=== PATIENT | female | born 1980 | race Caucasian/White ===

== ENCOUNTER → 2017-06-22 14:55 | Outpatient (CLI) | payer BC, SELFPAY ==
--- NOTE | 2017-06-22 15:02 | US_ITS ---
US thyroid HISTORY: ITS.REASON: THYROMEGALY,GRAVES DISEASE IN REMISSION ORDERING PHYSICIAN: Janna Gomez PATIENT AGE: 37 years COMPARISON: 01/30/2008 FINDINGS: Right lobe: 4.8 x 2.2 x 2.6 cm. Heterogeneous echogenicity. No discrete nodule Left lobe: 4.7 x 1.8 x 1.8 cm with heterogeneous echogenicity and no discrete nodule Isthmus: Unremarkable FINDINGS: Mildly enlarged thyroid with heterogeneous echogenicity. No discrete nodule. Not significantly changed
== END ==
PROVIDERS: Family Provider Family Medicine; PCP Family Medicine; Visit Provider Nurse Practitioner Family
DX: E01.0 Iodine-deficiency related diffuse (endemic) goiter (principal); E05.00 Thyrotoxicosis with diffuse goiter without thyrotoxic crisis or storm
CPT/HCPCS: 76536

== ENCOUNTER → 2017-07-21 09:11 | Outpatient (CLI) | payer BC, SELFPAY ==
--- NOTE | 2017-07-21 09:21 | XR_ITS ---
XR chest 2V HISTORY: Shortness of breath ITS.REASON: SOB ORDERING PHYSICIAN: Janna Gomez PATIENT AGE: 37 years COMPARISON: 04/10/2016 FINDINGS: The cardiomediastinal silhouette and pulmonary vascularity are within normal limits. The lungs are clear without infiltrates, suspicious nodules, or pleural effusions. There is minimal thoracic curvature convex right. A calcified granulomas present in the left upper lobe No acute bony abnormalities. IMPRESSION: No change with no acute finding
[2017-07-21 10:02] VITALS: PULSE 87; PULSE 90
== END ==
PROVIDERS: Family Provider Family Medicine; PCP Family Medicine; Visit Provider Nurse Practitioner Family
DX: R06.02 Shortness of breath (principal)
CPT/HCPCS: 71046; 94060; 94640

== ENCOUNTER 2017-10-20 17:36 | Observation (INO) ==
[2017-10-20 18:33] LABS: Basophils % 0.3 % (0.1-2.0); Eosinophils # 0.2 K/mm3 (0.0-0.4); Eosinophils % 2.2 % (0.1-12.0); Hematocrit 39.1 % (37.0-47.0); Hemoglobin 13.3 g/dL (12.2-16.2); Lymphocytes # 1.8 K/mm3 (0.7-4.5); Lymphocytes % 23.7 K/mm3 (10-50); Mean Corpuscular HGB Conc 34.1 g/dL (31.8-35.4); Mean Corpuscular Hemoglobin 28.7 pg (27.0-31.2); Mean Corpuscular Volume 84.3 fl (81-99); Mean Platelet Volume 8.7 fl (7.4-10.4); Monocytes # 0.3 K/mm3 (0.1-1.0); Monocytes % 4.4 % (1.7-9.3); Neutrophils # 5.3 K/mm3 (1.8-7.8); Neutrophils % 69.3 % (37.0-80.0); Platelet Count 177 K/mm3 (142-424); Red Blood Count 4.64 M/mm3 (4.20-5.40); Red Cell Distribution Width 13.5 % (11.5-17.5); White Blood Count 7.7 K/mm3 (4.8-10.8)
[2017-10-20 18:44] LABS: Albumin Level 4.2 gm/dL (3.4-5.0); Albumin/Globulin Ratio 0.9 (1.1-1.8); Anion Gap 14.3 mEq/L (5-15); Bilirubin,Total 0.5 mg/dL (0.2-1.0); Calcium 9.8 mg/dL (8.5-10.1); Globulin 4.5 gm/dl (1.3-3.2); Potassium 3.3 mmoL/L (3.5-5.1); Total Protein,Serum 8.7 gm/dL (6.4-8.2)
--- NOTE | 2017-10-20 19:20 | Emergency Department Note ---
ED Disposition Clinical Impression: Acute appendicitis Qualifiers: Acute appendicitis type: unspecified acute appendicitis type Qualified Code(s) : K35.80 - Unspecified acute appendicitis Disposition: Admitted as Observation Condition on Discharge: Good Instructions: DI for Acute Abdomen Referrals: Janna Gomez APRN [Primary Care Provider] - - Critical Care Critical Care Time: No Attestation: On 10/20/17, the high probability of a clinically significant, sudden or life threatening deterioration of the following system(s) required my full and direct attention, intervention and personal management. The time I documented below is in addition to time spent performing reported procedures but includes the following listed in this critical care notation. Medical Decision Making - Medical Records Medical records reviewed: Yes: I reviewed the patient's medical records. - Klever Inquiry Pt receiving controlled substance: No Vital Signs: 10/20/17 17:53 10/20/17 18:08 Temperature 99.4 F 99.4 F Temperature Source Temporal Artery Scan Oral Pulse Rate [Brachial] 89 85 Respiratory Rate 18 16 Blood Pressure [Right Arm] 154/90 143/88 Blood Pressure Mean [Right Arm] 111 106 Blood Pressure Source [Right Arm] Automatic Cuff Blood Pressure Position [Right Arm] Sitting Sitting 02 Sat by Pulse Oximetry 100 98 Oxygen Delivery Method Room Air Room Air - Lab Data Lab results reviewed: Yes: I reviewed the patient's lab results. Lab Results 10/20/17 17:47: Urine Color Yellow, Urine Appearance Slightly cloudy, Urine pH 7.5, Ur Specific [place] 1.015, Urine Protein Negative, Urine Glucose (UA) Negative, Urine Ketones Negative, Urine Blood Trace, Urine Nitrate Negative, Urine Bilirubin Negative, Urine Urobilinogen 0.2, Ur Leukocyte Esterase Negative 10/20/17 18:20: WBC 7.7, RBC 4.64, Hgb 13.3, Hct 39.1, MCV 84.3, MCH 28.7, MCHC 34.1, RDW 13.5, Plt Count 177, MPV 8.7, Neut % (Auto) 69.3, Lymph % (Auto) 23.7 , [place] % (Auto) 4.4, Eos % (Auto) 2.2, Baso % (Auto) 0.3, Neut # (Auto) 5.3, Lymph # (Auto) 1.8, [place] # (Auto) 0.3, Eos # (Auto) 0.2, Baso # (Auto) 0.0 10/20/17 18:20: Sodium 138, Potassium 3.3 L, Chloride 101, Carbon Dioxide 26, Anion Gap 14.3, BUN 9, Creatinine 0.96, Estimated Creat Clear 81, Estimated GFR 66, Est GFR ( Amer) 80, Glucose 97, Calcium 9.8, Total Bilirubin 0.5, AST 12 L, ALT 12, Alkaline Phosphatase 66, Total Protein 8.7 H, Albumin 4.2, Globulin 4.5 H, Albumin/Globulin Ratio 0.9 L Result diagrams: 10/20/17 18:20 10/20/17 18:20 Orders (Tests/Meds): ORDERS Category Date Time Status CT abdomen pelvis wo con Stat Cat Scan 10/20/17 18:10 Taken - CT Data CT Scan: Abdomen, Pelvis Time Received: 19:[address] Reviewed: Yes: I have viewed the radiologist's interpretation Preliminary Findings: Abnormal (easrly appendicitis) - Physician Consults Physician Consulted: maggi Reason -: Admission, Pt condition Nausea/Vomiting/Diarrhea HPI - General Chief complaint: Abdominal Pain Stated complaint: Right lower side pain Time Seen by Provider: 10/20/17 19:20 Mode of Arrival: Ambulatory Source of Information: Patient Limitations: No Limitations Description of Symptoms (Recalled from ER Triage Doc. by RN): TO ED PER PVT CAR WITH C/O RT SIDE BACK PAIN RADIATING AROUND TO RLQ STARTING TODAY. SEEN AT A CLINIC TODAY WAS TOLD "HE DIDN'T THINK IT WAS APPENDICITIS" PT STATES PAIN GOT WORSE SO CAME TO THE HOSPITAL. PT DENIES ANY FEVER, CHILLS, NAUSEA OR VOMITING. STATES PAIN WORSE WITH WALKING. - History of Present Illness HPI Narrative: wf with progressive rt lower abd with nausea with no fever or rash and no trauma MD complaint: nausea, abdominal pain Onset (ago): day(s) Associated Abdominal Pain: Yes Location of pain: RLQ Severity: moderate Quality: dull, constant Consistency: constant - Related Data Home Medications Medication Instructions Recorded Confirmed levothyroxine 25 mcg tablet 25 mcg PO DAILY 90 Days #90 tab 08/13/17 10/20/17 sertraline 25 mg tablet 25 mg PO Q24H 08/13/17 10/20/17 Allergies Allergy/AdvReac Type Severity Reaction Status Date / Time No Known Allergies Allergy Verified 08/13/17 15:28 [facility] History I have reviewed the patient's past medical history: Yes Medical History: Reports:: Depression Other Surgeries: Yes: Hysterectomy-Partial Amputation: No Fractures: No - Social History Smoking Status: Former smoker Alcohol Intake: never Alcohol Intake Frequency:: holidays/special occasions only - Psychiatric History Expresses thoughts of harming self/others: None Suicide Plan Description: No Plan Pschychiatric History:: Reports:: Depression ROS Obtained: Yes All systems reviewed & no additional complaints - Constitutional Constitutional: Denies fever(s) - Eyes Eyes: Denies change in vision - ENT Ears, Nose, Mouth, and Throat: Denies sore throat - Cardiovascular Cardiovascular: Denies chest pain at rest - Respiratory Respiratory: No cough - Gastrointestinal Gastrointestingal: Reports: as per HPI, abdominal pain, nausea - Genitourinary Female Genitourinary: Denies hematuria - Musculoskeletal Musculoskeletal: Denies joint pain, Denies joint swelling - Integumentary/Breasts Skin/Breast: Denies rash - Neurologic Neurologic: Denies seizure-like activity Physical Exam - General General appearance: alert, in no apparent distress - Head Head exam: normocephalic - Eye Eye exam: Present: PERRL, EOMI. Absent: scleral icterus - ENT ENT exam: Present: mucous membranes moist - Neck Neck exam: Present: trachea midline - Respiratory Respiratory exam: Absent: respiratory distress - Cardiovascular Cardiovascular exam: Present: regular rate - Abdominal Exam Abdominal exam: Present: soft, tenderness, tenderness at McBurney's Point Abdominal tenderness: Present: RLQ - Extremities Exam Extremities exam: Absent: full ROM - Neurological Exam Neurological exam: Present: alert, oriented X3, CN II-XII intact - Psychiatric Psychiatric exam: Present: normal affect - Skin Skin exam: Absent: rash
--- NOTE | 2017-10-20 21:43 | Progress Note ---
[facility] Anesthesia Checklist - Structural Data Admitted From: Home Planned Operative Procedure/s: lap appy Consent for Planned Operative Procedure(s) Verified: Yes Verified Documents: Surgical Consent - Airway Assessment C-Spine Mobility Assessed: Yes TMJ Mobility Assessed: Yes Dentition: Edentulous - Neurological Assessment Level of Consciousness: Awake, Alert, Appropriate - Anesthesia Plan Anesthesia Risk discussed: Yes Anesthesia Plan: Verified ASA Class: II Anesthesia Type: General [facility] Anesthesia HX I have reviewed the patient's past medical history: Yes Medical History: Reports:: Depression Denies:: Seizures Other Surgeries: Yes: Hysterectomy-Partial Amputation: No Fractures: No
--- NOTE | 2017-10-20 21:44 | Progress Note ---
[facility] Anesthesia Record Part I Intake, IV Amount: 1,500 Estimated blood loss (mL): 0 Urine output (mL): 300 Blood Pressure: 126/64 SaO2: 99 Pulse Rate: 57 Respiratory Rate: 12 Temperature: 97.7 F Patient is:: Awake, Stable Stable to PACU at:: 21:40
--- NOTE | 2017-10-20 21:44 | Progress Note ---
[facility] Anesthesia Record Part II Discharge Time: 22:10 Destination: floor PACU nurse assessment reviewed?: Yes Patient Condition:: Good Anesthesia Complications:: None
--- NOTE | 2017-10-20 21:47 | Operative Note ---
Date of procedure: 10/20/17 Pre-op Diagnosis:: Appendicitis Post-op Diagnosis:: Same Procedure performed:: Laparoscopic appendectomy Surgeon:: Nestor Vann MD Schedule Hanger(s):: Carlo Arrington DIRECTOR STATISTICAL PROGRAMMING:: Wilfrid Hamilton Anesthesia: GETA Estimated blood loss (mL): 10 Operative findings:: Inflamed retrocecal appendix with no sign of perforation Operative note:: After informed consent was obtained, the patient was taken to the operating room and placed in the supine position. General anesthesia was induced and her abdomen was prepped and draped in a sterile fashion. After infiltration with local anesthetic an incision was made just below the umbilicus. A Veress needle was placed in position. The abdomen was insufflated. A 12 mm optical trocar was placed in position. Under direct visualization, a 5 mm trocar was placed in the suprapubic position and an additional 5 mm trocar was placed in the left lower quadrant. Evaluation of the right lower quadrant revealed the appendix to be retrocecal and careful elevation of the appendix revealed inflammation, but no sign of perforation. No significant suppurative changes were noted. Harmonic dg were utilized to transect through the mesoappendix. A TRAVIS stapler was utilized to take the appendix at its base. The appendix was placed in a retrieval bag and removed through the infraumbilical trocar site. The right lower quadrant was thoroughly irrigated. No active bleeding or sign of injury was noted. The staple line appeared to be intact with no sign of leakage and no sign of bleeding. The fascia at the infraumbilical trocar site was reapproximated with 0 Ethibond. Pneumoperitoneum was released as the remaining trocars were removed. All wounds were irrigated and skin was closed with 4-0 Monocryl. Steri-Strips were applied. The patient's anesthetic agents were reversed and she was extubated prior to transfer to recovery. Condition: stable Disposition: PACU Specimens:: Appendix Complications:: No immediate
--- NOTE | 2017-10-21 07:00 | Progress Note ---
Subjective Narrative: Overall patient feels relatively well. She states that she is hungry. His only had a few sips of some clears. He still does have some right lower quadrant discomfort. Exam Vital signs and Labs for Last 24 Hours: Temp Pulse Resp BP Pulse Ox 98.4 F 66 20 116/64 98 10/21/17 05:00 10/21/17 05:00 10/21/17 05:00 10/21/17 05:00 10/21/17 05:00 Laboratory Results - last 24 hr 10/20/17 17:45: Urine Color Yellow, Urine Appearance Clear, Urine pH 7.0, Ur Specific [place] 1.010, Urine Protein Negative, Urine Glucose (UA) Negative, Urine Ketones Negative, Urine Blood Negative, Urine Nitrate Negative, Urine Bilirubin Negative, Urine Urobilinogen 0.2, Ur Leukocyte Esterase Negative, Urine WBC 3-5, Ur Squamous Epith Cells 5-10, Urine Bacteria 1+ 10/20/17 17:47: Urine Color Yellow, Urine Appearance Slightly cloudy, Urine pH 7.5, Ur Specific [place] 1.015, Urine Protein Negative, Urine Glucose (UA) Negative, Urine Ketones Negative, Urine Blood Trace, Urine Nitrate Negative, Urine Bilirubin Negative, Urine Urobilinogen 0.2, Ur Leukocyte Esterase Negative 10/20/17 18:20: WBC 7.7, RBC 4.64, Hgb 13.3, Hct 39.1, MCV 84.3, MCH 28.7, MCHC 34.1, RDW 13.5, Plt Count 177, MPV 8.7, Neut % (Auto) 69.3, Lymph % (Auto) 23.7 , [place] % (Auto) 4.4, Eos % (Auto) 2.2, Baso % (Auto) 0.3, Neut # (Auto) 5.3, Lymph # (Auto) 1.8, [place] # (Auto) 0.3, Eos # (Auto) 0.2, Baso # (Auto) 0.0 10/20/17 18:20: Sodium 138, Potassium 3.3 L, Chloride 101, Carbon Dioxide 26, Anion Gap 14.3, BUN 9, Creatinine 0.96, Estimated Creat Clear 81, Estimated GFR 66, Est GFR ( Amer) 80, Glucose 97, Calcium 9.8, Total Bilirubin 0.5, AST 12 L, ALT 12, Alkaline Phosphatase 66, Total Protein 8.7 H, Albumin 4.2, Globulin 4.5 H, Albumin/Globulin Ratio 0.9 L I & O for Last 24 hours: Intake & Output 10/18/17 10/19/17 10/20/17 10/21/17 11:59 11:59 11:59 11:59 Intake Total 2774 / 2774 Output Total 300 / 300 Balance 2474 / 2474 Weight 153 lb 4 oz - *Routine Abdominal Exam Present: soft Progress Note: A&P Assessment and Plan for All Diagnoses:: I will give her a more substantial diet. If tolerated may be able to discharge later.
[2017-10-21 07:21] VITALS: BP 116/53
--- NOTE | 2017-10-21 07:32 | Pharmacy Consult Notes ---
[facility] Pharmacy VTE Monitoring - Patient Demographics Admission date: 10/21/17 Report Date: 10/21/17 Time: 07:31 Allergies/Adverse Reactions: Patient Allergies No Known Allergies Allergy (Verified 08/13/17 15:28) Height: 1.57 m Weight: 69.513 kg Patient Problems: Current Active Problems Acute appendicitis (Acute) - VTE Risk Labs: VTE Related Lab Results Hgb 13.3 g/dL (12.2-16.2) 10/20/17 18:20 Hct 39.1 % (37.0-47.0) 10/20/17 18:20 Plt Count 177 K/mm3 (142-424) 10/20/17 18:20 BUN 9 mg/dL (7-18) 10/20/17 18:20 Creatinine 0.96 mg/dL (0.55-1.02) 10/20/17 18:20 Estimated Creat Clear 81 mL/min (0-300) 10/20/17 18:20 Was VTE Risk Assessment Performed: Yes VTE Score: 2 VTE Risk Level: Very Low Risk Clinical Trial Participant: No - Prophylaxis VTE Prophylaxis Ordered?: Yes Types of VTE Prophylaxis: TEDS Knee High Location of Applied Device: Bilateral Lower Extremeties
--- NOTE | 2017-10-21 11:52 | Discharge Summary ---
General - General Admission date:: 10/20/17 Discharge date: 10/21/17 HPI HPI: Patient is a pleasant healthy 37-year-old white female who presented to the emergency department yesterday evening with findings consistent with acute appendicitis. Hospital Course Hospital Course: Patient was taken emergently to the operating room by Dr. Vann and underwent successful laparoscopic appendectomy. She was found to have a retrocecal appendix. Please see operative dictation for complete details. She was admitted postoperatively and started on clear liquid diet. She tolerated this. The following morning she was feeling well other than some minor surgical discomfort. She was advanced to a bland diet which she tolerated. Later that day she was discharged home. Objective Vital signs: Temp Pulse Resp BP Pulse Ox 98.2 F 57 L 20 116/53 99 10/21/17 07:21 10/21/17 07:21 10/21/17 07:21 10/21/17 07:21 10/21/17 07:21 Results Labs on day of discharge: Labs from last 24 hours 10/20/17 10/20/17 10/20/17 18:20 18:20 17:47 WBC 7.7 RBC 4.64 Hgb 13.3 Hct 39.1 MCV 84.3 MCH 28.7 MCHC 34.1 RDW 13.5 Plt Count 177 MPV 8.7 Neut % (Auto) 69.3 Lymph % (Auto) 23.7 [place] % (Auto) 4.4 Eos % (Auto) 2.2 Baso % (Auto) 0.3 Neut # (Auto) 5.3 Lymph # (Auto) 1.8 [place] # (Auto) 0.3 Eos # (Auto) 0.2 Baso # (Auto) 0.0 Sodium 138 Potassium 3.3 L Chloride 101 Carbon Dioxide 26 Anion Gap 14.3 BUN 9 Creatinine 0.96 Estimated Creat Clear 81 Estimated GFR 66 Est GFR ( Amer) 80 Glucose 97 Calcium 9.8 Total Bilirubin 0.5 AST 12 L ALT 12 Alkaline Phosphatase 66 Total Protein 8.7 H Albumin 4.2 Globulin 4.5 H Albumin/Globulin Ratio 0.9 L Urine Color Yellow Urine Appearance Slightly cloudy Urine pH 7.5 Ur Specific [place] 1.015 Urine Protein Negative Urine Glucose (UA) Negative Urine Ketones Negative Urine Blood Trace Urine Nitrate Negative Urine Bilirubin Negative Urine Urobilinogen 0.2 Ur Leukocyte Esterase Negative Urine WBC Ur Squamous Epith Cells Urine Bacteria 10/20/17 17:45 WBC RBC Hgb Hct MCV MCH MCHC RDW Plt Count MPV Neut % (Auto) Lymph % (Auto) [place] % (Auto) Eos % (Auto) Baso % (Auto) Neut # (Auto) Lymph # (Auto) [place] # (Auto) Eos # (Auto) Baso # (Auto) Sodium Potassium Chloride Carbon Dioxide Anion Gap BUN Creatinine Estimated Creat Clear Estimated GFR Est GFR ( Amer) Glucose Calcium Total Bilirubin AST ALT Alkaline Phosphatase Total Protein Albumin Globulin Albumin/Globulin Ratio Urine Color Yellow Urine Appearance Clear Urine pH 7.0 Ur Specific [place] 1.010 Urine Protein Negative Urine Glucose (UA) Negative Urine Ketones Negative Urine Blood Negative Urine Nitrate Negative Urine Bilirubin Negative Urine Urobilinogen 0.2 Ur Leukocyte Esterase Negative Urine WBC 3-5 Ur Squamous Epith Cells 5-10 Urine Bacteria 1+ Discharge Plan - Patient Discharge Instructions ACTIVITY: No heavy lifting DIET: advance to your usual diet Patient Instructions: DI for Acute Abdomen - Follow up Plan Follow up with: Janna Gomez APRN [Primary Care Provider] - Nestor Vann MD [Staff Physician] - 11/01/17 Disposition: Home, Self-Fdc Medications: Home Medications Medication Instructions Recorded Confirmed Type sertraline 25 mg tablet 25 mg PO QPMWM 08/13/17 10/21/17 History Levothyroxine Sodium 75 mcg PO DAILY 10/21/17 10/21/17 History [Levothyroxine 75mcg (0.075mg) Tab] Prescriptions/Medication Reconciliation: Continue sertraline 25 mg tablet 25 mg PO QPMWM Levothyroxine Sodium [Levothyroxine 75mcg (0.075mg) Tab] 75 mcg PO DAILY
== END 2017-10-21 13:17 | disposition home or self-care (01) ==
LOC: UTC 17:36 → SDC 20:00 → 2ND 20:00
PROVIDERS: ADMIT Surgery; ATTEND Surgery
CPT/HCPCS: 74176; 80053; 81001; 81003; 85025; 99283; G0378; J2405; J2710

== ENCOUNTER → 2018-09-11 10:12 | Outpatient (CLI) | payer BC, SELFPAY ==
--- NOTE | 2018-09-11 10:24 | XR_ITS ---
EXAM: XR lumbar spine min 4V HISTORY: ITS.REASON: ACUTE RT SIDE LOW BACK PAIN WITH SCIATICA ORDERING PHYSICIAN: Janna Gomez PATIENT AGE: 38 years COMPARISON: None FINDINGS: There is mild lumbar scoliosis convex left. No fracture or dislocation. No lytic or blastic change. The disc spaces are well-preserved. There are 2 stones along the lower pole left kidney the largest of which measures 6 mm. Interval surgical clips are present in the pelvis. IMPRESSION: 1. Lumbar scoliosis. 2. Left nephrolithiasis
--- NOTE | 2018-09-11 10:30 | US_ITS ---
US transvaginal HISTORY: Right-sided pelvic pain ORDERING PHYSICIAN: Janna Gomez PATIENT AGE: 38 years Comparison: 10/29/2016 FINDINGS: There has been an interval hysterectomy. The vaginal cuff has an unremarkable appearance. The left ovary is 3 x 1.5 x 1.7 cm. There are 2 small cysts which are less than a centimeter The right ovary is 4 x 2.9 x 3.3 cm. There is a 3 cm simple appearing right ovarian cyst. No cul-de-sac fluid. IMPRESSION: 3 cm simple appearing right ovarian cyst
== END ==
PROVIDERS: PCP Nurse Practitioner Family; Visit Provider Nurse Practitioner Family
DX: R10.2 Pelvic and perineal pain (principal); M54.41 Lumbago with sciatica, right side
CPT/HCPCS: 72110; 76830

== ENCOUNTER → 2019-07-20 08:39 | Outpatient (CLI) | payer BC, SELFPAY ==
--- NOTE | 2019-07-20 08:47 | US_ITS ---
PROCEDURE: US ABDOMEN LIMITED CLINICAL INDICATION: ABD PAIN Upper abdominal pain COMPARISON: No exams were available for comparison FINDINGS: PANCREAS: Unremarkable. No obvious mass or abnormal fluid collection. No ductal dilatation LIVER: No focal liver lesions demonstrated. Homogeneous echogenicity. No intrahepatic biliary ductal dilatation evident. There is appropriate direction of blood flow within a non dilated portal vein RIGHT KIDNEY: Unremarkable. Normal size and echogenicity. No hydronephrosis GALLBLADDER: No gallstones, gallbladder wall thickening, pericholecystic fluid, or biliary dilatation. IMPRESSION: Unremarkable limited abdominal ultrasound as detailed above disc Dictated by: Felipe Albarran MD 07/20/2019 15:56 Electronically signed by Felipe Albarran MD in [place] 07/20/2019 15:56
== END ==
LOC: RAD 08:39
PROVIDERS: PCP Nurse Practitioner Family; Visit Provider Nurse Practitioner Family
DX: R10.10 Upper abdominal pain, unspecified (principal)
CPT/HCPCS: 76705

== ENCOUNTER → 2019-09-17 15:49 | Outpatient (CLI) | payer BC, SELFPAY ==
[2019-09-18 09:01] LABS: Covid-19 Nasal PCR Sendout Lex NOT DETECTED
--- NOTE | 2019-09-18 09:21 | INFXCTL.NOTE ---
notified patient of negative COVID 19 results.
== END ==
PROVIDERS: Visit Provider Nurse Practitioner Family
DX: R50.9 Fever, unspecified (principal); R06.02 Shortness of breath

== ENCOUNTER → 2020-02-21 15:19 | Outpatient (CLI) | payer BC, SELFPAY ==
--- NOTE | 2020-02-21 15:22 | CT_ITS ---
PROCEDURE: CT SINUS WO CON CLINICAL HISTORY: ACUTE MAXILLARY SINUSITIS recurrent sinusits....facial and head pressure, bilat ear pain no prior COMPARISON: No exams were available for comparison TECHNIQUE: Axial images obtained with sagittal and coronal reformats. All CT scans at the facility use one or more dose reduction, viz: automated exposure control, ma/kV adjustment per patient size (including targeted exams where dose is matched to indication, i.e. head), or iterative reconstruction technique. FINDINGS: The frontal, ethmoid, maxillary, and sphenoid sinuses have an unremarkable appearance. No mucosal thickening sinus air-fluid level or sinus mass evident. There is mild leftward nasal septal deviation. The ostiomeatal units are patent. The TMJs have an unremarkable appearance. No mastoid effusion. The middle ears are aerated. The orbits have an unremarkable appearance.. IMPRESSION: Mild leftward nasal septal deviation otherwise negative maxillofacial CT. Dictated by: Felipe Albarran MD 02/22/2020 09:22 Felipe Albarran MD in [place] 02/22/2020 09:22
== END ==
PROVIDERS: PCP Nurse Practitioner Family; Visit Provider Nurse Practitioner Family
DX: J01.01 Acute recurrent maxillary sinusitis (principal)
CPT/HCPCS: 70486

== ENCOUNTER → 2020-03-28 10:39 | Outpatient (CLI) | payer BC, SELFPAY ==
--- NOTE | 2020-03-28 10:45 | MR_ITS ---
PROCEDURE: MR HEAD/BRAIN WO/W CON CLINICAL INDICATION: RECURRENT HEADACHE Headache and earache with pressure in head COMPARISON: No exams were available for comparison TECHNIQUE: Routine multiplanar multi echo sequences are performed without and with gadolinium enhancement. FINDINGS: No midline shift, mass effect, intracranial hemorrhage, or hydrocephalus. No evidence of acute infarction. No enhancing lesions are evident. The cerebellopontine angles, cerebellum, and brainstem are unremarkable. There is normal lyon-white matter differentiation with no abnormal white matter signal intensity evident. The pituitary, optic chiasm, corpus callosum, and craniocervical junction have an unremarkable appearance. No mastoid effusion or sinus air-fluid level. IMPRESSION: Negative MRI of the brain without and with contrast Dictated by: Felipe Albarran MD 03/29/2020 11:48 Felipe Albarran MD in [place] 03/29/2020 11:48
== END ==
PROVIDERS: PCP Nurse Practitioner Family; Visit Provider Nurse Practitioner Family
DX: R51.9 Headache, unspecified (principal)
CPT/HCPCS: 70553; A9576

== ENCOUNTER 2020-06-29 18:14 | Emergency (ER) | payer BC, SELFPAY ==
[2020-06-29 18:20] VITALS: BP 146/84; PULSE 77; RESP 19; TEMP 36.8; O2SAT 98; BMI 26.6
--- NOTE | 2020-06-29 18:51 | HMH.EDUTC ---
[facility] [place] Disposition Clinical Impression: URI (upper respiratory infection) Qualifiers: URI type: unspecified URI Qualified Code(s): J06.9 - Acute upper respiratory infection, unspecified Disposition: Home, Self-Care Condition on Discharge: Good Instructions: Acute Bronchitis, Sinusitis, DI for Cough -- Adult Additional Instructions: *Monitor Temp, Over the counter Motrin or Tylenol as directed/as needed Tylenol every 4 hours and Motrin every 6 hours (as long as your family doctor has told you that you can take it) for fever or pain. and straight to ER if unable to lower temp less than 101.0 after medication given *Warm salt water gargles may help to soothe the throat *Throat Lozenges *Warm fluids like tea with honey may help to soothe the throat *Sleep elevated *Humidifier/Vaporizer Follow up IMMEDIATELY for new or worsening symptoms or no Noticeable improvement over the next 48-72 hours. 911 for difficulty breathing or swallowing You were tested for today for COVID19 your test result should be back in the next 24-48 hours, you may call to the [facility] to see if your test results are back in the next 48 hours [phone] [facility] hours are 9am-9pm You was given a handout with instructions for Self Quarantine and Self isolation for while you wait on test results and what to do if they are positive If you are positive the Health Dept will be contacting you also Prescriptions: methylPREDNISolone [Medrol 4mg tab] 4 mg PO DIRECTED #21 tab Transmission Status: Pending to [facility] guaiFENesin [Mucinex] 600 mg PO Q12H PRN #20 tab.er.12h PRN Reason: Cough Transmission Status: P[facility] to [facility] Azithromycin [Z-Shelton 250mg Tab] 250 mg PO DIRECTED #6 tab Transmission Status: Pending to [facility] Referrals: Janna Gomez APRN [Primary Care Provider] - As needed Forms: Work/School Release Time of Disposition: 18:57 Medical Decision Making - Klever Inquiry Pt receiving controlled substance: No Klever was queried for this patient: No Vital Signs: 06/29/20 18:20 Temperature 98.2 F Temperature Source Oral Pulse Rate [Right Brachial] 77 Respiratory Rate 19 Blood Pressure [Right Arm] 146/84 H Blood Pressure Mean [Right Arm] 104 Blood Pressure Source [Right Arm] Automatic Cuff Blood Pressure Position [Right Arm] Sitting 02 Sat by Pulse Oximetry 98 Oxygen Delivery Method Room Air Orders (Tests/Meds): ORDERS Category Date Time Status Covid-19 Nasal PCR ([facility]) Routine Lab 06/29/20 18:32 Ordered [facility] UTC HPI - General Stated complaint: congestion cough Time Seen by Provider: 06/29/20 18:51 Mode of Arrival: Ambulatory Source of Information: Patient Limitations: No Limitations Description of Symptoms (Recalled from Triage Doc. by RN): PATIENT C/O COUGH, SOA, AND CHEST CONGESTION X 3 DAYS HEENT Symptoms (Recalled from RN notes): Yes Resp Symptoms (Recalled from RN notes): Yes Skin Symptoms (Recalled from RN notes): No MS Symptoms (Recalled from RN notes): No Functional Status (Recalled from RN notes): WNL - History of Present Illness Provider Complaint: Patient state that she has been having chest congestion on and off for several months State that for the last few days it has returned and feels like she is getting congested in her chest again State that she wanted to come in and get checked before it got too bad - Related Data Home Medications Medication Instructions Recorded Confirmed Levothyroxine Sodium [Synthroid 88 mcg PO DAILY 07/06/19 08/13/19 88mcg (0.088mg) tablet] Previous Rx's Medication Instructions Recorded benzonatate 100 mg capsule 100 mg PO TID PRN #30 cap 08/13/19 loratadine 10 mg disintegrating 10 mg PO DAILY #30 tab 08/13/19 tablet Azithromycin [Z-Shelton 250mg Tab] 250 mg PO DIRECTED #6 tab 06/29/20 guaiFENesin [Mucinex] 600 mg PO Q12H PRN #20 tab.er.12h 06/29/20 methylPREDNISolone [Medrol 4mg 4 mg PO DIRECTED #21 tab
[2020-06-29 19:02] VITALS: BP 146/84; PULSE 77; RESP 19; TEMP 36.8; O2SAT 98
== END 2020-06-29 19:04 | disposition home or self-care (01) ==
PROVIDERS: Emergency Provider Nurse Practitioner; PCP Nurse Practitioner Family
DX: Z20.822 Contact with and (suspected) exposure to COVID-19 (principal); J06.9 Acute upper respiratory infection, unspecified; Z87.442 Personal history of urinary calculi
CPT/HCPCS: 99202; G0463; U0003

== ENCOUNTER 2020-07-19 10:04 | Emergency (ER) | payer BC, SELFPAY ==
[2020-07-19 10:05] VITALS: BP 123/78; PULSE 108; RESP 22; TEMP 36.6; O2SAT 99; BMI 26.6
--- NOTE | 2020-07-19 10:36 | HMH.EDUTC ---
[facility] [place] Disposition Clinical Impression: Left leg pain, Left leg swelling, Bronchitis Disposition: Home, Self-Care Condition on Discharge: Good Instructions: DI for Acute Bronchitis Additional Instructions: The technical support representative will be here to do your venous doppler of your leg at 2:30 pm today. Please return to the hospital for the ultrasound of your leg. If you have any worsening symptoms before they call you, please go straight to the ER. Prescriptions: Brompheniramine/Pseudoephed/Dm [Bromfed Dm Cough Syrup] 5 ml PO Q6HP PRN #240 syrup PRN Reason: Cough Transmission Status: Received by [facility] Azithromycin [Z-Shelton 250mg Tab*] 250 mg PO UD DOSE PK #6 tab Transmission Status: Received by [facility] Referrals: Janna Gomez APRN [Primary Care Provider] - Time of Disposition: 10:55 Medical Decision Making - Medical Records Medical records reviewed: No: I reviewed the patient's medical records. - Klever Inquiry Pt receiving controlled substance: No Vital Signs: 07/19/20 10:05 07/19/20 10:58 Temperature 97.9 F 97.9 F Temperature Source Oral Pulse Rate 108 H Pulse Rate [Right Brachial] 108 H Respiratory Rate 22 22 Blood Pressure 123/78 Blood Pressure [Right Arm] 123/78 Blood Pressure Mean [Right Arm] 93 Blood Pressure Source [Right Arm] Automatic Cuff Blood Pressure Position [Right Arm] Sitting 02 Sat by Pulse Oximetry 99 Oxygen Delivery Method Room Air - US Data US Images: Lower Extremity ED US Reviewed: Yes: I have reviewed the patient's US results Preliminary Findings: Normal/NAD [facility] HPI - General Stated complaint: leg pain, congestion Time Seen by Provider: 07/19/20 10:36 Mode of Arrival: Ambulatory Source of Information: Patient Limitations: No Limitations Description of Symptoms (Recalled from Triage Doc. by RN): PATIENT C/O LEFT LEG PAIN X 5 DAYS. PATIENT STATES PAIN IS WORSE BEHIND KNEE. SHE ALSO C/O COUGH AND CHEST FULLNESS THAT STARTED THIS MORNING. HEENT Symptoms (Recalled from RN notes): No Resp Symptoms (Recalled from RN notes): Yes Skin Symptoms (Recalled from RN notes): No MS Symptoms (Recalled from RN notes): Yes Functional Status (Recalled from RN notes): WNL - History of Present Illness Provider Complaint: She states that she has had left leg pain for the past 2 days. She came here with worries of having a dvt. - Related Data Home Medications Medication Instructions Recorded Confirmed Levothyroxine Sodium [Synthroid 88 mcg PO DAILY 07/06/19 07/19/20 88mcg (0.088mg) tablet] Previous Rx's Medication Instructions Recorded sulfamethoxazole 800 1 tab PO Q12H 10 Days #20 tab 07/16/20 mg-trimethoprim 160 mg tablet Azithromycin [Z-Shelton 250mg Tab*] 250 mg PO UD DOSE PK #6 tab 07/19/20 Brompheniramine/Pseudoephed/Dm 5 ml PO Q6HP PRN #240 syrup 07/19/20 [Bromfed Dm Cough Syrup] Allergies Allergy/AdvReac Type Severity Reaction Status Date / Time No Known Allergies Allergy Verified 07/16/20 16:25 - Worker's Comp Is this a Worker's Comp case?: No [facility] History - Hepatitis A Screen Drug use history?: No High risk sexual behaviors?: No History of sexually transmitted infection?: No Currently employed?: No Childcare worker?: No Do you have indoor plumbing?: Yes Do you have electricity?: Yes Attestation statement:: This patient has been screened for Hepatitis A risk factors. I have reviewed the patient's past medical history: Yes Medical History: Reports:: Depression, Kidney Stones, Urinary Tract Infection Denies:: Cancer, Diabetes Mellitus Type 1, Diabetes Mellitus Type 2, MRSA, Seizures Other Medical History: Reports: Thyroid Disease Other Surgeries: Yes: Appendectomy, Hysterectomy-Partial Amputation: No Fractures: No Comment: 2005-dx. lap. 2017-partial hys - Social History Smoking Status: Former smoker Alcohol Intake: never Alcohol Intake Frequency:: holidays/special occasions only Substance Use
[2020-07-19 10:58] VITALS: BP 123/78; PULSE 108; RESP 22; TEMP 36.6; O2SAT 99
== END 2020-07-19 11:05 | disposition home or self-care (01) ==
PROVIDERS: Emergency Provider Nurse Practitioner Family; PCP Nurse Practitioner Family
DX: M79.605 Pain in left leg (principal); M79.89 Other specified soft tissue disorders; J40 Bronchitis, not specified as acute or chronic
CPT/HCPCS: 99202; G0463

== ENCOUNTER → 2020-07-19 14:22 | Outpatient (CLI) | payer BC, SELFPAY ==
--- NOTE | 2020-07-19 | CA_ITS ---
APPROVED REPORT Left Lower Extremity Venous Study for DVT. Slate Worker: ILA Indications Lower Extremity Pain: Left Pain in left lower extremity. She states her left leg has ached x 5 days but pain is worst in particular behind the left knee. She states she has a pins and needles sensation in the LLE. She denies any trauma. 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 Vein Imaging CFV (L): compressive, spontaneous, phasic, augmentation FEM (L): compressive, spontaneous, phasic, augmentation POP (L): compressive, spontaneous, phasic, augmentation PTV (L): Compressible GSV (L): compressive, spontaneous, phasic, augmentation Peroneals (L):Compressible GAS (L): Compressible Findings No evidence of DVT or superficial thrombophlebitis in the veins scanned of the left lower extremity. Conclusion No evidence of DVT or superficial thrombophlebitis in the veins scanned of the left lower extremity. Critical Notification Critical Value: No Physician Notified Date: 07/19/2020 Time: 15:00 Physician Name: Cliff Glover APRN [facility] Electronically signed by : Catrachita Durand MD 07/24/2020 12:51:08
== END ==
LOC: RT 14:23
PROVIDERS: PCP Nurse Practitioner Family; Visit Provider Nurse Practitioner Family
DX: M79.662 Pain in left lower leg (principal)
CPT/HCPCS: 93971

== ENCOUNTER 2020-08-20 16:55 | Emergency (ER) | payer BC, SELFPAY ==
[2020-08-20] VITALS (22 sets, daily range): BP systolic 113–132; BP diastolic 67–103; PULSE 53–88; RESP 16; TEMP 36.7; O2SAT 99–100; BMI 26.6
--- NOTE | 2020-08-20 17:13 | ECG_ITS ---
APPROVED REPORT Exam: Resting ECG HR:66 bpm ECG Measurements Heart Rate 66 AXES DC 130 P 37 QRSd 82 QRS -9 QT 438 T 69 QTc 459 Conclusion Normal sinus rhythm Low voltage QRS Cannot rule out Anterior infarct, age undetermined Abnormal ECG Electronically signed by : Jeffery Anton, 08/22/2020 11:43:36
--- NOTE | 2020-08-20 17:17 | XR_ITS ---
PROCEDURE: XR CHEST PORTABLE CLINICAL HISTORY: cp Chest pain, left arm pain COMPARISON: CR CXR CHEST(2 VIEWS-NOT PORTABLE) from 04/10/2016 CR CXR2V XR chest 2V from 07/21/2017 CR XR CHEST 2V from 07/06/2019 FINDINGS: The cardiomediastinal silhouette and pulmonary vascularity are within normal limits. The lungs are clear without infiltrates, suspicious nodules, or pleural effusions. No acute bony abnormalities. IMPRESSION: No acute findings. Dictated by: Felipe Albarran MD 08/20/2020 19:28 Felipe Albarran MD in [place] 08/20/2020 19:28
--- NOTE | 2020-08-20 17:28 | HMH.EDGENADL ---
ED Disposition Clinical Impression: Chest pain Qualifiers: Chest pain type: unspecified Qualified Code(s): R07.9 - Chest pain, unspecified Disposition: Home, Self-Care Condition on Discharge: Good Referrals: Janna Gomez APRN [Primary Care Provider] - 3 days Time of Disposition: 20:10 - Critical Care Critical Care Time: No Attestation: On , the high probability of a clinically significant, sudden or life threatening deterioration of the following system(s) required my full and direct attention, intervention and personal management. The time I documented below is in addition to time spent performing reported procedures but includes the following listed in this critical care notation. Medical Decision Making - Medical Records Medical records reviewed: Yes: I reviewed the patient's medical records. - Klever Inquiry Pt receiving controlled substance: No Vital Signs: 08/20/20 17:10 08/20/20 17:15 08/20/20 17:30 Pulse Rate 88 66 56 L Pulse Rate [Right] 81 Respiratory Rate 16 Blood Pressure Blood Pressure [Right Arm] 130/103 H Blood Pressure Mean Blood Pressure Mean [Right Arm] 112 Blood Pressure Source [Right Arm] Automatic Cuff Blood Pressure Position [Right Arm] Sitting 02 Sat by Pulse Oximetry 100 100 100 Oxygen Delivery Method Room Air 08/20/20 17:34 08/20/20 17:45 08/20/20 17:59 Pulse Rate 76 65 71 Pulse Rate [Right] Respiratory Rate Blood Pressure 127/74 Blood Pressure [Right Arm] Blood Pressure Mean 100 Blood Pressure Mean [Right Arm] Blood Pressure Source [Right Arm] Blood Pressure Position [Right Arm] 02 Sat by Pulse Oximetry 99 100 100 Oxygen Delivery Method 08/20/20 18:00 08/20/20 18:01 08/20/20 18:15 Pulse Rate 69 83 Pulse Rate [Right] Respiratory Rate Blood Pressure 130/80 Blood Pressure [Right Arm] Blood Pressure Mean 93 Blood Pressure Mean [Right Arm] Blood Pressure Source [Right Arm] Blood Pressure Position [Right Arm] 02 Sat by Pulse Oximetry 100 99 Oxygen Delivery Method 08/20/20 18:30 08/20/20 18:45 08/20/20 19:00 Pulse Rate 56 L 59 L 63 Pulse Rate [Right] Respiratory Rate Blood Pressure 132/76 113/67 Blood Pressure [Right Arm] Blood Pressure Mean 97 82 Blood Pressure Mean [Right Arm] Blood Pressure Source [Right Arm] Blood Pressure Position [Right Arm] 02 Sat by Pulse Oximetry 100 99 100 Oxygen Delivery Method 08/20/20 19:15 08/20/20 19:30 08/20/20 19:45 Pulse Rate 57 L 61 63 Pulse Rate [Right] Respiratory Rate Blood Pressure 117/72 Blood Pressure [Right Arm] Blood Pressure Mean 84 Blood Pressure Mean [Right Arm] Blood Pressure Source [Right Arm] Blood Pressure Position [Right Arm] 02 Sat by Pulse Oximetry 99 100 100 Oxygen Delivery Method - Lab Data Lab results reviewed: Yes: I reviewed the patient's lab results. Lab Results 08/20/20 17:11: WBC 7.6, RBC 4.67, Hgb 14.0, Hct 41.1, MCV 88.1, MCH 30.1, MCHC 34.1, RDW 13.4, Plt Count 207, MPV 8.8, Neut % (Auto) 73.7, Lymph % (Auto) 21.0, Whitfield % (Auto) 3.3, Eos % (Auto) 1.4, Baso % (Auto) 0.5, Neut # (Auto) 5.6, Lymph # (Auto) 1.6, Whitfield # (Auto) 0.3, Eos # (Auto) 0.1, Baso # (Auto) 0.0 08/20/20 17:11: Sodium 137, Potassium 3.6, Chloride 103, Carbon Dioxide 24, Anion Gap 13.6, BUN 5 L, Creatinine 0.80, Estimated Creat Clear 99, Estimated GFR 80, Est GFR ( Amer) 97, Glucose 120 H, Calcium 9.4, Total Bilirubin 0.6, AST 23, ALT 8 L, Alkaline Phosphatase 51, Troponin I < 0.01, Total Protein 8.4 H, Albumin 4.7, Globulin 3.7 H, Albumin/Globulin Ratio 1.3 Result diagrams: 08/20/20 17:11 08/20/20 17:11 Orders (Tests/Meds): ORDERS Category Date Time Status Troponin I Q3H Lab 08/20/20 19:18 Received Troponin I Q3H Lab 08/20/20 23:30 Ordered - Radiology Data #1 Image(s): Chest Image Reviewed: Yes I reviewed the patient's radiology results, Yes I reviewed the pat
[2020-08-20 17:31] LABS: Basophils % 0.5 % (0.1-2.0); Eosinophils # 0.1 K/mm3 (0.0-0.4); Eosinophils % 1.4 % (0.1-12.0); Hematocrit 41.1 % (37.0-47.0); Lymphocytes # 1.6 K/mm3 (0.7-4.5); Mean Corpuscular HGB Conc 34.1 g/dL (31.8-35.4); Mean Corpuscular Hemoglobin 30.1 pg (27.0-31.2); Mean Corpuscular Volume 88.1 fl (81-99); Mean Platelet Volume 8.8 fl (7.4-10.4); Monocytes # 0.3 K/mm3 (0.1-1.0); Monocytes % 3.3 % (1.7-9.3); Neutrophils # 5.6 K/mm3 (1.8-7.8); Neutrophils % 73.7 % (37.0-80.0); Platelet Count 207 K/mm3 (142-424); Red Blood Count 4.67 M/mm3 (4.20-5.40); Red Cell Distribution Width 13.4 % (11.5-17.5); White Blood Count 7.6 K/mm3 (4.8-10.8)
[2020-08-20 17:33] LABS: Alanine Aminotransferase 8 U/L (12-78); Albumin Level 4.7 g/dl (3.5-5.0); Albumin/Globulin Ratio 1.3 (1.1-1.8); Alkaline Phosphatase 51 U/L (38-126); Anion Gap 13.6 mEq/L (5-15); Aspartate Amino Transferase 23 U/L (14-36); Bilirubin,Total 0.6 mg/dl (0.2-1.3); Blood Urea Nitrogen 5 mg/dl (7-17); Calcium 9.4 mg/dl (8.4-10.2); Carbon Dioxide 24 mmol/L (22.0-30.0); Chloride 103 mmol/L (98-107); Creatinine Clearance Estimated 99 mL/min (50-200); Estimated Glomerular Filt Rate 80 ml/min (>60); GFR (African American) 97 ML/MIN (>60); Globulin 3.7 g/dL (1.3-3.2); Glucose 120 mg/dl (74-100); Potassium 3.6 mmoL/L (3.5-5.1); Sodium 137 mmol/L (136-145); Total Protein,Serum 8.4 g/dl (6.3-8.2)
[2020-08-20 17:46] LABS: Troponin I < 0.01 ng/ml (0.00-0.034)
[2020-08-20 20:40] LABS: Troponin I < 0.01 ng/ml (0.00-0.034)
== END 2020-08-20 20:53 | disposition home or self-care (01) ==
PROVIDERS: Emergency Provider Family Medicine; PCP Nurse Practitioner Family
DX: R07.9 Chest pain, unspecified (principal); E03.9 Hypothyroidism, unspecified; Z87.442 Personal history of urinary calculi; Z87.891 Personal history of nicotine dependence
CPT/HCPCS: 71045; 80053; 84484; 85025; 93005; 99282

== ENCOUNTER → 2020-08-22 08:19 | Outpatient (CLI) | payer BC, SELFPAY ==
--- NOTE | 2020-08-22 | CA_ITS ---
APPROVED REPORT Exam: Exercise Treadmill Technologist: Christine Marie, Ht: 5 ft 2 in Wt: 144 lbs BSA: 1.66 m2 HR: 68 bpm BP: 129/73 mmHg Indications: Chest pain Stress Test Details Test: Greg HR Resting HR: 103 bpm Max Heart Rate (APMHR): 181 bpm Max HR Achieved: 173 bpm Target HR (85% APMHR): 153 bpm % of APMHR: 95 Recovery HR: 128 bpm BP Resting BP: 129/73 mmHg Max BP: 160/80 mmHg Recovery BP: 120.0/60.0 mmHg ECG Resting ECG: NSR, PRWP Anteriorly Arrhythmia: None Clinical Reason for Termination: Fatigue Exercise duration: 10:34 min Highest Stage Achieved: Exercise capacity: 12.8 METs Stress ECG Conclusion 10:34 minutes on Greg protocol Max HR: 173 Max BP: 160/80 MET's: 12.8 Stopped due to SOA/Fatigue Symptoms: No CP Arrhythmias/Ectopy: None ST-T Changes: None Conclusion: Normal exercise treadmill stress test Electronically signed by : Adolfo Pantoja, 08/22/2020 14:35:58
--- NOTE | 2020-08-22 08:29 | XR_ITS ---
PROCEDURE: XR MULTIPLE SPINE 6+V CLINICAL INDICATION: SCOLIOSIS OF LUMBAR,CERVICALGIA,THORACIC PAIN COMPARISON: No exams were available for comparison FINDINGS: Cervical spine: Normal alignment. No acute fracture or dislocation. There is slight decrease in the C5-C6 disc space consistent with mild degenerative disc disease. No significant foraminal narrowing. No lytic or blastic change. Thoracic spine: Very minimal lower thoracic curvature convex right. There is mild degenerative disc disease in the midthoracic spine at T5-T6. No lytic or blastic change. No acute fracture. Lumbar spine: Minimal lumbar curvature convex left. No fracture or dislocation. No lytic or blastic change. The disc spaces are well preserved. The there is a 7 mm stone overlying the lower pole of the left kidney. Surgical clips are present in the pelvis. IMPRESSION: Mild degenerative changes of the cervical and thoracic spine. Left nephrolithiasis. Dictated by: Felipe Albarran MD 08/22/2020 09:13 Felipe Albarran MD in [place] 08/22/2020 09:13
== END ==
PROVIDERS: PCP Nurse Practitioner Family; Visit Provider Nurse Practitioner Family
DX: R07.9 Chest pain, unspecified (principal); M54.2 Cervicalgia; M54.6 Pain in thoracic spine; M41.9 Scoliosis, unspecified
CPT/HCPCS: 72084; 93017

== ENCOUNTER → 2020-09-06 09:27 | Outpatient (CLI) | payer BC, SELFPAY ==
[2020-09-06 11:08] LABS: Thyroid Stimulating Hormone 4.01 uIU/mL (0.465-4.68)
== END ==
PROVIDERS: Visit Provider Internal Medicine
DX: E03.8 Other specified hypothyroidism (principal); E06.3 Autoimmune thyroiditis
CPT/HCPCS: 36415; 84443

== ENCOUNTER → 2020-10-11 08:36 | Outpatient (CLI) | payer BC, SELFPAY ==
[2020-10-11 08:50] LABS: Basophils % 0.7 % (0.1-2.0); Eosinophils # 0.2 K/mm3 (0.0-0.4); Hematocrit 43.3 % (37.0-47.0); Hemoglobin 13.8 g/dL (12.2-16.2); Lymphocytes # 1.2 K/mm3 (0.7-4.5); Lymphocytes % 21.9 % (10-50); Mean Corpuscular HGB Conc 31.9 g/dL (31.8-35.4); Mean Corpuscular Hemoglobin 29.3 pg (27.0-31.2); Mean Corpuscular Volume 91.9 fl (81-99); Mean Platelet Volume 8.1 fl (7.4-10.4); Monocytes # 0.2 K/mm3 (0.1-1.0); Monocytes % 3.5 % (1.7-9.3); Neutrophils % 70.9 % (37.0-80.0); Platelet Count 251 K/mm3 (142-424); Red Blood Count 4.72 M/mm3 (4.20-5.40); Red Cell Distribution Width 12.7 % (11.5-17.5); White Blood Count 5.6 K/mm3 (4.8-10.8)
[2020-10-11 10:25] LABS: Chloride 100 mmol/L (98-107); Sodium 136 mmol/L (136-145)
[2020-10-11 10:26] LABS: Potassium 3.9 mmoL/L (3.5-5.1)
[2020-10-11 10:28] LABS: Alanine Aminotransferase 14 U/L (12-78); Albumin Level 4.9 g/dl (3.5-5.0); Albumin/Globulin Ratio 1.7 (1.1-1.8); Alkaline Phosphatase 54 U/L (38-126); Aspartate Amino Transferase 21 U/L (14-36); Bilirubin,Total 0.8 mg/dl (0.2-1.3); Blood Urea Nitrogen 7 mg/dl (7-17); Estimated Glomerular Filt Rate 62 ml/min (>60); GFR (African American) 75 ML/MIN (>60); Globulin 2.9 g/dL (1.3-3.2); Total Protein,Serum 7.8 g/dl (6.3-8.2)
[2020-10-11 10:29] LABS: Anion Gap 14.9 mEq/L (5-15); Calcium 9.5 mg/dl (8.4-10.2); Carbon Dioxide 25 mmol/L (22.0-30.0); Glucose 113 mg/dl (74-100)
== END ==
PROVIDERS: Visit Provider Nurse Practitioner Family
DX: L29.9 Pruritus, unspecified (principal); Z92.29 Personal history of other drug therapy
CPT/HCPCS: 36415; 80053; 85025

== ENCOUNTER 2020-11-02 09:22 | Emergency (ER) | payer BC, SELFPAY ==
[2020-11-02 09:25] VITALS: BP 144/99; PULSE 74; RESP 16; TEMP 36.9; O2SAT 99; BMI 25.0
--- NOTE | 2020-11-02 10:16 | HMH.EDUTC ---
[facility] [place] Clinical Impression: Sinusitis Qualifiers: Sinusitis location: unspecified location Chronicity: unspecified Qualified Code(s): J32.9 - Chronic sinusitis, unspecified Disposition: Home, Self-Care Condition on Discharge: Good Instructions: Sinusitis, DI for Sinusitis, Methylprednisolone, Amoxicillin and Clavulanic Acid Additional Instructions: *Monitor Temp, Over the counter Motrin or Tylenol as directed/as needed Tylenol every 4 hours and Motrin every 6 hours (as long as your family doctor has told you that you can take it) for fever or pain. and straight to ER if unable to lower temp less than 101.0 after medication givens *Warm fluids like tea with honey may help to soothe the throat and open up sinuses *Sleep elevated *Humidifier/Vaporizer *Flonase 2 sprays in each nostril daily but be aware that it may take 2-3 days before you notice improvement Take medication as prescribed Return if needed Follow up for re-evaluation of elevated blood pressure Follow up IMMEDIATELY for new or worsening symptoms or no Noticeable improvement over the next 48-72 hours. 911 for difficulty breathing or swallowing Prescriptions: Amoxicillin/Potassium Clav [Augmentin 875-125 Tablet] 1 tab PO Q12H 7 Days #14 tab Transmission Status: Pending to [facility] Fluticasone Propionate [Flonase 50mcg nasal spray 16gm] 1 spr NS DAILY #1 bottle Transmission Status: Pending to [facility] methylPREDNISolone [Medrol 4mg tab] 4 mg PO DIRECTED #21 tab Transmission Status: Pending to [facility] Referrals: Janna Gomez APRN [Primary Care Provider] - Time of Disposition: 10:21 Medical Decision Making - Klever Inquiry Pt receiving controlled substance: No Klever was queried for this patient: No Vital Signs: 11/02/20 09:25 11/02/20 10:20 Temperature 98.4 F 98.4 F Temperature Source Oral Pulse Rate 74 Pulse Rate [Right Brachial] 74 Respiratory Rate 16 16 Blood Pressure 144/99 H Blood Pressure [Right Arm] 144/99 H Blood Pressure Mean [Right Arm] 114 Blood Pressure Source [Right Arm] Automatic Cuff Blood Pressure Position [Right Arm] Sitting 02 Sat by Pulse Oximetry 99 Oxygen Delivery Method Room Air Medical Decision Narrative: Discussed transfer to the Ed For further evaluation and patient denies dizziness at this time and denies feeling of light headedness and patient declined transfer recommended follow up with PCP if these symptoms and follow up for re-evaluation of blood pressure [facility] H[place] - General Stated complaint: lightheaded,weakness Time Seen by Provider: 11/02/20 10:16 Mode of Arrival: Ambulatory Source of Information: Patient Limitations: No Limitations Description of Symptoms (Recalled from Triage Doc. by RN): PATIENT C/O LIGHT HEADED, HEADACHE, AND FACE PAIN ON AND OFF X 4 DAYS HEENT Symptoms (Recalled from RN notes): Yes Resp Symptoms (Recalled from RN notes): No Skin Symptoms (Recalled from RN notes): No MS Symptoms (Recalled from RN notes): No Functional Status (Recalled from RN notes): WNL - History of Present Illness Provider Complaint: Patient states that she has a history of sinus problems States that she has been having worseing of sinus pressure for the last 4 days State that she is tender under her eyes and at times when she moves quickly or looks up she feels a little woozy State that she is also having pressure like feeling in her ears and over all not feeling well States that she has been taking oliverio but not helped much - Related Data Home Medications Medication Instructions Recorded Confirmed Levothyroxine Sodium [Synthroid 88 mcg PO DAILY 07/06/19 11/02/20 88mcg (0.088mg) tablet] Previous Rx's Medication Instructions Recorded Amoxicillin/Potassium Clav 1 tab PO Q12H 7 Days #14 tab 11/02/20 [Augmentin 875-125 Tablet] Fluticasone Propionate [Flonase 1 spr NS DAILY #1 bottle 11/02/20 50mcg nasal spray 16gm] methylPR
[2020-11-02 10:20] VITALS: BP 144/99; PULSE 74; RESP 16; TEMP 36.9; O2SAT 99
== END 2020-11-02 10:32 | disposition home or self-care (01) ==
PROVIDERS: Emergency Provider Nurse Practitioner; PCP Nurse Practitioner Family
DX: J32.9 Chronic sinusitis, unspecified (principal); F33.1 Major depressive disorder, recurrent, moderate; Z87.442 Personal history of urinary calculi; Z79.899 Other long term (current) drug therapy
CPT/HCPCS: 99202; G0463

== ENCOUNTER 2020-11-05 14:15 | Observation (INO) | payer BC, SELFPAY ==
[2020-11-05] VITALS (18 sets, daily range): BP systolic 113–173; BP diastolic 70–93; PULSE 57–84; RESP 9–22; TEMP 36.5–36.9; O2SAT 97–100; BMI 25.6; BMI 24.3
--- NOTE | 2020-11-05 14:20 | ECG_ITS ---
APPROVED REPORT Exam: Resting ECG HR:69 bpm ECG Measurements Heart Rate 69 AXES IL 134 P 73 QRSd 86 QRS 32 QT 424 T 84 QTc 454 Conclusion Normal sinus rhythm Low voltage QRS Cannot rule out Anterior infarct, age undetermined Abnormal ECG Electronically signed by : Jeffery Anton, 11/07/2020 10:26:39
--- NOTE | 2020-11-05 14:25 | PC.NURSE ---
EKG t 14:20
--- NOTE | 2020-11-05 14:30 | HMH.EDGENADL ---
ED Disposition Clinical Impression: Tachycardia, Left arm pain Disposition: Admitted as Observation Condition on Discharge: Fair Referrals: Janna Gomez APRN [Primary Care Provider] - - Critical Care Critical Care Time: No Attestation: On 11/05/20, the high probability of a clinically significant, sudden or life threatening deterioration of the following system(s) required my full and direct attention, intervention and personal management. The time I documented below is in addition to time spent performing reported procedures but includes the following listed in this critical care notation. Medical Decision Making - Medical Records Medical records reviewed: Yes: I reviewed the patient's medical records. MR Comment: Recent stress test 08/22/2020, normal - Klever Inquiry Pt receiving controlled substance: No Vital Signs: 11/05/20 14:15 11/05/20 14:32 11/05/20 15:01 Temperature 97.8 F Temperature Source Oral Pulse Rate 74 70 Pulse Rate [Left Radial] 84 Respiratory Rate 18 9 L 16 Blood Pressure 126/74 128/78 Blood Pressure [Right Arm] 173/93 H Blood Pressure Mean Blood Pressure Mean [Right Arm] 119 Blood Pressure Source [Right Arm] Automatic Cuff Blood Pressure Position [Right Arm] Sitting 02 Sat by Pulse Oximetry 100 100 98 Oxygen Delivery Method Room Air 11/05/20 15:30 11/05/20 16:00 11/05/20 16:30 Temperature Temperature Source Pulse Rate 70 59 L 66 Pulse Rate [Left Radial] Respiratory Rate 16 22 Blood Pressure 125/75 121/70 113/76 Blood Pressure [Right Arm] Blood Pressure Mean 91 Blood Pressure Mean [Right Arm] Blood Pressure Source [Right Arm] Blood Pressure Position [Right Arm] 02 Sat by Pulse Oximetry 100 100 100 Oxygen Delivery Method 11/05/20 17:00 11/05/20 18:02 Temperature Temperature Source Pulse Rate 64 64 Pulse Rate [Left Radial] Respiratory Rate 15 18 Blood Pressure 120/78 145/81 H Blood Pressure [Right Arm] Blood Pressure Mean 88 Blood Pressure Mean [Right Arm] Blood Pressure Source [Right Arm] Blood Pressure Position [Right Arm] 02 Sat by Pulse Oximetry 100 100 Oxygen Delivery Method - Lab Data Lab Results 11/05/20 14:31: Troponin I < 0.01 11/05/20 14:31: Sodium 139, Potassium 3.2 L, Chloride 101, Carbon Dioxide 28, Anion Gap 13.2, BUN 5 L, Creatinine 0.80, Estimated Creat Clear 95, Estimated GFR 80, Est GFR ( Amer) 97, Glucose 98, Calcium 9.5 11/05/20 14:31: WBC 13.3 H, RBC 4.92, Hgb 14.8, Hct 42.9, MCV 87.1, MCH 30.2, MCHC 34.6, RDW 12.9, Plt Count 247, MPV 8.3, Neut % (Auto) 85.0 H, Lymph % (Auto) 10.7, Amador % (Auto) 3.9, Eos % (Auto) 0.2, Baso % (Auto) 0.3, Neut # (Auto) 11.3 H, Lymph # (Auto) 1.4, Amador # (Auto) 0.5, Eos # (Auto) 0.0, Baso # (Auto) 0.0, Total Counted 100, Neutrophils % (Manual) 80 H, Lymphocytes % (Manual) 11, Monocytes % (Manual) 8, Eosinophils % (Manual) 1, Platelet Estimate Normal, Rouleaux 1+ 11/05/20 17:08: Troponin I < 0.01 Result diagrams: 11/05/20 14:31 11/05/20 14:31 Orders (Tests/Meds): ORDERS Category Date Time Status Full Resp Panel w/COVID ([facility]) Routine Lab 11/05/20 18:57 Ordered Thyroid Panel Stat Lab 11/05/20 18:33 Ordered Troponin I Q3H Lab 11/05/20 20:45 Ordered UDS [Drug Screen,Urine] Stat Lab 11/05/20 19:05 Ordered - Radiology Data #1 Image(s): Chest Image Reviewed: Yes I have reviewed radiologist's interpretation PROCEDURE: XR CHEST 2V CLINICAL HISTORY: cp Chest pain COMPARISON: CR CXR2V XR chest 2V from 07/21/2017 CR XR CHEST 2V from 07/06/2019 CR XR CHEST PORTABLE from 08/20/2020 FINDINGS: The cardiomediastinal silhouette and pulmonary vascularity are within normal limits. The lungs are clear without infiltrates, suspicious nodules, or pleural effusions. Calcified granuloma is present in the left upper lobe. Mild thoracic curvature convex right. IMPRESSION: No acute findings. Dictated by
--- NOTE | 2020-11-05 14:42 | XR_ITS ---
PROCEDURE: XR CHEST 2V CLINICAL HISTORY: cp Chest pain COMPARISON: CR CXR2V XR chest 2V from 07/21/2017 CR XR CHEST 2V from 07/06/2019 CR XR CHEST PORTABLE from 08/20/2020 FINDINGS: The cardiomediastinal silhouette and pulmonary vascularity are within normal limits. The lungs are clear without infiltrates, suspicious nodules, or pleural effusions. Calcified granuloma is present in the left upper lobe. Mild thoracic curvature convex right. IMPRESSION: No acute findings. Dictated by: Felipe Albarran MD 11/05/2020 15:18 Felipe Albarran MD in [place] 11/05/2020 15:18
[2020-11-05 15:09] LABS: Basophils % 0.3 % (0.1-2.0); Eosinophils % 0.2 % (0.1-12.0); Hematocrit 42.9 % (37.0-47.0); Hemoglobin 14.8 g/dL (12.2-16.2); Lymphocytes # 1.4 K/mm3 (0.7-4.5); Lymphocytes % 10.7 % (10-50); Mean Corpuscular HGB Conc 34.6 g/dL (31.8-35.4); Mean Corpuscular Hemoglobin 30.2 pg (27.0-31.2); Mean Corpuscular Volume 87.1 fl (81-99); Mean Platelet Volume 8.3 fl (7.4-10.4); Monocytes # 0.5 K/mm3 (0.1-1.0); Monocytes % 3.9 % (1.7-9.3); Neutrophils # 11.3 K/mm3 (1.8-7.8); Platelet Count 247 K/mm3 (142-424); Red Blood Count 4.92 M/mm3 (4.20-5.40); Red Cell Distribution Width 12.9 % (11.5-17.5); White Blood Count 13.3 K/mm3 (4.8-10.8)
[2020-11-05 15:13] LABS: MANUAL DIFFERENTIAL MANUAL DIFFERENTIAL (MANUAL DIFF)
[2020-11-05 15:16] LABS: Anion Gap 13.2 mEq/L (5-15); Blood Urea Nitrogen 5 mg/dl (7-17); Calcium 9.5 mg/dl (8.4-10.2); Carbon Dioxide 28 mmol/L (22.0-30.0); Chloride 101 mmol/L (98-107); Creatinine Clearance Estimated 95 mL/min (50-200); Estimated Glomerular Filt Rate 80 ml/min (>60); GFR (African American) 97 ML/MIN (>60); Glucose 98 mg/dl (74-100); Potassium 3.2 mmoL/L (3.5-5.1); Sodium 139 mmol/L (136-145)
[2020-11-05 15:48] LABS: Troponin I < 0.01 ng/ml (0.00-0.034)
[2020-11-05 16:08] LABS: Eosinophils % 1 % (0-3); Lymphocytes % 11 % (10-50); Monocytes % 8 % (2-9); Neutrophils % 80 % (42-76); Platelet Estimate Normal; Total Cells Counted 100
[2020-11-05 16:10] LABS: Rouleaux 1+
--- NOTE | 2020-11-05 16:59 | PC.NURSE ---
pt going to ct
--- NOTE | 2020-11-05 18:15 | ECG_ITS ---
APPROVED REPORT Exam: Resting ECG HR:76 bpm ECG Measurements Heart Rate 76 AXES IN 134 P 77 QRSd 86 QRS 21 QT 380 T 75 QTc 427 Conclusion Normal sinus rhythm with sinus arrhythmia Possible Anterior infarct, age undetermined Abnormal ECG Electronically signed by : Jeffery Anton, 11/07/2020 10:25:09
--- NOTE | 2020-11-05 18:32 | PC.NURSE ---
PT states she was just lying in bed thinking about food and she felt as if her heart was going to beat out of her chest. media monitor shows pt hr is 140s-150s last for few minutes and then returning to normal 70s. Pt states that her heart still feels like it is going to jump out of her chest. Attempted to do EKG during this time but pt returned to normal before able to get the results. MD aware and observed the air sampling and monitoring at time of event of pt.
[2020-11-05 18:45] LABS: Troponin I < 0.01 ng/ml (0.00-0.034)
--- NOTE | 2020-11-05 19:00 | PC.NURSE ---
IN ROOM SPEAKING WITH PATIENT ABOUT PATIENT HEALTH ISSUES AND PATIENT LEAVING AMA. DR MCKINLEY DEEMS PATIENT OF SOUND MIND AND SAYS THAT SHE IS OK TO SIGN AMA PAPERS HERSELF.
--- NOTE | 2020-11-05 19:08 | PC.NURSE ---
THIS NURSE IN ROOM WITH AMA PAPER, AND PATIENT SIGNED THEM. PATIENT WAS AMBULATORY AND LEFT ER AT THIS TIME.
[2020-11-05 19:18] LABS: Adenovirus,PCR Not Detected (NotDetected); Bordetella Pertussis Not Detected (NotDetected); Chlamydophila Pneumoniae, PCR Not Detected (NotDetected); Coronavirus 19, PCR Not Detected (NotDetected); Coronavirus 229E Not Detected (NotDetected); Coronavirus NL63 Not Detected (NotDetected); Coronavirus OC43 Not Detected (NotDetected); Coronovirus HKU1,PCR Not Detected (NotDetected); Human Metapneumovirus Not Detected (NotDetected); Influenza A, PCR Not Detected (NotDetected); Influenza AH1, 2009 Not Detected (NotDetected); Influenza AH1, PCR Not Detected (NotDetected); Influenza AH3,PCR Not Detected (NotDetected); Influenza B, PCR Not Detected (NotDetected); Mycoplasma Pneumoniae, PCR Not Detected (NotDetected); Parainfluenza 1, PCR Not Detected (NotDetected); Parainfluenza 2, PCR Not Detected (NotDetected); Parainfluenza 3, PCR Not Detected (NotDetected); Parainfluenza 4, PCR Not Detected (NotDetected); Respiratory Syncytial Virus Not Detected (NotDetected); Rhinovirus/Enterovirus Not Detected (NotDetected)
[2020-11-05 19:51] LABS: Amphetamine/Metha Screen,Urine Negative ng/ml (<1000); Barbiturates Screen,Urine Negative ng/ml (<200); Benzodiazepines Screen,Urine Negative ng/ml (<200); Cannabinoid Screen,Urine Negative ng/ml (<50); Cocaine Screen,Urine Negative ng/ml (<300); Methadone Screen,Urine Negative ng/ml (<300); Opiate Screen,Urine Negative ng/ml (<300); Phencyclidine Screen,Urine Negative ng/ml (<25)
[2020-11-05 20:11] LABS: Free Thyroxine Index 2.4 ug/dL (5.93-13.13); T4 (Thyroxine) 8.1 ug/dl (5.53-11.0); Triiodothryronine (T3) Uptake 30 % (23.5-40.5)
[2020-11-05 20:22] LABS: Vitamin B12 < 159 pg/mL (239-931)
[2020-11-05 20:24] LABS: Thyroid Stimulating Hormone 1.59 uIU/mL (0.465-4.68)
[2020-11-05 21:19] LABS: Troponin I < 0.01 ng/ml (0.00-0.034)
--- NOTE | 2020-11-05 22:29 | PC.NURSE ---
patient up to floor via wheelchair.
[2020-11-06] VITALS: BP 132/64; PULSE 50; PULSE 62; RESP 17; TEMP 36.6; O2SAT 97
[2020-11-06 04:00] VITALS: BP 119/71; PULSE 50; PULSE 71; RESP 16; TEMP 36.7; O2SAT 98
[2020-11-06 05:49] VITALS: BMI 24.3
--- NOTE | 2020-11-06 05:56 | PC.NURSE ---
Pt has slept at intervals since arrival to floor. Has not c/o any discomfort to chest or tingling. VS are currently stable. Pt remains on RA. BS active. She remains on telemetry NSR to Sinus Bradycardia. Has not had any periods of tachycardia. While reviewing home medications, pt stated that she is currently being treated for a sinus infection. She is currently on methyprednisolone and an antibiotic. No other concerns at this time. Will continue to monitor.
--- NOTE | 2020-11-06 07:00 | CA_ITS ---
APPROVED REPORT EXAM: Comprehensive 2D, Doppler, and color-flow Echocardiogram Warehouse Receiving Clerk: Mandy Oden CRT Ht: 5 ft 2 in Wt: 140lbs BSA: 1.64 BP: 145/81 mmHg Indications: tachycardia, left arm pain 2D Dimensions LVOT 1.91 cm (M/F) 1.5-2.5 LA Volume 42.00 mL LA Volume Index 25.60 mL/m2 (M/F) 16-34 M-Mode Dimensions RVDd 3.46 cm (0.9-2.6) LA Diam 3.01 cm (1.9-4.0) LVDd 4.02 cm (3.5-5.7) Ao Diam 2.71 cm (2.0-3.7) LVDs 2.68 cm (3.5-5.7) IVSd 0.64 cm (0.6-1.1) PWd 1.11 cm (0.6-1.1) EF (Teich) 62.60% FS 33.30% EDV (Teich) 70.80 mL TAPSE 2.08 (<1.7) ESV (Teich) 26.50 mL LV Diastology E Decel Time 203.00 (160-240 msec) E/A Ratio 2.07 MED E' 9.80 (< 7 cm/sec) MED A' 8.70 cm/s E'/MED E' Ratio 8.43 (>14) LAT E' 13.60 (<10 cm/sec) LAT A' 7.20 cm/s E/LAT E' Ratio 6.07 (>14) Aortic Valve AO Peak GR. 5.50 mmHg Mitral Valve MV A Velocity 40.00 (40-130 cm/s) E/A Ratio 2.07 MV Decel. Time 203.00 (160-240 ms) Pulmonary Valve PV Peak Velocity 57.00 (50-150 cm/s) Tricuspid Valve TR P. Velocity 192.00 cm/s RAP Estimate 10.00 mmHg RVSP 24.80 mmHg Left Ventricle Left atrium is normal size, left ventricle is normal size, there is no concentric left ventricular hypertrophy, visually estimated ejection fraction 55% with no regional wall motion abnormality, diastolic parameters are within normal range. Right Ventricle Right atrium and right ventricle are normal size and contractility. Aortic Valve Aortic valve is grossly normal, there is no aortic stenosis or aortic insufficiency. Mitral Valve Mitral valve grossly normal, there is trace mitral regurgitation. Tricuspid Valve Tricuspid grossly normal, there is trace tricuspid regurgitation, tricuspid regurgitation jet velocity is inadequate for calculation of the right ventricular systolic pressure. Pulmonic Valve Pulmonic valve is poorly visualized. Great Vessels Aortic root is normal size. Pericardium No significant pericardial effusion noted. Conclusion 1. Normal left ventricular size, preserved left ventricular systolic function, visually estimated ejection fraction 55% with no regional wall motion abnormality, diastolic parameters are within normal range. 2. Trace mitral and tricuspid regurgitation. 3. No significant pericardial effusion noted. Electronically signed by : Adolfo Pantoja, 11/06/2020 15:43:25
--- NOTE | 2020-11-06 07:22 | HMH.PHAVTE ---
[facility] Pharmacy VTE Monitoring - Patient Demographics Admission date: 11/06/20 Report Date: 11/06/20 Time: 07:22 Allergies/Adverse Reactions: Patient Allergies No Known Allergies Allergy (Verified 10/08/20 12:15) Height: 1.57 m Weight: 59.931 kg Patient Problems: Current Active Problems Tachycardia (Acute) Left arm pain (Acute) - VTE Risk Labs: VTE Related Lab Results Hgb 14.8 g/dL (12.2-16.2) 11/05/20 14:31 Hct 42.9 % (37.0-47.0) 11/05/20 14:31 Plt Count 247 K/mm3 (142-424) 11/05/20 14:31 BUN 5 mg/dl (7-17) L 11/05/20 14:31 Creatinine 0.80 mg/dl (0.52-1.04) 11/05/20 14:31 Estimated Creat Clear 95 mL/min (50-200) 11/05/20 14:31 Was VTE Risk Assessment Performed: Yes VTE Score: 1 VTE Risk Level: Low Risk Clinical Trial Participant: No - Prophylaxis VTE Prophylaxis Ordered?: Yes Types of VTE Prophylaxis: TEDS Knee High
--- NOTE | 2020-11-06 07:25 | HMH.PHAINT ---
CLARIFIED HOME MEDICATION LIST USING LIST FROM [facility]
[2020-11-06 07:32] VITALS: BP 118/71; PULSE 68; RESP 17; TEMP 36.8; O2SAT 99
[2020-11-06 08:00] VITALS: PULSE 60
--- NOTE | 2020-11-06 08:29 | HMH.HPDC ---
General - General Admission date:: 11/05/20 Discharge date: 11/06/20 *Admission Date: 11/06/20 *Chief complaint: Racing heart *History of present illness: 40-year-old female with no significant medical history presented to the emergency department after episodes of racing heart at home. Patient had associated tingling in the left arm and jaw with these episodes of racing heart that were quite brief. In the emergency department patient's vital signs were normal until it was witnessed her heart rate ascend to approximately 150 bpm and then returned to normal. No intervention was needed an episode of tachycardia was brief. Patient had initial negative troponin. Patient had a stress test 2 months ago that was also unremarkable. Decision was made admit the patient for observation. There is no family history of cardiac arrhythmias Recently the patient has been treated for sinusitis with Medrol Dosepak, amoxicillin, Sharri. She has taken antihistamines in the past without incident. She has taken amoxicillin in the past without incident. She admits she is not very good at following through with completing courses of medicines but this time had taken the Medrol Dosepak to its entirety [facility] History I have reviewed the patient's past medical history: Yes Medical History: Reports:: Depression, Hypertension, Kidney Stones, Urinary Tract Infection Denies:: Cancer, Diabetes Mellitus Type 1, Diabetes Mellitus Type 2, MRSA, Seizures *Have you ever received a pneumonia vaccine?: No *Have you received a flu vaccine this season?: Yes Other Medical History: Reports: Hypothyroidism, Thyroid Disease Other Surgeries: Yes: Appendectomy, Hysterectomy-Partial Amputation: No Fractures: No - *Social History Smoking Status: Former smoker Tobacco Type: cigarettes # Packs/Day (cigarettes): 1 Alcohol Intake: never Alcohol Intake Frequency:: holidays/special occasions only Substance Use Type: denies use *Occupational Status:: employed Housing: house Household Members: children *Travel in the last 8 weeks: None - Psychiatric History Pschychiatric History:: Reports:: Depression Family Hx:: Cancer, Diabetes, Heart Attack, Hyperlipidemia, Hypertension, Thyroid Disorder Review of Systems - Constitutional Denies anorexia, Denies body ache(s), Denies chills, Denies lack of energy - Eyes Denies blurry vision - ENT Denies difficulty swallowing - *Cardiovascular Reports rapid, pounding, or irregular heartbeat, Reports radiating jaw, neck or arm pain, Denies chest pain, Denies shortness of breath - *Respiratory Denies chest congestion, Denies cough - *Gastrointestinal Denies belching - *Genitourinary Denies painful urination - *Musculoskeletal Denies abnormal walking - Integumentary/Breasts Denies hair loss - *Neurologic Reports tingling, Denies abnormal walking Exam Vital signs and Labs for Last 24 Hours: Temp Pulse Resp BP Pulse Ox 98.2 F 68 17 118/71 99 11/06/20 07:32 11/06/20 07:32 11/06/20 07:32 11/06/20 07:32 11/06/20 07:32 Laboratory Results - last 24 hr 11/05/20 14:31: Troponin I < 0.01 11/05/20 14:31: Sodium 139, Potassium 3.2 L, Chloride 101, Carbon Dioxide 28, Anion Gap 13.2, BUN 5 L, Creatinine 0.80, Estimated Creat Clear 95, Estimated GFR 80, Est GFR ( Amer) 97, Glucose 98, Calcium 9.5 11/05/20 14:31: WBC 13.3 H, RBC 4.92, Hgb 14.8, Hct 42.9, MCV 87.1, MCH 30.2, MCHC 34.6, RDW 12.9, Plt Count 247, MPV 8.3, Neut % (Auto) 85.0 H, Lymph % (Auto) 10.7, Coleman % (Auto) 3.9, Eos % (Auto) 0.2, Baso % (Auto) 0.3, Neut # (Auto) 11.3 H, Lymph # (Auto) 1.4, Coleman # (Auto) 0.5, Eos # (Auto) 0.0, Baso # (Auto) 0.0, Total Counted 100, Neutrophils % (Manual) 80 H, Lymphocytes % (Manual) 11, Monocytes % (Manual) 8, Eosinophils % (Manual) 1, Platelet Estimate Normal, Uriel 1+ 11/05/20 17:08: Troponin I < 0.01 11/05/20 17:08: Vitamin B12 < 159 L 11/05/20 18:48: TSH 1.59, Free T4 Index 2.4 L, Thyroxine (T4) 8.1, T3 Upt
== END 2020-11-06 10:18 | disposition home or self-care (01) ==
LOC: ER 19:15 → 2ND 19:26
PROVIDERS: Admitting Provider Internal Medicine Adolescent Medicine; Emergency Provider Emergency Medicine; PCP Nurse Practitioner Family; Visit Provider Family Medicine
DX: I47.1 Supraventricular tachycardia (principal); I10 Essential (primary) hypertension; E03.9 Hypothyroidism, unspecified; Z87.891 Personal history of nicotine dependence; E53.8 Deficiency of other specified B group vitamins
CPT/HCPCS: 71046; 80048; 80305; 82607; 84436; 84443; 84479; 84484; 85007; 85025; 87581; 87633; 87798; 93005; 93306; 99284; G0378

== ENCOUNTER 2020-11-22 09:01 | Emergency (ER) | payer BC, SELFPAY ==
[2020-11-22 09:02] VITALS: BP 126/76; PULSE 84; RESP 18; TEMP 37; O2SAT 99; BMI 25.2
--- NOTE | 2020-11-22 09:19 | HMH.EDUTC ---
[facility] [place] Clinical Impression: Tonsillitis Sinusitis Qualifiers: Sinusitis location: maxillary Chronicity: acute Recurrence: non-recurrent Qualified Code(s): J01.00 - Acute maxillary sinusitis, unspecified Disposition: Home, Self-Care Condition on Discharge: Good Instructions: DI for Sinusitis Additional Instructions: Rest, fluids. Follow up with PCP as needed. Prescriptions: Cefdinir [Omnicef 300mg Capsule] 300 mg PO BID #20 cap Transmission Status: Pending to [facility] predniSONE [Prednisone 20mg Tab] 20 mg PO BID 5 Days #10 tab Transmission Status: Pending to [facility] Referrals: Janna Gomez APRN [Primary Care Provider] - Time of Disposition: 09:24 Medical Decision Making - Klever Inquiry Pt receiving controlled substance: No [facility] [place] HPI - General Stated complaint: sore throat, congestion Time Seen by Provider: 11/22/20 09:19 - History of Present Illness Provider Complaint: Patient has been feeling poorly for 5-6 days. No fever. Has had headache, sinus pain, sore throat. Swabbed negative for strep 3 days ago at PCP. Throat has felt progressively worse. Feels swollen and tight and is losing her voice. Now has productive cough as well. No body aches or chills, no loss of taste or smell. Has been vaccinated against COVID19 and has no known exposure. Onset (ago): day(s) (6) Location: head Relieving factors: none Exacerbating factors: none Associated symptoms: denies other symptoms Treatments prior to arrival: none - Related Data Home Medications Medication Instructions Recorded Confirmed Levothyroxine Sodium [Synthroid 88 mcg PO DAILY 07/06/19 11/05/20 88mcg (0.088mg) tablet] Amoxicillin/Potassium Clav 1 tab PO BID 11/05/20 11/05/20 [Amox-Clav 875-125 mg Tablet] Fluticasone Propionate 1 spr NS DAILY 11/06/20 11/06/20 hydrOXYzine HCL [Hydroxyzine HCl] 25 mg PO TIDP PRN 11/06/20 11/06/20 Previous Rx's Medication Instructions Recorded Cyanocobalamin (Vitamin B-12) 1,000 mcg PO DAILY #30 tab 11/06/20 [Vitamin B-12 1000mcg Tablet] Propranolol HCl [Inderal LA] 60 mg PO DAILY #30 cap.sa.24h 11/06/20 Cefdinir [Omnicef 300mg Capsule] 300 mg PO BID #20 cap 11/22/20 predniSONE [Prednisone 20mg 20 mg PO BID 5 Days #10 tab 11/22/20 Tab] Allergies Allergy/AdvReac Type Severity Reaction Status Date / Time No Known Allergies Allergy Verified 10/08/20 12:15 [facility] History - Hepatitis A Screen Attestation statement:: This patient has been screened for Hepatitis A risk factors. I have reviewed the patient's past medical history: Yes Medical History: Reports:: Depression, Hypertension, Kidney Stones, Urinary Tract Infection Denies:: Cancer, Diabetes Mellitus Type 1, Diabetes Mellitus Type 2, MRSA, Seizures Other Medical History: Reports: Hypothyroidism, Thyroid Disease Other Surgeries: Yes: Appendectomy, Hysterectomy-Partial Amputation: No Fractures: No Comment: 2004-dx. lap. 2017-partial hys - Social History Smoking Status: Former smoker Tobacco Type: cigarettes # Packs/Day (cigarettes): 1 Alcohol Intake: never Alcohol Intake Frequency:: holidays/special occasions only Substance Use Type: denies use Occupational Status: employed Housing: house Household Members: children - Psychiatric History Pschychiatric History:: Reports:: Depression Family Hx:: Cancer, Diabetes, Heart Attack, Hyperlipidemia, Hypertension, Thyroid Disorder Comment: 1998-,M,7 pound 6 ounce, no comp. 2005-,M, 6 pound 12 ounce. no comp. 2007-, M, 7 pound 7 ounce,. 2011-, F, 8 pound ROS Obtained: Yes All systems reviewed & no additional complaints - ENT Ears, Nose, Mouth, and Throat: Denies otalgia, Reports nasal congestion, Reports pain with swallowing, Reports sinus pressure, Reports sore throat, Reports throat swelling - Respiratory Respiratory: Reports cough Physical Exam - General General appearance: alert, in no appare
[2020-11-22 09:40] VITALS: BP 126/76; PULSE 84; RESP 18; TEMP 37
== END 2020-11-22 09:35 | disposition home or self-care (01) ==
PROVIDERS: Emergency Provider Physician Assistant; PCP Nurse Practitioner Family
DX: J03.90 Acute tonsillitis, unspecified (principal); J01.00 Acute maxillary sinusitis, unspecified; I10 Essential (primary) hypertension; E03.9 Hypothyroidism, unspecified; Z87.442 Personal history of urinary calculi; Z87.891 Personal history of nicotine dependence; Z79.899 Other long term (current) drug therapy
CPT/HCPCS: 99202; G0463

== ENCOUNTER 2021-01-22 20:38 | Emergency (ER) | payer BC, SELFPAY ==
[2021-01-22 20:39] VITALS: BP 155/87; PULSE 86; RESP 12; TEMP 36.9; O2SAT 100; BMI 24.8
--- NOTE | 2021-01-22 20:59 | HMH.EDUTC ---
[facility] [place] Clinical Impression: Near syncope, Vitamin B12 deficiency, Tachycardia Disposition: Still a Patient Condition on Discharge: Fair Referrals: Janna Gomez APRN [Primary Care Provider] - Time of Disposition: 21:29 Medical Decision Making - Medical Records Medical records reviewed: No: I reviewed the patient's medical records. - Klever Inquiry Pt receiving controlled substance: No Vital Signs: 01/22/21 20:39 Temperature 98.5 F Temperature Source Oral Pulse Rate [Right] 86 Respiratory Rate 12 Blood Pressure [Right Arm] 155/87 H Blood Pressure Mean [Right Arm] 109 02 Sat by Pulse Oximetry 100 Medical Decision Narrative: She was transferred to the er for her near syncope and tachycardia since she was admitted for similar symptoms back in November. [facility] [place] - General Stated complaint: ANKITA Haji Time Seen by Provider: 01/22/21 20:59 - History of Present Illness Provider Complaint: She states that over the past 1 week approximately, she has been having spells that she feels very dizzy and feels like she is going to pass out. She states that she has felt her heart rate going up at times, but she has not had any of the heart racing that she had back in November that she was admitted over then. During that admission, it was discovered that her vitamin b12 level was less than 150. She went home on vitamin b12 replacement, but she states that she has finished this and she has appointment with hemotology next week to recheck this. - Related Data Home Medications Medication Instructions Recorded Confirmed Cyanocobalamin (Vitamin B-12) 1,000 units IM WEEKLY 11/22/20 11/22/20 [Cyanocobalamin 1,000mcg/mL Vial] Levothyroxine Sodium [Synthroid 88 mcg PO DAILY 11/22/20 11/22/20 88mcg (0.088mg) tablet] Allergies Allergy/AdvReac Type Severity Reaction Status Date / Time No Known Allergies Allergy Verified 10/08/20 12:15 [facility] History - Hepatitis A Screen Attestation statement:: This patient has been screened for Hepatitis A risk factors. I have reviewed the patient's past medical history: Yes Medical History: Reports:: Depression, Hypertension, Kidney Stones, Urinary Tract Infection Denies:: Cancer, Diabetes Mellitus Type 1, Diabetes Mellitus Type 2, MRSA, Seizures Other Medical History: Reports: Hypothyroidism, Thyroid Disease Other Surgeries: Yes: Appendectomy, Hysterectomy-Partial Amputation: No Fractures: No Comment: 2005-dx. lap. 2017-partial hys - Social History Smoking Status: Former smoker Tobacco Type: cigarettes # Packs/Day (cigarettes): 1 Alcohol Intake: never Alcohol Intake Frequency:: holidays/special occasions only Substance Use Type: denies use Occupational Status: employed Housing: house Household Members: children - Psychiatric History Pschychiatric History:: Reports:: Depression Family Hx:: Cancer, Diabetes, Heart Attack, Hyperlipidemia, Hypertension, Thyroid Disorder Comment: 1998-,M,7 pound 6 ounce, no comp. 2005-,M, 6 pound 12 ounce. no comp. 2007-, M, 7 pound 7 ounce,. 2011-, F, 8 pound ROS Obtained: Yes All systems reviewed & no additional complaints - Constitutional Constitutional: Denies chills, Denies fever(s), Reports poor appetite, Reports malaise - Eyes Eyes: Denies blurry vision, Denies change in vision, Denies diplopia, Denies eye discharge - ENT Ears, Nose, Mouth, and Throat: Denies dizziness, Denies otalgia, Denies sore throat - Cardiovascular Cardiovascular: Denies chest pain, Denies dyspnea, Reports irregular heart rhythm, Reports palpitations - Respiratory Respiratory: Denies chest congestion, Denies cough, Denies stridor, Denies wheezing - Gastrointestinal Gastrointestingal: Reports: nausea. Denies: abdominal pain, diarrhea, vomiting - Genitourinary Female Genitourinary: Denies dysuria, Denies urinary frequency, Denies urinary incontinence, Denies urinary hesitancy, Denies urinary urgency - Musculo
--- NOTE | 2021-01-22 21:33 | ECG_ITS ---
APPROVED REPORT Exam: Resting ECG HR:65 bpm ECG Measurements Heart Rate 65 AXES IL 130 P 68 QRSd 80 QRS 4 QT 434 T 70 QTc 451 Conclusion Normal sinus rhythm Low voltage QRS Nonspecific ST abnormality Abnormal ECG Electronically signed by : Jeffery Anton MD 01/23/2021 12:04:04
[2021-01-22 21:40] VITALS: BP 144/90; PULSE 76; RESP 18; TEMP 36.9; O2SAT 98; BMI 24.8
[2021-01-22 22:00] VITALS: BP 124/79; PULSE 89; O2SAT 100
[2021-01-22 22:30] VITALS: BP 114/69; PULSE 63; O2SAT 100
[2021-01-22 22:32] LABS: Basophils % 0.5 % (0.1-2.0); Eosinophils # 0.1 K/mm3 (0.0-0.4); Eosinophils % 0.7 % (0.1-12.0); Hematocrit 37.7 % (37.0-47.0); Lymphocytes # 1.4 K/mm3 (0.7-4.5); Lymphocytes % 15.7 % (10-50); Mean Corpuscular HGB Conc 34.5 g/dL (31.8-35.4); Mean Corpuscular Hemoglobin 29.9 pg (27.0-31.2); Mean Corpuscular Volume 86.6 fl (81-99); Mean Platelet Volume 8.1 fl (7.4-10.4); Monocytes # 0.3 K/mm3 (0.1-1.0); Monocytes % 3.6 % (1.7-9.3); Neutrophils % 79.4 % (37.0-80.0); Platelet Count 190 K/mm3 (142-424); Red Blood Count 4.36 M/mm3 (4.20-5.40); Red Cell Distribution Width 13.2 % (11.5-17.5); White Blood Count 8.8 K/mm3 (4.8-10.8)
[2021-01-22 22:37] LABS: Alanine Aminotransferase 6 U/L (12-78); Albumin Level 4.4 g/dl (3.5-5.0); Albumin/Globulin Ratio 1.5 (1.1-1.8); Alkaline Phosphatase 54 U/L (38-126); Anion Gap 12.4 mEq/L (5-15); Aspartate Amino Transferase 16 U/L (14-36); Bilirubin,Total 0.7 mg/dl (0.2-1.3); Blood Urea Nitrogen 5 mg/dl (7-17); Calcium 8.6 mg/dl (8.4-10.2); Carbon Dioxide 26 mmol/L (22.0-30.0); Chloride 104 mmol/L (98-107); Creatinine Clearance Estimated 123 mL/min (50-200); Estimated Glomerular Filt Rate 111 ml/min (>60); GFR (African American) 135 ML/MIN (>60); Globulin 2.9 g/dL (1.3-3.2); Glucose 99 mg/dl (74-100); Potassium 3.4 mmoL/L (3.5-5.1); Sodium 139 mmol/L (136-145); Total Protein,Serum 7.3 g/dl (6.3-8.2)
[2021-01-22 22:42] LABS: C-Reactive Protein 1.4 mg/L (0-4)
[2021-01-22 22:45] VITALS: PULSE 145; O2SAT 100
[2021-01-22 22:56] LABS: Procalcitonin 0.037 ng/mL (0.0-2.0); T4 (Thyroxine) 18.6 ug/dl (5.53-11.0)
[2021-01-22 23:00] VITALS: BP 117/69; PULSE 109; O2SAT 100
[2021-01-22 23:05] LABS: Erythrocyte Sedimentation Rate 23 mm/hr (0-20)
[2021-01-22 23:10] LABS: Thyroid Stimulating Hormone 0.81 uIU/mL (0.465-4.68)
--- NOTE | 2021-01-22 23:17 | ECG_ITS ---
APPROVED REPORT Exam: Resting ECG HR:85 bpm ECG Measurements Heart Rate 85 AXES ID 142 P 68 QRSd 82 QRS -3 QT 420 T 73 QTc 499 Conclusion Normal sinus rhythm Low voltage QRS Nonspecific ST and T wave abnormality Prolonged QT Abnormal ECG Electronically signed by : Jeffery Anton MD 01/23/2021 12:02:27
[2021-01-22 23:28] LABS: Vitamin B12 407 pg/mL (239-931)
--- NOTE | 2021-01-22 23:29 | PC.NURSE ---
Pt HR increased to 140's Dr Welch notified, EKG obtained and Lopressor 2.5mg given IV.
--- NOTE | 2021-01-22 23:35 | HMH.EDDIZZ ---
ED Disposition Clinical Impression: Near syncope, Vitamin B12 deficiency, Tachycardia, Hyperthyroidism Disposition: Home, Self-Care Condition on Discharge: Good Instructions: DI for Tachycardia Additional Instructions: call pcp for follow up in am Referrals: Janna Gomez APRN [Primary Care Provider] - - Critical Care Critical Care Time: No Attestation: On 01/22/21, the high probability of a clinically significant, sudden or life threatening deterioration of the following system(s) required my full and direct attention, intervention and personal management. The time I documented below is in addition to time spent performing reported procedures but includes the following listed in this critical care notation. Medical Decision Making - Medical Records Medical records reviewed: Yes: I reviewed the patient's medical records. - Klever Inquiry Pt receiving controlled substance: No Vital Signs: 01/22/21 20:39 01/22/21 21:40 Temperature 98.5 F 98.4 F Temperature Source Oral Oral Pulse Rate [Right] 86 76 Respiratory Rate 12 18 Blood Pressure [Right Arm] 155/87 H 144/90 H Blood Pressure Mean [Right Arm] 109 108 Blood Pressure Source [Right Arm] Automatic Cuff Blood Pressure Position [Right Arm] Sitting 02 Sat by Pulse Oximetry 100 98 Oxygen Delivery Method Room Air - Lab Data Lab results reviewed: Yes: I reviewed the patient's lab results. Lab Results 01/22/21 22:15: WBC 8.8, RBC 4.36, Hgb 13.0, Hct 37.7, MCV 86.6, MCH 29.9, MCHC 34.5, RDW 13.2, Plt Count 190, MPV 8.1, Neut % (Auto) 79.4, Lymph % (Auto) 15.7, [place] % (Auto) 3.6, Eos % (Auto) 0.7, Baso % (Auto) 0.5, Neut # (Auto) 7.0, Lymph # (Auto) 1.4, [place] # (Auto) 0.3, Eos # (Auto) 0.1, Baso # (Auto) 0.0, ESR 23 H 01/22/21 22:15: Sodium 139, Potassium 3.4 L, Chloride 104, Carbon Dioxide 26, Anion Gap 12.4, BUN 5 L, Creatinine 0.60, Estimated Creat Clear 123, Estimated GFR 111, Est GFR ( Amer) 135, Glucose 99, Calcium 8.6, Total Bilirubin 0.7, AST 16, ALT 6 L, Alkaline Phosphatase 54, C-Reactive Protein 1.4, Total Protein 7.3, Albumin 4.4, Globulin 2.9, Albumin/Globulin Ratio 1.5, Vitamin B12 407, Procalcitonin 0.037, TSH 0.81, Thyroxine (T4) 18.6 H Result diagrams: 01/22/21 22:15 01/22/21 22:15 Orders (Tests/Meds): ED MEDICATIONS Generic Name Dose Route Start Last Admin Trade Name Freq PRN Reason Stop Dose Admin Sodium Chloride 1,000 mls @ 999 mls/hr 01/22/21 22:00 01/22/21 22:33 Sod Chlor 0.9% 1000ml Bag IV 01/22/21 23:00 999 mls/hr .Q1H1M JAKE Administration Discontinued Medications Generic Name Dose Route Start Last Admin Trade Name Freq PRN Reason Stop Dose Admin Metoprolol Tartrate 2.5 mg 01/22/21 23:15 01/22/21 23:16 Metoprolol Tartrate 5mg/5ml Vial IV 01/22/21 23:16 2.5 mg ONCE ONE Administration ORDERS Category Date Time Status TgAb+Thyroglobulin,SALENA or MAYURI Stat Lab 01/22/21 22:15 Received - ECG Data Tracing #1 Normal Sinus Rhythm: Yes Ischemic changes: non-specific ST-T wave changes Tracing #2 Normal Sinus Rhythm: Yes Ischemic changes: non-specific ST-T wave changes Medical Decision Narrative: increased thyroid - and occ svt -will need to call pcp in am Dizzy HPI - General Stated Complaint: Shakey, SOB Time Seen by Provider: 01/22/21 20:59 Mode of Arrival: Ambulatory Source of Information: Patient, Medical Record Limitations: No Limitations Description of Symptoms (Recalled from ER Triage Doc. by RN): Pt c/o Shakey, SOA, Light Headed and Tired for the last couple days. Pt has HX of Pernicious Anemia and Hoshimoto Hypothyroidism. - History of Present Illness HPI Narrative: pt with shakey and weak at timed with hx of thyroid dis and low b12 - no covid-19 and no fever MD complaint: lightheadedness Onset (ago): day(s) Timing: gradual onset Description: lightheadedness History of similar episodes: Yes History of trauma: No Severity: moderate Associated
[2021-01-22 23:43] LABS: Microscopic, Urine URINE MICROSCOPIC (MICROSCOPIC)
[2021-01-22 23:49] LABS: Appearance,Urine CLEAR (Clear); Bilirubin,Urine Negative (Negative); Blood, Urine Negative (Negative); Color,Urine STRAW (Yellow); Glucose,Urine (UA) Negative (Negative); Ketones,Urine Negative (Negative); Leukocyte Esterase,Urine Negative (Negative); Nitrate,Urine Negative (Negative); PH,Urine 6.5 (5.0-8.5); Protein,Urine Negative (Negative); Specific Gravity, Urine <= 1.005 (1.005-1.030); Urobilinogen,Urine 0.2 EU/dl (0.2)
[2021-01-22 23:55] LABS: WBC,Urine Occasional #/hpf (0-3)
[2021-01-22 23:56] LABS: Bacteria,Urine Trace /lpf
[2021-01-23 00:19] VITALS: BP 117/73; PULSE 88; RESP 16; TEMP 36.7; O2SAT 100
[2021-01-23 01:27] LABS: Free T4 (Free Thyroxine) 2.19 ng/dl (0.78-2.19)
[2021-02-06 13:34] LABS: Thyroglobulin Level 16.8 IU/mL (0.0-0.9); Thyroglobulin RIA CHARGE YES; Thyroglobulin by RIA 38 ng/mL (.)
== END 2021-01-23 00:23 | disposition home or self-care (01) ==
LOC: UTC 21:24 → ER 21:30
PROVIDERS: Emergency Provider Emergency Medicine; PCP Nurse Practitioner Family
DX: R55 Syncope and collapse (principal); E53.8 Deficiency of other specified B group vitamins; R00.0 Tachycardia, unspecified; I10 Essential (primary) hypertension; F33.1 Major depressive disorder, recurrent, moderate; E03.9 Hypothyroidism, unspecified; Z20.822 Contact with and (suspected) exposure to COVID-19; Z87.891 Personal history of nicotine dependence; Z79.899 Other long term (current) drug therapy
CPT/HCPCS: 80053; 81001; 82607; 84145; 84436; 84439; 84443; 84480; 85025; 85651; 86140; 86800; 93005; 93225; 93226; 96365; 96375; 99283; U0003

== ENCOUNTER 2021-01-29 14:03 | Outpatient (CLI) | payer BC, SELFPAY ==
[2021-01-29 14:26] VITALS: BP 136/80; PULSE 71; RESP 18; TEMP 35.9; O2SAT 99
[2021-01-29 14:40] VITALS: BP 136/80; PULSE 71; RESP 18; TEMP 35.9; O2SAT 99
== END 2021-01-29 14:40 | disposition home or self-care (01) ==
LOC: INF 14:05
PROVIDERS: PCP Nurse Practitioner Family; Visit Provider Internal Medicine Medical Oncology
DX: D64.9 Anemia, unspecified (principal); E53.8 Deficiency of other specified B group vitamins
CPT/HCPCS: 96372

== ENCOUNTER → 2021-02-02 10:44 | Outpatient (POV) | payer BC, SELFPAY | PROVIDERS: Visit Provider Nurse Practitioner Family | DX: Z00.00 Encounter for general adult medical examination without abnormal findings (principal) ==

== ENCOUNTER 2021-02-04 10:28 | Outpatient (CLI) | payer BC, SELFPAY ==
--- NOTE | 2021-02-04 10:31 | XR_ITS ---
PROCEDURE: XR RIBS LT MIN 3V W CXR1V CLINICAL INDICATION: RIB PAIN ON LT SIDE, LUMP IN CHEST COMPARISON: CR XR CHEST 2V from 07/06/2019 CR XR CHEST PORTABLE from 08/20/2020 CR XR CHEST 2V from 11/05/2020 FINDINGS: Multiple views of the left ribs show no obvious fracture. No lytic or blastic change. Consider follow-up in 7-[address] with 3D reformats if pain persists Frontal view of the chest shows no acute finding. There is mild lumbar scoliosis convex left IMPRESSION: No acute findings. Dictated by: Felipe Albarran MD 02/04/2021 15:23 Felipe Albarran MD in [place] 02/04/2021 15:23
[2021-02-04 10:50] VITALS: BP 128/84; PULSE 77; RESP 18; TEMP 36.7; O2SAT 100
== END 2021-02-04 11:04 | disposition home or self-care (01) ==
LOC: INF 10:28
PROVIDERS: PCP Nurse Practitioner Family; Visit Provider Internal Medicine Medical Oncology
DX: R07.81 Pleurodynia (principal); R22.2 Localized swelling, mass and lump, trunk; E53.8 Deficiency of other specified B group vitamins
CPT/HCPCS: 71101; 96372

== ENCOUNTER 2021-02-11 10:51 | Outpatient (CLI) | payer BC, SELFPAY ==
[2021-02-11 11:07] VITALS: BP 131/85; PULSE 79; RESP 17; TEMP 36.4; O2SAT 100
== END 2021-02-11 11:10 | disposition home or self-care (01) ==
LOC: INF 10:52
PROVIDERS: PCP Nurse Practitioner Family; Visit Provider Internal Medicine Medical Oncology
DX: D64.9 Anemia, unspecified (principal); D53.8 Other specified nutritional anemias
CPT/HCPCS: 96372

== ENCOUNTER 2021-02-20 10:56 | Outpatient (CLI) | payer BC, SELFPAY ==
[2021-02-20 11:06] VITALS: BP 113/75; PULSE 65; RESP 18; O2SAT 99
== END 2021-02-20 11:06 | disposition home or self-care (01) ==
LOC: INF 10:57
PROVIDERS: PCP Nurse Practitioner Family; Visit Provider Internal Medicine Medical Oncology
DX: D64.9 Anemia, unspecified (principal); E53.8 Deficiency of other specified B group vitamins
CPT/HCPCS: 96372

== ENCOUNTER → 2021-02-26 16:03 | Outpatient (CLI) | payer BC, SELFPAY | PROVIDERS: Visit Provider Nurse Practitioner | DX: Z20.822 Contact with and (suspected) exposure to COVID-19 (principal) | CPT/HCPCS: C9803; U0003; U0005 ==

== ENCOUNTER 2021-02-28 11:08 | Emergency (ER) | payer BC, SELFPAY ==
[2021-02-28 12:20] VITALS: BP 125/83; PULSE 76; RESP 18; TEMP 36.7; O2SAT 100; BMI 23.0
--- NOTE | 2021-02-28 13:01 | HMH.EDUTC ---
[facility] [place] Dis[place] Clinical Impression: Sinusitis Disposition: Home, Self-Care Condition on Discharge: Good Instructions: DI for Sinusitis Prescriptions: Amoxicillin/Potassium Clav [Augmentin 875-125 Tablet] 1 tab PO Q12H 10 Days #20 tab Transmission Status: Pending to [id number] predniSONE [Deltasone 10mg tablet] 10 mg PO BID 3 Days #6 tab Transmission Status: Pending to [facility] Referrals: Janna Gomez APRN [Primary Care Provider] - Time of Disposition: 13:09 Medical Decision Making - Klever Inquiry Pt receiving controlled substance: No Vital Signs: 02/28/21 12:20 Temperature 98.0 F Temperature Source Oral Pulse Rate [Right Brachial] 76 Respiratory Rate 18 Blood Pressure [Right Arm] 125/83 Blood Pressure Mean [Right Arm] 97 Blood Pressure Source [Right Arm] Automatic Cuff Blood Pressure Position [Right Arm] Sitting 02 Sat by Pulse Oximetry 100 Oxygen Delivery Method Room Air [facility] [place] HPI - General Stated complaint: chest congestion, ear ache, bloody cough Time Seen by Provider: 02/28/21 13:01 Mode of Arrival: Ambulatory Source of Information: Patient Limitations: No Limitations Description of Symptoms (Recalled from Triage Doc. by RN): PATIENT C/O CHEST CONGESTION AND COUGH. WAS GIVEN MEDICATION ON TUESDAY BUT DOES NOT FEEL BETTER HEENT Symptoms (Recalled from RN notes): Yes Resp Symptoms (Recalled from RN notes): Yes Skin Symptoms (Recalled from RN notes): No MS Symptoms (Recalled from RN notes): No Functional Status (Recalled from RN notes): WNL - History of Present Illness Provider Complaint: Patient has bilateral ear pain, congestion, cough. Saw PCP 6 days ago. Given clarithromycin. It is causing her heart to race and muscle pain. She isn't feeling much better. COVID test was negative. Onset (ago): day(s) (6) Location: chest Relieving factors: none Exacerbating factors: none Treatments prior to arrival: none - Related Data Home Medications Medication Instructions Recorded Confirmed levothyroxine 75 mcg tablet 75 mcg PO DAILY tab 01/29/21 02/12/21 Previous Rx's Medication Instructions Recorded Amoxicillin/Potassium Clav 1 tab PO Q12H 10 Days #20 tab 02/28/21 [Augmentin 875-125 Tablet] predniSONE [Deltasone 10mg tablet] 10 mg PO BID 3 Days #6 tab 02/28/21 Allergies Allergy/AdvReac Type Severity Reaction Status Date / Time No Known Allergies Allergy Verified 02/12/21 08:45 - Worker's Comp Is this a Worker's Comp case?: No [facility] History - Hepatitis A Screen Drug use history?: No High risk sexual behaviors?: No History of sexually transmitted infection?: No Currently employed?: No Childcare worker?: No Do you have indoor plumbing?: Yes Do you have electricity?: Yes Attestation statement:: This patient has been screened for Hepatitis A risk factors. I have reviewed the patient's past medical history: Yes Medical History: Reports:: Depression, Hypertension, Kidney Stones, Urinary Tract Infection Denies:: Cancer, Diabetes Mellitus Type 1, Diabetes Mellitus Type 2, MRSA, Seizures Other Medical History: Reports: Anemia, Hypothyroidism, Thyroid Disease Other Surgeries: Yes: Appendectomy, Hysterectomy-Partial Amputation: No Fractures: No Comment: 2004-dx. lap. 2017-partial hys - Social History Smoking Status: Never smoker Tobacco Type: cigarettes # Packs/Day (cigarettes): 1 Alcohol Intake: never Alcohol Intake Frequency:: holidays/special occasions only Substance Use Type: denies use Occupational Status: employed, unemployed Housing: house Household Members: family - Psychiatric History Pschychiatric History:: Reports:: Depression Family Hx:: Diabetes, Thyroid Disorder Comment: 1998-,M,7 pound 6 ounce, no comp. 2005-,M, 6 pound 12 ounce. no comp. 2007-, M, 7 pound 7 ounce,. 2011-, F, 8 pound ROS Obtained: Yes All systems reviewed & no additional complaints - Constitutional Constitutional: Reports body
[2021-02-28 13:12] VITALS: BP 125/83; PULSE 76; RESP 18; TEMP 36.7; O2SAT 100
== END 2021-02-28 13:14 | disposition home or self-care (01) ==
PROVIDERS: Emergency Provider Physician Assistant; PCP Nurse Practitioner Family
DX: J01.00 Acute maxillary sinusitis, unspecified (principal); I10 Essential (primary) hypertension; F33.1 Major depressive disorder, recurrent, moderate; E03.9 Hypothyroidism, unspecified; Z20.822 Contact with and (suspected) exposure to COVID-19
CPT/HCPCS: 99202; G0463

== ENCOUNTER → 2021-03-02 14:39 | Outpatient (CLI) | payer BC, SELFPAY ==
[2021-03-02 15:06] LABS: Basophils # 0.1 K/mm3 (0-0.2); Basophils % 0.6 % (0.1-2.0); Eosinophils # 0.1 K/mm3 (0.0-0.4); Eosinophils % 1.4 % (0.1-12.0); Hematocrit 41.9 % (37.0-47.0); Hemoglobin 14.4 g/dL (12.2-16.2); Lymphocytes # 1.5 K/mm3 (0.7-4.5); Lymphocytes % 17.8 % (10-50); Mean Corpuscular HGB Conc 34.3 g/dL (31.8-35.4); Mean Corpuscular Hemoglobin 30.9 pg (27.0-31.2); Mean Corpuscular Volume 90.3 fl (81-99); Monocytes # 0.3 K/mm3 (0.1-1.0); Monocytes % 3.3 % (1.7-9.3); Neutrophils # 6.4 K/mm3 (1.8-7.8); Platelet Count 255 K/mm3 (142-424); Red Blood Count 4.65 M/mm3 (4.20-5.40); Red Cell Distribution Width 13.1 % (11.5-17.5); White Blood Count 8.3 K/mm3 (4.8-10.8)
[2021-03-02 15:48] LABS: Chloride 104 mmol/L (98-107); Potassium 3.3 mmoL/L (3.5-5.1); Sodium 140 mmol/L (136-145)
[2021-03-02 15:51] LABS: Alanine Aminotransferase 9 U/L (12-78); Albumin Level 4.6 g/dl (3.5-5.0); Albumin/Globulin Ratio 1.6 (1.1-1.8); Alkaline Phosphatase 58 U/L (38-126); Anion Gap 14.3 mEq/L (5-15); Aspartate Amino Transferase 17 U/L (14-36); Bilirubin,Total 0.7 mg/dl (0.2-1.3); Blood Urea Nitrogen 3 mg/dl (7-17); Calcium 9.4 mg/dl (8.4-10.2); Carbon Dioxide 25 mmol/L (22.0-30.0); Estimated Glomerular Filt Rate 93 ml/min (>60); GFR (African American) 112 ML/MIN (>60); Globulin 2.9 g/dL (1.3-3.2); Glucose 98 mg/dl (74-100); Total Protein,Serum 7.5 g/dl (6.3-8.2)
--- NOTE | 2021-03-02 15:52 | MM_ITS ---
PROCEDURE: MM DIG SCREENING MAMM BI W/CAD Digital Breast Tomosynthesis Included CLINICAL INDICATION: screening xmg There is a history of breast cancer in the patient's maternal grandmother. COMPARISON: This is a baseline exam, patient without complaints TECHNIQUE: Standard CC and MLO images and 3D Tomosynthesis was obtained. R2 CAD reviewed. FINDINGS: There is a diffusely dense and heterogenic parenchymal pattern somewhat lessening the sensitivity of mammography. There are no CAD markings. Solitario synthesis images are most helpful in this type of dense breast parenchyma. There is no suspicious lesion and no suspicious microcalcifications. IMPRESSION: Dense parenchymal pattern with no suspicious lesions seen BI-RAD Category: 1 Negative FOLLOW-UP: 1YR 1 Year Follow-up (A letter has been sent to the patient regarding results of the study.) Dictated by: Dr. Gabino Rollins MD 03/12/2021 14:26 Dr. Gabino Rollins MD in [place] 03/12/2021 14:26
[2021-03-02 17:03] LABS: Vitamin B12 749 pg/mL (239-931)
== END ==
PROVIDERS: Internal Medicine Medical Oncology; PCP Nurse Practitioner Family; Visit Provider Nurse Practitioner Obstetrics & Gynecology
DX: Z12.31 Encounter for screening mammogram for malignant neoplasm of breast (principal)
CPT/HCPCS: 36415; 77063; 77067; 80053; 82607; 85025

== ENCOUNTER 2021-03-04 11:09 | Outpatient (CLI) | payer BC, SELFPAY ==
[2021-03-04 11:36] VITALS: BP 168/76; PULSE 78; RESP 18; TEMP 36.7; O2SAT 99
== END 2021-03-04 11:37 | disposition home or self-care (01) ==
LOC: INF 11:10
PROVIDERS: PCP Nurse Practitioner Family; Visit Provider Internal Medicine Medical Oncology
DX: D64.9 Anemia, unspecified (principal); E53.8 Deficiency of other specified B group vitamins
CPT/HCPCS: 96372

== ENCOUNTER 2021-03-18 11:29 | Outpatient (CLI) | payer BC, SELFPAY ==
[2021-03-18 11:40] VITALS: BP 113/62; PULSE 62; RESP 18; TEMP 36.4; O2SAT 100
== END 2021-03-18 11:53 | disposition home or self-care (01) ==
LOC: INF 11:30
PROVIDERS: PCP Nurse Practitioner Family; Visit Provider Internal Medicine Medical Oncology
DX: E53.8 Deficiency of other specified B group vitamins (principal)
CPT/HCPCS: 96372

== ENCOUNTER 2021-04-06 10:58 | Outpatient (CLI) | payer BC, SELFPAY ==
[2021-04-06 11:08] VITALS: BP 134/84; PULSE 71; RESP 18; O2SAT 100
== END 2021-04-06 11:08 | disposition home or self-care (01) ==
LOC: INF 10:58
PROVIDERS: PCP Nurse Practitioner Family; Visit Provider Internal Medicine Medical Oncology
DX: E53.8 Deficiency of other specified B group vitamins (principal)
CPT/HCPCS: 96372

== ENCOUNTER 2021-04-09 07:52 | Emergency (ER) | payer BC, SELFPAY ==
[2021-04-09 07:54] VITALS: BP 155/106; PULSE 97; RESP 18; TEMP 36.9; O2SAT 100; BMI 22.4
--- NOTE | 2021-04-09 08:13 | HMH.EDGENADL ---
ED Disposition Clinical Impression: Diarrhea Qualifiers: Diarrhea type: presumed infectious Qualified Code(s): R19.7 - Diarrhea, unspecified Disposition: Home, Self-Care Condition on Discharge: Fair Additional Instructions: Commend continue to follow with primary care physician, fluids as much as you are able. Return to emergency department if you have new or concerning symptoms, if you begin having bloody bowel movements, if you are unable to keep anything down or if you do not believe you are drinking enough to keep up with your output. Prescriptions: Ondansetron [Zofran 4mg ODT] 4 mg PO BIDP PRN #10 tab PRN Reason: Nausea Transmission Status: Pending to [facility] Referrals: Janna Gomez APRN [Primary Care Provider] - - Critical Care Critical Care Time: No Attestation: On 04/09/21, the high probability of a clinically significant, sudden or life threatening deterioration of the following system(s) required my full and direct attention, intervention and personal management. The time I documented below is in addition to time spent performing reported procedures but includes the following listed in this critical care notation. Medical Decision Making - Medical Records Medical records reviewed: Yes: I reviewed the patient's medical records. - Klever Inquiry Pt receiving controlled substance: No Vital Signs: 04/09/21 07:54 Temperature 98.4 F Temperature Source Oral Pulse Rate [Left Radial] 97 H Respiratory Rate 18 Blood Pressure [Right Arm] 155/106 H Blood Pressure Mean [Right Arm] 122 Blood Pressure Source [Right Arm] Automatic Cuff Blood Pressure Position [Right Arm] Sitting 02 Sat by Pulse Oximetry 100 Oxygen Delivery Method Room Air - Lab Data Lab Results 04/09/21 08:09: WBC 7.4, RBC 5.01, Hgb 15.4, Hct 45.7, MCV 91.2, MCH 30.8, MCHC 33.8, RDW 12.6, Plt Count 235, MPV 8.1, Neut % (Auto) 80.0, Lymph % (Auto) 14.0, [place] % (Auto) 4.3, Eos % (Auto) 1.1, Baso % (Auto) 0.7, Neut # (Auto) 5.9, Lymph # (Auto) 1.0, [place] # (Auto) 0.3, Eos # (Auto) 0.1, Baso # (Auto) 0.1 04/09/21 08:09: Sodium 140, Potassium 3.4 L, Chloride 102, Carbon Dioxide 25, Anion Gap 16.4 H, BUN 2 L, Creatinine 0.60, Estimated Creat Clear 110, Estimated GFR 111, Est GFR ( Amer) 134, Glucose 122 H, Calcium 9.6, Magnesium 1.9, Total Bilirubin 1.0, AST 21, ALT 11 L, Alkaline Phosphatase 62, Total Protein 8.2, Albumin 4.8, Globulin 3.4 H, Albumin/Globulin Ratio 1.4, TSH 1.33 04/09/21 08:15: Urine Color Yellow, Urine Appearance Clear, Urine pH 7.5, Ur Specific [place] 1.010, Urine Protein Negative, Urine Glucose (UA) Negative, Urine Ketones Negative, Urine Blood Negative, Urine Nitrate Negative, Urine Bilirubin Negative, Urine Urobilinogen 0.2, Ur Leukocyte Esterase Negative, Urine RBC None, Urine WBC 3-5, Ur Squamous Epith Cells 3-5, Urine Bacteria None Result diagrams: 04/09/21 08:09 04/09/21 08:09 Orders (Tests/Meds): ED MEDICATIONS Generic Name Dose Route Start Last Admin Trade Name Freq PRN Reason Stop Dose Admin Sodium Chloride 1,000 mls @ 999 mls/hr 04/09/21 08:30 04/09/21 08:34 Sod Chlor 0.9% 1000ml Bag IV 04/09/21 09:30 999 mls/hr .Q1H1M JAKE Administration Discontinued Medications Generic Name Dose Route Start Last Admin Trade Name Freq PRN Reason Stop Dose Admin Diphenhydramine HCl 50 mg 04/09/21 08:25 04/09/21 08:32 Diphenhydramine 50mg/Ml Vial IV 04/09/21 08:26 50 mg ONCE ONE Administration Ketorolac Tromethamine 15 mg 04/09/21 08:25 04/09/21 08:33 Ketorolac 30mg/Ml Vial IV 04/09/21 08:26 15 mg ONCE ONE Administration Ondansetron HCl 4 mg 04/09/21 08:29 04/09/21 08:35 Ondansetron 4mg/2ml Vial IV 04/09/21 08:30 4 mg ONCE ONE Administration Prochlorperazine Edisylate 10 mg 04/09/21 08:25 04/09/21 08:34 Prochlorperazine 10mg/2ml Vial IV 04/09/21 08:26 10 mg ONCE ONE Administration ORDERS Category Date Time Status Lactic Acid S
[2021-04-09 08:31] LABS: Microscopic, Urine URINE MICROSCOPIC (MICROSCOPIC)
[2021-04-09 08:32] LABS: Appearance,Urine CLEAR (Clear); Bilirubin,Urine Negative (Negative); Blood, Urine Negative (Negative); Color,Urine YELLOW (Yellow); Glucose,Urine (UA) Negative (Negative); Ketones,Urine Negative (Negative); Leukocyte Esterase,Urine Negative (Negative); Nitrate,Urine Negative (Negative); PH,Urine 7.5 (5.0-8.5); Protein,Urine Negative (Negative); Urobilinogen,Urine 0.2 EU/dl (0.2)
[2021-04-09 08:34] LABS: Basophils # 0.1 K/mm3 (0-0.2); Basophils % 0.7 % (0.1-2.0); Eosinophils # 0.1 K/mm3 (0.0-0.4); Eosinophils % 1.1 % (0.1-12.0); Hematocrit 45.7 % (37.0-47.0); Hemoglobin 15.4 g/dL (12.2-16.2); Mean Corpuscular HGB Conc 33.8 g/dL (31.8-35.4); Mean Corpuscular Hemoglobin 30.8 pg (27.0-31.2); Mean Corpuscular Volume 91.2 fl (81-99); Mean Platelet Volume 8.1 fl (7.4-10.4); Monocytes # 0.3 K/mm3 (0.1-1.0); Monocytes % 4.3 % (1.7-9.3); Neutrophils # 5.9 K/mm3 (1.8-7.8); Platelet Count 235 K/mm3 (142-424); Red Blood Count 5.01 M/mm3 (4.20-5.40); Red Cell Distribution Width 12.6 % (11.5-17.5); White Blood Count 7.4 K/mm3 (4.8-10.8)
[2021-04-09 08:43] LABS: Alanine Aminotransferase 11 U/L (12-78); Albumin Level 4.8 g/dl (3.5-5.0); Albumin/Globulin Ratio 1.4 (1.1-1.8); Alkaline Phosphatase 62 U/L (38-126); Anion Gap 16.4 mEq/L (5-15); Aspartate Amino Transferase 21 U/L (14-36); Blood Urea Nitrogen 2 mg/dl (7-17); Calcium 9.6 mg/dl (8.4-10.2); Carbon Dioxide 25 mmol/L (22.0-30.0); Chloride 102 mmol/L (98-107); Creatinine Clearance Estimated 110 mL/min (50-200); Estimated Glomerular Filt Rate 111 ml/min (>60); GFR (African American) 134 ML/MIN (>60); Globulin 3.4 g/dL (1.3-3.2); Glucose 122 mg/dl (74-100); Magnesium 1.9 mg/dl (1.6-2.3); Potassium 3.4 mmoL/L (3.5-5.1); Sodium 140 mmol/L (136-145); Total Protein,Serum 8.2 g/dl (6.3-8.2)
[2021-04-09 09:16] LABS: Thyroid Stimulating Hormone 1.33 uIU/mL (0.465-4.68)
[2021-04-09 10:24] VITALS: BP 116/69; PULSE 80; RESP 20; TEMP 36.9; O2SAT 99
== END 2021-04-09 10:26 | disposition home or self-care (01) ==
PROVIDERS: Emergency Provider Emergency Medicine; PCP Nurse Practitioner Family
DX: R19.7 Diarrhea, unspecified (principal); R53.83 Other fatigue; R43.9 Unspecified disturbances of smell and taste; E03.9 Hypothyroidism, unspecified; I10 Essential (primary) hypertension; F33.1 Major depressive disorder, recurrent, moderate; Z79.899 Other long term (current) drug therapy; D51.0 Vitamin B12 deficiency anemia due to intrinsic factor deficiency
CPT/HCPCS: 80053; 81001; 83735; 84443; 85025; 96365; 96375; 99283; J2405

== ENCOUNTER 2021-04-20 11:22 | Outpatient (CLI) | payer BC, SELFPAY ==
[2021-04-20 11:35] VITALS: BP 122/62; PULSE 69; RESP 18; O2SAT 99
== END 2021-04-20 11:35 | disposition home or self-care (01) ==
LOC: INF 11:23
PROVIDERS: PCP Nurse Practitioner Family; Visit Provider Internal Medicine Medical Oncology
DX: E53.8 Deficiency of other specified B group vitamins (principal)
CPT/HCPCS: 96372

== ENCOUNTER → 2021-04-27 11:44 | Outpatient (CLI) | payer BC, SELFPAY ==
[2021-04-27 12:24] LABS: Basophils # 0.1 K/mm3 (0-0.2); Basophils % 0.8 % (0.1-2.0); Eosinophils # 0.1 K/mm3 (0.0-0.4); Eosinophils % 0.9 % (0.1-12.0); Hematocrit 44.4 % (37.0-47.0); Hemoglobin 15.1 g/dL (12.2-16.2); Lymphocytes # 1.5 K/mm3 (0.7-4.5); Lymphocytes % 19.2 % (10-50); Mean Corpuscular HGB Conc 34.1 g/dL (31.8-35.4); Mean Corpuscular Hemoglobin 30.4 pg (27.0-31.2); Mean Platelet Volume 8.2 fl (7.4-10.4); Monocytes # 0.2 K/mm3 (0.1-1.0); Monocytes % 2.9 % (1.7-9.3); Neutrophils # 5.9 K/mm3 (1.8-7.8); Neutrophils % 76.2 % (37.0-80.0); Platelet Count 300 K/mm3 (142-424); Red Blood Count 4.98 M/mm3 (4.20-5.40); Red Cell Distribution Width 13.1 % (11.5-17.5); White Blood Count 7.7 K/mm3 (4.8-10.8)
[2021-04-27 13:26] LABS: Chloride 100 mmol/L (98-107)
[2021-04-27 13:27] LABS: Potassium 3.8 mmoL/L (3.5-5.1); Sodium 139 mmol/L (136-145)
[2021-04-27 13:29] LABS: Alanine Aminotransferase 5 U/L (12-78); Alkaline Phosphatase 66 U/L (38-126); Anion Gap 14.8 mEq/L (5-15); Aspartate Amino Transferase 23 U/L (14-36); Bilirubin,Total 0.7 mg/dl (0.2-1.3); Blood Urea Nitrogen 3 mg/dl (7-17); Carbon Dioxide 28 mmol/L (22.0-30.0); Estimated Glomerular Filt Rate 79 ml/min (>60); GFR (African American) 96 ML/MIN (>60)
[2021-04-27 13:30] LABS: Albumin Level 5.1 g/dl (3.5-5.0); Albumin/Globulin Ratio 1.6 (1.1-1.8); Globulin 3.2 g/dL (1.3-3.2); Glucose 97 mg/dl (74-100); Total Protein,Serum 8.3 g/dl (6.3-8.2)
[2021-04-27 13:39] LABS: C-Reactive Protein 0.7 mg/L (0-4)
[2021-04-27 13:46] LABS: 25-OH Vitamin D, Total 51.3 ng/mL (30-100)
[2021-04-27 13:49] LABS: Free T4 (Free Thyroxine) 1.56 ng/dl (0.78-2.19)
[2021-04-27 14:05] LABS: Thyroid Stimulating Hormone 2.42 uIU/mL (0.465-4.68)
[2021-04-27 14:35] LABS: Vitamin B12 836 pg/mL (239-931)
[2021-04-29 08:13] LABS: Triiodothyronine (T3) Free 2.5 pg/mL (2.0-4.4)
[2021-05-05 16:11] LABS: Vitamin B1 118.4 nmol/L (66.5-200.0)
== END ==
PROVIDERS: Visit Provider Nurse Practitioner Family
DX: R55 Syncope and collapse (principal); R42 Dizziness and giddiness; R53.1 Weakness; E53.8 Deficiency of other specified B group vitamins; E03.9 Hypothyroidism, unspecified; F41.8 Other specified anxiety disorders
CPT/HCPCS: 36415; 80053; 82306; 82607; 82746; 84425; 84439; 84443; 84481; 85025; 86140

== ENCOUNTER 2021-05-04 11:13 | Outpatient (CLI) | payer BC, SELFPAY ==
[2021-05-04 11:20] VITALS: BP 109/72; PULSE 63; RESP 18; TEMP 36.7; O2SAT 100
== END 2021-05-04 11:30 | disposition home or self-care (01) ==
LOC: INF 11:13
PROVIDERS: PCP Nurse Practitioner Family; Visit Provider Internal Medicine Medical Oncology
DX: E53.8 Deficiency of other specified B group vitamins (principal)
CPT/HCPCS: 96372

== ENCOUNTER → 2021-05-08 13:22 | Outpatient (CLI) | payer BC, SELFPAY ==
--- NOTE | 2021-05-08 13:25 | MR_ITS ---
PROCEDURE: MR HEAD/BRAIN WO CON CLINICAL INDICATION: DIZZINESS AND NEAR SYNCOPE COMPARISON: MR MR HEAD/BRAIN WO/W CON from 03/28/2020 TECHNIQUE: Routine multiplanar multi echo sequences are performed without gadolinium enhancement. FINDINGS: No midline shift, mass effect, intracranial hemorrhage, or hydrocephalus. No evidence of acute infarction. There are few small T2 white matter hyperintensities which are nonspecific.. The cerebellopontine angles, cerebellum, and brainstem have an unremarkable appearance. The pituitary, optic chiasm, corpus callosum, and craniocervical junction have an unremarkable appearance. No mastoid effusion or sinus air-fluid level. IMPRESSION: 1. No acute intracranial findings. 2. There are few scattered small T2 white matter hyperintensities which are nonspecific. Overall no significant change. Dictated by: Felipe Albarran MD 05/11/2021 09:48 Felipe Albarran MD in [place] 05/11/2021 09:48
== END ==
PROVIDERS: PCP Nurse Practitioner Family; Visit Provider Nurse Practitioner Family
DX: R42 Dizziness and giddiness (principal); R55 Syncope and collapse; R53.1 Weakness
CPT/HCPCS: 70551

== ENCOUNTER 2021-05-21 10:09 | Outpatient (CLI) | payer BC, SELFPAY ==
[2021-05-21 10:24] VITALS: BP 158/76; PULSE 64; RESP 18; TEMP 36.3; O2SAT 100
== END 2021-05-21 10:35 | disposition home or self-care (01) ==
LOC: INF 10:10
PROVIDERS: PCP Nurse Practitioner Family; Visit Provider Internal Medicine Medical Oncology
DX: E53.8 Deficiency of other specified B group vitamins (principal)
CPT/HCPCS: 96372

== ENCOUNTER → 2021-05-29 09:18 | Outpatient (CLI) | payer BC, SELFPAY | PROVIDERS: PCP Nurse Practitioner Family; Visit Provider Nurse Practitioner | DX: Z20.822 Contact with and (suspected) exposure to COVID-19 (principal) | CPT/HCPCS: C9803; U0003; U0005 ==

== ENCOUNTER → 2021-08-28 13:55 | Outpatient (CLI) | payer BC, SELFPAY | PROVIDERS: PCP Nurse Practitioner Family; Visit Provider Nurse Practitioner Family | DX: R00.1 Bradycardia, unspecified (principal) | CPT/HCPCS: 93225; 93226 ==

== ENCOUNTER → 2021-09-04 10:29 | Outpatient (CLI) | payer BC, SELFPAY | PROVIDERS: PCP Nurse Practitioner Family; Visit Provider Internal Medicine Cardiovascular Disease | DX: R42 Dizziness and giddiness (principal); R94.31 Abnormal electrocardiogram [ECG] [EKG]; K21.9 Gastro-esophageal reflux disease without esophagitis | CPT/HCPCS: 93270 ==

== ENCOUNTER → 2021-09-10 07:15 | Outpatient (CLI) | payer SELFPAY ==
--- NOTE | 2021-09-10 07:24 | CT_ITS ---
FINAL REPORT TECHNIQUE: Thin section axial images were obtained through the heart and coronary arteries per CT coronary calcium score protocol. This study was performed with techniques to keep radiation doses as low as reasonably achievable (ALARA). Individualized dose reduction techniques using automated exposure control or adjustment of mA and/or kV according to the patient's size were employed. CLINICAL HISTORY: . calcium score, chest pain, bradycardia FINDINGS: On the axial images, no calcification is identified. This gives a coronary artery calcium score of 0 based on the Agatston scale. This coronary calcium score places the patient within the 0 percentile based on age and gender. The heart is normal in size. There is no pleural or pericardial effusion. Limited evaluation of the lungs reveal no suspicious nodule. IMPRESSION: Coronary calcium score of 0. No identifiable calcified plaque is seen. Reviewed, Interpreted and Dictated by Adama Austin III, MD Transcribed by Nati Sands Authenticated by Adama Austin III, MD on 09/10/2021 12:15:20 PM [facility]
== END ==
PROVIDERS: PCP Nurse Practitioner Family; Visit Provider Internal Medicine Cardiovascular Disease
DX: R42 Dizziness and giddiness (principal); K21.9 Gastro-esophageal reflux disease without esophagitis; R94.31 Abnormal electrocardiogram [ECG] [EKG]
CPT/HCPCS: 75571

== ENCOUNTER → 2021-09-10 07:21 | Outpatient (CLI) | payer BC, SELFPAY ==
--- NOTE | 2021-09-10 | CA_ITS ---
APPROVED REPORT Exam: Exercise Treadmill Technologist: Sarah Garcia, Ht: 5 ft 2 in Wt: 126 lbs BSA: 1.57 m2 HR: 77 bpm BP: 126/78 mmHg Rhythm: NSR, rightward axis Indications: SOB Medical History Medications: Synthroid,,,,, VitB12,,,,, Sertaline,,,,, Stress Test Details Test: Daysi HR Resting HR: 98 bpm Max Heart Rate (APMHR): 180.975663 bpm Max HR Achieved: 176 bpm Target HR (85% APMHR): 153.186971 bpm % of APMHR: 97.78 Recovery HR: 155 bpm BP Resting BP: 116/79 mmHg Max BP: 156/82 mmHg Recovery BP: 134.0/77.0 mmHg ECG Resting ECG: NSR, rightward axis Clinical Exercise duration: 09:27 min Highest Stage Achieved: Exercise capacity: 10.1 METs Stress ECG Conclusion Pt exercised total of 9:27 into stage 4 of daysi protocol. No CP noted. No arrhythmias noted. Allowing for motion artifact the ST response to exercise is within normal. Normal GXT. Stress echo images reported separately. Test Summary REST . . . . . . . Sitting REST . . . . . . . Standing REST 02:47 0.0 0.0 98 . 116/ 79 . . Stage 1 01:00 10.0 1.7 110 . . . . Stage 1 02:00 10.0 1.7 116 . . . . Stage 1 03:00 10.0 1.7 123 . 134/ 78 . . Stage 2 01:00 12.0 2.5 130 . . . . Stage 2 02:00 12.0 2.5 135 . . . . Stage 2 03:00 12.0 2.5 140 . 155/ 80 . . Stage 3 01:00 14.0 3.4 155 . . . . Stage 3 02:00 14.0 3.4 161 . 156/ 82 . . Stage 3 03:00 14.0 3.4 167 . 156/ 82 . . Stage 4 00:27 16.0 4.2 171 . . . Stop exercise at 09:27 RECOVERY 01:00 0.0 0.0 155 . . . . RECOVERY 02:00 0.0 0.0 127 . . . . RECOVERY 03:00 0.0 0.0 127 . . . . RECOVERY 04:00 0.0 0.0 105 . 134/ 77 . . RECOVERY 05:00 0.0 0.0 103 . 136/ 73 . . RECOVERY 05:26 0.0 0.0 102 . 136/ 73 . . Electronically signed by : Adolfo Pantoja MD 09/11/2021 14:28:17
--- NOTE | 2021-09-10 07:50 | CA_ITS ---
APPROVED REPORT EXAM: Comprehensive 2D, Doppler, and color-flow Echocardiogram Cloud Solutions Architect: Kira Ambrocio RVT Ht: 5 ft 2 in Wt: 126lbs BSA: 1.57 BP: 117/65 mmHg Indications: BRADYCARDIA,DIZZINESS,GERD,ABN EKG,SOA Stress Test Details HR Max Heart Rate (APMHR): 180.412855 bpm Target HR (85% APMHR): 153.732731 bpm BP ECG Conclusion 1. Patient exercised on Gerg protocol 9 minutes and 27 seconds, achieved 10.1 METS of workload on treadmill, the blood pressure response to exercise was adequate, there was no exercise-induced chest discomfort, EKG with exercise was negative for ischemia. 2. Normal left ventricular size and function at rest with no regional wall motion abnormality, with exercise there is increase in contractility of all the segments of the myocardium with hyperdynamic left ventricular systolic response, no obvious regional wall motion abnormality to suggest underlying ischemic heart disease 3. Normal exercise stress echo. Electronically signed by : Adolfo Pantoja MD 09/11/2021 14:29:57
== END ==
PROVIDERS: PCP Nurse Practitioner Family; Visit Provider Internal Medicine Cardiovascular Disease
DX: R42 Dizziness and giddiness (principal); K21.9 Gastro-esophageal reflux disease without esophagitis; R94.31 Abnormal electrocardiogram [ECG] [EKG]
CPT/HCPCS: 93017; 93350

== ENCOUNTER → 2021-10-20 16:03 | Outpatient (POV) | payer BC, SELFPAY | PROVIDERS: Visit Provider Dermatology | DX: Z00.00 Encounter for general adult medical examination without abnormal findings (principal) ==

== ENCOUNTER 2022-01-21 17:04 | Emergency (ER) | payer BC, SELFPAY ==
[2022-01-21 17:30] VITALS: BP 136/84; PULSE 68; RESP 17; TEMP 36.8; O2SAT 100; BMI 24.1
--- NOTE | 2022-01-21 17:43 | HMH.EDUTC ---
[facility] [place] Clinical Impression: UTI (urinary tract infection) Qualifiers: Urinary tract infection type: site unspecified Hematuria presence: with hematuria Qualified Code(s): N39.0 - Urinary tract infection, site not specified Disposition: Home, Self-Care Condition on Discharge: Good Instructions: Urinary Tract Infection, Urine Culture, DI for Urinary Tract Infection (UTI), Phenazopyridine Additional Instructions: Drink plenty of fluids. Take tylenol or ibuprofen for pain or fever. Take the medications as directed. Follow up with your regular doctor. GO TO THE ER FOR ANY WORSENING SYMPTOMS The pyridium will make your urine turn orange, this is an expected side effect. It will stain your clothes if it comes into contact with them. We will culture the urine. That will tell what bacteria is causing your infection and which antibiotics will treat it best. Sometimes the first antibiotic we prescribe turns out to not work against different bacteria. So, make sure you follow up within 3 days if you are not getting better. Prescriptions: Ondansetron [Zofran 4mg ODT] 4 mg PO Q8HP PRN #12 tab PRN Reason: Nausea Transmission Status: Received by [id number] Nitrofurantoin Monohyd/M-Cryst [Macrobid 100 mg Capsule] 100 mg PO BID 5 Days #10 cap Transmission Status: Received by [id number] Phenazopyridine HCl [Pyridium 200mg Tablet] 200 pow PO TID #6 tab Transmission Status: Received by [id number] Referrals: Janna Gomez APRN [Primary Care Provider] - Time of Disposition: 17:55 Medical Decision Making - Medical Records Medical records reviewed: No: I reviewed the patient's medical records. - Klever Inquiry Pt receiving controlled substance: No Vital Signs: 01/21/22 17:30 01/21/22 18:03 Temperature 98.2 F 98.2 F Temperature Source Oral Pulse Rate 68 Pulse Rate [Left] 68 Respiratory Rate 17 17 Blood Pressure 136/84 Blood Pressure [Right Arm] 136/84 Blood Pressure Mean [Right Arm] 101 02 Sat by Pulse Oximetry 100 - Lab Data Lab results reviewed: Yes: I reviewed the patient's lab results. Lab Results 01/21/22 17:42: Urine Color Yellow, Urine Appearance Clear, Urine pH 7.0, Ur Specific [place] 1.010, Urine Protein Negative, Urine Glucose (UA) Negative, Urine Ketones Negative, Urine Blood Negative, Urine Nitrate Negative, Urine Bilirubin Negative, Urine Urobilinogen 0.2, Ur Leukocyte Esterase Trace Orders (Tests/Meds): ORDERS Category Date Time Status Urine Culture Stat Micro 01/21/22 17:25 Received [facility] [place] HPI - General Stated complaint: possible UTI Time Seen by Provider: 01/21/22 17:43 Mode of Arrival: Ambulatory Source of Information: Patient Limitations: No Limitations Description of Symptoms (Recalled from Triage Doc. by RN): patient comes in with complaints of possible uti symptoms. HEENT Symptoms (Recalled from RN notes): No Resp Symptoms (Recalled from RN notes): No Skin Symptoms (Recalled from RN notes): No MS Symptoms (Recalled from RN notes): No Functional Status (Recalled from RN notes): n/a - History of Present Illness Provider Complaint: She states that since yesterday she has had left sided low back pain, dysuria, and urinary frequency. - Related Data Home Medications Medication Instructions Recorded Confirmed levothyroxine 75 mcg tablet 75 mcg PO DAILY tab 01/29/21 01/22/22 cyanocobalamin (vitamin B-12) 1,000 mcg PO DAILY tab 03/02/21 01/22/22 1,000 mcg tablet Previous Rx's Medication Instructions Recorded omeprazole 40 mg capsule,delayed 40 mg PO DAILY #30 cap 09/04/21 release Nitrofurantoin Monohyd/M-Cryst 100 mg PO BID 5 Days #10 cap 01/21/22 [Macrobid 100 mg Capsule] Ondansetron [Zofran 4mg ODT] 4 mg PO Q8HP PRN #12 tab 01/21/22 Phenazopyridine HCl [Pyridium 200 pow PO TID #6 tab 01/21/22 200mg Tablet] venlafaxine 150 mg 150 mg PO DAILY #30 cap 01/22/22 capsul
[2022-01-21 17:44] LABS: Apearance,Urine Clear (Clear); Bilirubin,Urine Negative (Negative); Blood, Urine Negative (Negative); Color,Urine Yellow (Yellow); Glucose,Urine (UA) Negative (Negative); Ketones,Urine Negative (Negative); Protein,Urine Negative (Negative); UTC Leukocyte Esterase,Urine Trace (Negative); Urobilinogen,Urine 0.2 EU/dl (0.2)
[2022-01-21 17:45] LABS: UTC Nitrate,Urine Negative (Negative)
[2022-01-21 18:03] VITALS: BP 136/84; PULSE 68; RESP 17; TEMP 36.8
== END 2022-01-21 18:04 | disposition home or self-care (01) ==
PROVIDERS: Emergency Provider Nurse Practitioner Family; PCP Nurse Practitioner Family
DX: N39.0 Urinary tract infection, site not specified (principal); R42 Dizziness and giddiness; K21.9 Gastro-esophageal reflux disease without esophagitis; R94.31 Abnormal electrocardiogram [ECG] [EKG]; F32.A Depression, unspecified; M54.50 Low back pain, unspecified; I10 Essential (primary) hypertension; D64.9 Anemia, unspecified; E03.9 Hypothyroidism, unspecified; Z87.442 Personal history of urinary calculi; Z87.440 Personal history of urinary (tract) infections; Z87.891 Personal history of nicotine dependence; Z83.438 Family history of other disorder of lipoprotein metabolism and other lipidemia; Z83.3 Family history of diabetes mellitus
CPT/HCPCS: 81003; 87086; 99213; G0463

== ENCOUNTER → 2022-03-29 10:24 | Outpatient (CLI) | payer BC, SELFPAY ==
--- NOTE | 2022-03-29 10:25 | MM_ITS ---
PROCEDURE INFORMATION: Exam: MG Bilateral Screening 3D Mammography Exam date and time: 03/29/2022 10:35 AM Age: 42 years old Clinical indication: Screening. Her maternal great grandmother had breast cancer. TECHNIQUE: Imaging protocol: Bilateral Screening tomosynthesis and 2D mammography including computer-aided detection (CAD) when performed. COMPARISON: 1. MG MM DIG SCREENING MAMM BI W/CAD 03/02/2021 3:49 PM 2. BL US BREAST-LT 04/13/2013 3:15 PM FINDINGS: MAMMOGRAPHY: Breast composition: The breasts are heterogeneously dense, which may obscure small masses. Mass: None. Architectural distortion: None. Calcifications: No suspicious calcifications. Asymmetric density: No developing asymmetry. Skin thickening: None. Axillary adenopathy: None. IMPRESSION: No mammographic evidence of malignancy. Annual screening is recommended unless otherwise clinically indicated. ASSESSMENT: BI-RADS Category 1: Negative
== END ==
PROVIDERS: PCP Nurse Practitioner Family; Visit Provider Nurse Practitioner Obstetrics & Gynecology
DX: Z12.31 Encounter for screening mammogram for malignant neoplasm of breast (principal)
CPT/HCPCS: 77063; 77067

== ENCOUNTER → 2022-03-31 08:09 | Outpatient (CLI) | payer BC, SELFPAY ==
[2022-03-31 08:15] LABS: MANUAL DIFFERENTIAL MANUAL DIFFERENTIAL (MANUAL DIFF)
[2022-03-31 08:45] LABS: Basophils # 0.1 K/mm3 (0-0.2); Basophils % 0.9 % (0.1-2.0); Eosinophils # 0.2 K/mm3 (0.0-0.4); Eosinophils % 4.3 % (0.1-12.0); Hematocrit 42.5 % (37.0-47.0); Hemoglobin 13.9 g/dL (12.2-16.2); Lymphocytes # 1.3 K/mm3 (0.7-4.5); Lymphocytes % 24.1 % (10-50); Mean Corpuscular HGB Conc 32.8 g/dL (31.8-35.4); Mean Corpuscular Hemoglobin 30.1 pg (27.0-31.2); Mean Corpuscular Volume 91.7 fl (81-99); Mean Platelet Volume 8.1 fl (7.4-10.4); Monocytes # 0.3 K/mm3 (0.1-1.0); Neutrophils # 3.4 K/mm3 (1.8-7.8); Neutrophils % 65.6 % (37.0-80.0); Platelet Count 251 K/mm3 (142-424); Red Blood Count 4.64 M/mm3 (4.20-5.40); Red Cell Distribution Width 13.5 % (11.5-17.5); White Blood Count 5.2 K/mm3 (4.8-10.8)
[2022-03-31 08:56] LABS: Eosinophils % 4 % (0-3); Lymphocytes % 20 % (10-50); Monocytes % 6 % (2-9); Neutrophils % 70 % (42-76); Total Cells Counted 100
[2022-03-31 08:57] LABS: Platelet Estimate Normal; RBC Morphology Normal
[2022-03-31 09:05] LABS: Chloride 99 mmol/L (98-107); Potassium 4.4 mmoL/L (3.5-5.1); Sodium 137 mmol/L (136-145)
[2022-03-31 09:07] LABS: Blood Urea Nitrogen 8 mg/dl (7-17); Estimated Glomerular Filt Rate 79 ml/min (>60); GFR (African American) 96 ML/MIN (>60)
[2022-03-31 09:08] LABS: Alanine Aminotransferase 17 U/L (12-78); Albumin Level 4.4 g/dl (3.5-5.0); Albumin/Globulin Ratio 1.6 (1.1-1.8); Alkaline Phosphatase 66 U/L (38-126); Anion Gap 11.4 mEq/L (5-15); Aspartate Amino Transferase 27 U/L (14-36); Bilirubin,Total 0.5 mg/dl (0.2-1.3); Calcium 8.8 mg/dl (8.4-10.2); Carbon Dioxide 31 mmol/L (22.0-30.0); Cholesterol 227 mg/dl (140-200); Globulin 2.8 g/dL (1.3-3.2); Glucose 95 mg/dl (74-100); Total Protein,Serum 7.2 g/dl (6.3-8.2); Triglycerides 116 mg/dl (30-150); VLDL Cholesterol 23 mg/dL (0-40)
[2022-03-31 09:09] LABS: Chol/HDL Ratio 3.4 (1-3.5); HDL Cholesterol 66 mg/dl (40-60)
[2022-03-31 09:19] LABS: Direct LDL Cholesterol 116.93 mg/dL (100-129)
[2022-04-01 08:16] LABS: FSH 19.7 mIU/mL (.); LH 11.6 mIU/mL (.)
== END ==
PROVIDERS: PCP Nurse Practitioner Family; Visit Provider Nurse Practitioner Obstetrics & Gynecology
DX: N95.1 Menopausal and female climacteric states (principal)
CPT/HCPCS: 36415; 80053; 80061; 82670; 83001; 83002; 85007; 85014; 85018; 85048; 85049

== ENCOUNTER 2022-04-16 11:46 | Emergency (ER) | payer BC, SELFPAY ==
[2022-04-16 13:20] VITALS: BP 136/74; PULSE 86; RESP 19; TEMP 36.7; O2SAT 98; BMI 24.7
[2022-04-16 13:52] LABS: Apearance,Urine Clear (Clear); Color,Urine Yellow (Yellow)
--- NOTE | 2022-04-16 13:52 | EXP.UTC ---
Discharge Plan Disposition Patient Disposition: Home, Self-Care Condition: Good Prescriptions Prescriptions: New cefdinir 300 mg capsule 300 mg PO BID Qty: 20 0RF phenazopyridine [Pyridium] 200 mg tablet 200 mg PO Q8H 2 Days Qty: 6 0RF No Action levothyroxine [Synthroid] 75 mcg tablet 75 mcg PO DAILY Label Comments: TAKE 1 TABLET BY MOUTH ONCE DAILY cyanocobalamin (vitamin B-12) [Vitamin B-12] 1,000 mcg tablet 1,000 mcg PO DAILY Label Comments: TAKE 1 TABLET BY MOUTH ONCE DAILY venlafaxine [Effexor XR] 150 mg capsule,extended release 24hr 150 mg PO DAILY Qty: 30 2RF Referrals Follow up/Referrals: Janna Gomez APRN [Primary Care Provider] - See instructions Activity Restrictions/Add. Instructions Additional Instructions/Restrictions: *Increase fluids. Water not Soda or Tea *Start antibiotic immediately and be sure to take as ordered for the FULL length of time although you should start to see improvement over the next 48 hours *Pyridium as needed Remember this medication will turn your urine . This is normal but it will stain what ever it gets on *You should not use Pyridium for more than 48 hours. If so , follow up with your primary physician to review urine culture and ensure that antibiotic is adequate for infection *Be SURE to follow up anytime for new or worsening symptoms with your family doctor. AND in 48 hours for urine culture results with your family doctor, if you do not have a doctor then you may call back to the [facility] for urine culture results and further treatment. We do recommend that you choose and establish care with a Primary Care Physician. ?AND follow up with them ?in 10-14 days to repeat UA to ensure infection is resolved and blood no longer present *Be sure to let your PCP know that we sent urine cultures from the [facility] so they can follow up to ensure that you area the on the correct antibiotic Call your doctor office and make appointment for 48 hours (2 days from today) ?to follow up and get the results of your urine culture and further treatment Clinical Impressions Clinical Impression: UTI (urinary tract infection) Instructions Patient Instructions: DI for Urinary Tract Infection (UTI), Cefdinir Discharge ED Provider: Christine Almeida [facility] [place] [facility] [place] General Stated complaint: Back and side pain when urination Mode of Arrival: Ambulatory Source of Information: Patient Limitations: No Limitations Time Seen by Provider: 04/16/22 13:52 Description of Symptoms (Recalled from Triage Doc. by RN): PATIENT C/O LEFT FLANK PAIN WITH URINATION X 2 DAYS HEENT Symptoms (Recalled from RN notes): No Resp Symptoms (Recalled from RN notes): No Skin Symptoms (Recalled from RN notes): No MS Symptoms (Recalled from RN notes): No Functional Status (Recalled from RN notes): WNL History of Present Illness Provider Complaint: Patient states that she has been having achy like feeling in her left flank area and burning with urination States that feels like it does when she has UTI States that today her daughter was coming in to get checked so she did too Related Data Home Medications Medication Instructions Recorded Confirmed levothyroxine 75 mcg tablet 75 mcg PO DAILY hypothyroid 01/29/21 04/14/22 (Synthroid) cyanocobalamin (vitamin B-12) 1,000 mcg PO DAILY Supplement 03/02/21 04/14/22 1,000 mcg tablet (Vitamin B-12) Previous Rx's Medication Instructions Recorded venlafaxine 150 mg 150 mg PO DAILY #30 caps 03/03/22 capsule,extended release 24 hr (Effexor XR) cefdinir 300 mg capsule 300 mg PO BID #20 caps 04/16/22 phenazopyridine 200 mg tablet 200 mg PO Q8H pain 2 days #6 tabs 04/16/22 (Pyridium) Allergies Allergy/AdvReac Type Severity Reaction Status Date / Time No Known Allergies Allergy Verified 04/14/22 12:59 Worker's Comp Is this a Worker's Comp case?: No PFSH PFS Medical History (Updated 04/16/22 @ 14:02 by Christine Almeida APRN) Abnormal elena
[2022-04-16 13:53] LABS: Bilirubin,Urine Negative (Negative); Blood, Urine Negative (Negative); Glucose,Urine (UA) Negative (Negative); Ketones,Urine Negative (Negative); Protein,Urine Negative (Negative); Specific Gravity, Urine 1.005 (1.005-1.030); UTC Leukocyte Esterase,Urine 2+ (Negative); UTC Nitrate,Urine Negative (Negative); Urobilinogen,Urine 0.2 EU/dl (0.2)
[2022-04-16 14:23] VITALS: BP 136/74; PULSE 86; RESP 19; TEMP 36.7; O2SAT 98
== END 2022-04-16 14:29 | disposition home or self-care (01) ==
PROVIDERS: Emergency Provider Nurse Practitioner; PCP Nurse Practitioner Family
DX: N39.0 Urinary tract infection, site not specified (principal)
CPT/HCPCS: 81003; 87086; 99212; G0463

== ENCOUNTER → 2022-06-25 09:10 | Outpatient (CLI) | payer BC, SELFPAY ==
--- NOTE | 2022-06-25 09:16 | MM_ITS ---
PROCEDURE INFORMATION: Exam: US Right Breast, Complete US Left Breast, Complete MG Bilateral Diagnostic Breast Tomosynthesis Exam date and time: 06/25/2022 9:12 AM Age: 42 years old Clinical indication: Bilateral breast pain; Bilateral breast swelling; RT sided chest wall pain, lt breast pain, inverted nipple TECHNIQUE: Imaging protocol: Complete ultrasound of all four quadrants of the Right breast and the retroareolar regions, including ultrasound of the axilla when performed. Complete ultrasound of all four quadrants of the Left breast and the retroareolar regions, including ultrasound of the axilla when performed. Bilateral Diagnostic tomosynthesis and 2D mammography including computer-aided detection (CAD) when performed. Unilateral or bilateral exam. COMPARISON: 1. MG MM DIG SCREENING MAMM BI W/CAD 03/29/2022 10:35 AM 2. MG MM DIG SCREENING MAMM BI W/CAD 03/02/2021 3:49 PM FINDINGS: MAMMOGRAPHY: The breasts are heterogeneously dense, which may obscure small masses. There is no stellate mass, architectural distortion or suspicious microcalcifications in either breast to suggest malignancy. No skin thickening or axillary adenopathy. ULTRASOUND: Sonographic images of both breasts including the retroareolar regions, all 4 quadrants and the axilla do not demonstrate any solid masses. Minimal subcentimeter cystic change is present bilaterally. No architectural distortion or acoustical shadowing. No skin thickening or axillary adenopathy. IMPRESSION: 1. No mammographic or sonographic evidence of malignancy. Annual bilateral mammographic screening is recommended unless otherwise clinically indicated. 2. If the nipple retraction is a new and fixed finding, further evaluation with MRI may be performed ASSESSMENT: BI-RADS Category 2: Benign
[2022-06-25 12:36] LABS: Thyroid Stimulating Hormone 2.82 uIU/mL (0.465-4.68)
== END ==
LOC: RAD 09:11
PROVIDERS: PCP Nurse Practitioner Family; Visit Provider Internal Medicine
DX: N64.4 Mastodynia (principal); N64.59 Other signs and symptoms in breast; N64.52 Nipple discharge; R07.89 Other chest pain; E03.8 Other specified hypothyroidism; E06.3 Autoimmune thyroiditis
CPT/HCPCS: 36415; 76641; 77062; 77066; 84443; G0279

== ENCOUNTER → 2022-08-18 16:36 | Outpatient (CLI) | payer BC, SELFPAY ==
[2022-08-18 18:34] LABS: Thyroid Stimulating Hormone 3.33 uIU/mL (0.465-4.68)
== END ==
PROVIDERS: PCP Nurse Practitioner Family; Visit Provider Internal Medicine
DX: E03.8 Other specified hypothyroidism (principal); E06.3 Autoimmune thyroiditis
CPT/HCPCS: 36415; 84443

== ENCOUNTER 2023-01-10 11:11 | Emergency (ER) | payer BC, SELFPAY ==
[2023-01-10 11:11] VITALS: BP 149/87; PULSE 86; RESP 18; TEMP 36.9; O2SAT 96; BMI 31.1
--- NOTE | 2023-01-10 11:30 | EXP.UTC ---
Discharge Plan Disposition Patient Disposition: Home, Self-Care Condition: Good Prescriptions Prescriptions: New methylprednisolone [Medrol ([place])] 4 mg tablets,dose pack See Rx Instructions .Route .COMPLEX 6 Days Qty: 21 0RF Rx Instructions: taper pack; amoxicillin-pot clavulanate 875-125 mg Tablet 1 tab PO Q12H Qty: 20 0RF No Action levothyroxine [Synthroid] 75 mcg tablet 75 mcg PO DAILY Patient Comments: TAKE 1 TABLET BY MOUTH ONCE DAILY cyanocobalamin (vitamin B-12) [Vitamin B-12] 1,000 mcg tablet 1,000 mcg PO DAILY Patient Comments: TAKE 1 TABLET BY MOUTH ONCE DAILY venlafaxine [Effexor XR] 150 mg capsule,extended release 24hr 150 mg PO DAILY Qty: 30 2RF phenazopyridine [Pyridium] 200 mg tablet 200 mg PO Q8H 2 Days Qty: 6 0RF Referrals Follow up/Referrals: Janna Gomez APRN [Primary Care Provider] - See instructions Activity Restrictions/Add. Instructions Additional Instructions/Restrictions: *Monitor Temp, Over the counter Motrin or Tylenol as directed/as needed Tylenol every 4 hours and Motrin every 6 hours (as long as your family doctor has told you that you can take it) for fever or pain. and straight to ER if unable to lower temp less than 101.0 after medication given *Warm salt water gargles may help to soothe the throat *Throat Lozenges? *Warm fluids like tea with honey may help to soothe the throat? *Sleep elevated *Humidifier/Vaporizer take medication as prescribed Follow up IMMEDIATELY for new or worsening symptoms or no Noticeable improvement over the next 48-72 hours. 911 for difficulty breathing or swallowing Clinical Impressions Clinical Impression: Sinusitis Qualifiers: Sinusitis location: unspecified location Chronicity: unspecified Qualified Code(s): J32.9 - Chronic sinusitis, unspecified Instructions Patient Instructions: Sinusitis, Sinus Headache, DI for Sinusitis Discharge ED Provider: Christine Almeida [facility] General Stated complaint: h/a, body aches Mode of Arrival: Ambulatory Source of Information: Patient Limitations: No Limitations Time Seen by Provider: 01/10/23 11:30 Description of Symptoms (Recalled from Triage Doc. by RN): Patient reports headache, face pain and aches since yesterday. HEENT Symptoms (Recalled from RN notes): Yes Resp Symptoms (Recalled from RN notes): No Skin Symptoms (Recalled from RN notes): No MS Symptoms (Recalled from RN notes): No Functional Status (Recalled from RN notes): wnl History of Present Illness Provider Complaint: Patient states that she gets sinus infections and when she does she gets a bad sinus headache that OTC medication doesnt help States yesterday her sinus pressure continued to get worse States that she was feeling the pressure behind her eyes and draining in the back of her throat States that her face feels sore from the sinus pressure and today when she woke up it wasn't any better and she was feeling achy States that she thinks she may have a bad sinus infection States that she took 200mg of Motrin this am and some tylenol but hasnt helped much with the sinus headache Related Data Home Medications Medication Instructions Recorded Confirmed levothyroxine 75 mcg tablet 75 mcg PO DAILY hypothyroid 01/29/21 08/10/22 (Synthroid) cyanocobalamin (vitamin B-12) 1,000 mcg PO DAILY Supplement 03/02/21 08/10/22 1,000 mcg tablet (Vitamin B-12) Previous Rx's Medication Instructions Recorded phenazopyridine 200 mg tablet 200 mg PO Q8H pain 2 days #6 tabs 04/16/22 (Pyridium) venlafaxine 150 mg 150 mg PO DAILY #30 caps 12/08/22 capsule,extended release 24 hr (Effexor XR) amoxicillin 875 mg-potassium 1 tab PO Q12H #20 tabs 01/10/23 clavulanate 125 mg tablet methylprednisolone 4 mg tablets in See Rx Instructions .Route 01/10/23 a dose pack (Medrol ([place])) .COMPLEX 6 days #21 tabs Allergies Allergy/AdvReac Type Severity
[2023-01-10 11:55] VITALS: BP 149/87; PULSE 86; RESP 18; TEMP 36.9; O2SAT 96
== END 2023-01-10 11:56 | disposition home or self-care (01) ==
PROVIDERS: Emergency Provider Nurse Practitioner; PCP Nurse Practitioner Family
DX: J32.9 Chronic sinusitis, unspecified (principal); K21.9 Gastro-esophageal reflux disease without esophagitis; F41.1 Generalized anxiety disorder; Z87.891 Personal history of nicotine dependence; M79.18 Myalgia, other site
CPT/HCPCS: 96372; 99212; 99214; G0463

== ENCOUNTER → 2023-02-04 16:43 | Outpatient (CLI) | payer BC, SELFPAY ==
[2023-02-04 17:07] LABS: T4 (Thyroxine) 12.5 ug/dl (5.53-11.0)
[2023-02-04 17:21] LABS: Thyroid Stimulating Hormone 2.98 uIU/mL (0.465-4.68)
[2023-02-06 07:44] LABS: Triiodothyronine (T3) Free 2.3 pg/mL (2.0-4.4)
== END ==
PROVIDERS: PCP Nurse Practitioner Family; Visit Provider Nurse Practitioner Family
DX: E03.9 Hypothyroidism, unspecified (principal)
CPT/HCPCS: 84436; 84443; 84481

== ENCOUNTER → 2023-02-25 15:23 | Outpatient (CLI) | payer BC, SELFPAY ==
--- NOTE | 2023-02-25 15:26 | XR_ITS ---
FINAL REPORT CLINICAL HISTORY: shortness of breath post COVID-19 x 8 weeks cough post COVID-19 x 8 weeks non smoker COMPARISON: 05/14/2021 FINDINGS: TWO-VIEW CHEST The heart size is normal. The mediastinum is normal. There is minimal scar at the left base. The lungs are otherwise clear. There is no pneumothorax. IMPRESSION: No acute cardiopulmonary process. Reviewed, Interpreted and Dictated by Russell Varghese MD Transcribed by Nati Sands Authenticated and . [facility]
== END ==
LOC: RAD 15:23
PROVIDERS: PCP Nurse Practitioner Family; Visit Provider Nurse Practitioner Family
DX: R05.1 Acute cough (principal); R06.02 Shortness of breath
CPT/HCPCS: 71046

== ENCOUNTER → 2023-03-08 07:51 | Outpatient (CLI) | payer BC, SELFPAY ==
[2023-03-08 08:35] VITALS: PULSE 84; PULSE 85
== END ==
LOC: RT 07:52
PROVIDERS: PCP Nurse Practitioner Family; Visit Provider Nurse Practitioner Family
DX: R06.02 Shortness of breath (principal); R05.1 Acute cough
CPT/HCPCS: 94060; 94640

== ENCOUNTER → 2023-03-31 15:30 | Outpatient (CLI) | payer BC, SELFPAY ==
--- NOTE | 2023-03-31 15:31 | MM_ITS ---
PROCEDURE INFORMATION: Exam: MG Bilateral Screening 3D Mammography Exam date and time: 03/31/2023 3:26 PM Age: 43 years old Clinical indication: Screening mammogram TECHNIQUE: Imaging protocol: Bilateral Screening tomosynthesis and 2D mammography including computer-aided detection (CAD) when performed. COMPARISON: 1. MG MM DIG MAMM BI DX W/CAD 06/25/2022 9:12 AM 2. MG MM DIG SCREENING MAMM BI W/CAD 03/29/2022 10:35 AM 3. MG MM DIG SCREENING MAMM BI W/CAD 03/02/2021 3:49 PM 4. US BREAST LT COMPLETE 06/25/2022 10:25 AM FINDINGS: MAMMOGRAPHY: Breast composition: The breast is heterogeneously dense, which may obscure small masses. Mass: None. Architectural distortion: No new or suspicious architectural distortion. Calcifications: No new or suspicious calcifications are present Asymmetric density: No new or suspicious asymmetric density is present Skin thickening: None. Axillary adenopathy: None. IMPRESSION: No mammographic evidence of malignancy. Recommend annual screening mammography unless otherwise clinically indicated. ASSESSMENT: BI-RADS category 1: Negative
== END ==
PROVIDERS: PCP Nurse Practitioner Family; Visit Provider Nurse Practitioner Obstetrics & Gynecology
DX: Z12.31 Encounter for screening mammogram for malignant neoplasm of breast (principal)
CPT/HCPCS: 77063; 77067

== ENCOUNTER 2023-07-04 16:05 | Outpatient (CLI) | payer BC, SELFPAY ==
[2023-07-04 17:45] LABS: 25-OH Vitamin D, Total 26.5 ng/mL (30-100)
[2023-07-04 18:00] LABS: Thyroid Stimulating Hormone 7.77 uIU/mL (0.465-4.68)
[2023-07-04 18:19] LABS: Vitamin B12 799 pg/mL (239-931)
[2023-07-04 23:14] LABS: Ferritin 14.8 ng/ml (6.24-137)
== END 2023-07-04 23:59 ==
LOC: LAB 16:07
PROVIDERS: Internal Medicine; PCP Nurse Practitioner Family; Visit Provider Nurse Practitioner Family
DX: E53.8 Deficiency of other specified B group vitamins (principal); R79.89 Other specified abnormal findings of blood chemistry; E55.9 Vitamin D deficiency, unspecified; Z79.899 Other long term (current) drug therapy
CPT/HCPCS: 36415; 82306; 82607; 82728; 84443

== ENCOUNTER 2023-07-08 14:53 | Outpatient (CLI) | payer BC, SELFPAY ==
[2023-07-08 15:29] LABS: Free T4 (Free Thyroxine) 0.99 ng/dl (0.78-2.19)
[2023-07-08 17:53] LABS: T4 (Thyroxine) 10.5 ug/dl (5.53-11.0)
[2023-07-08 18:07] LABS: Thyroid Stimulating Hormone 8.15 uIU/mL (0.465-4.68)
[2023-07-09 08:34] LABS: Thyroid Peroxidase Antibodies >600 IU/mL (0-34); Triiodothyronine (T3) Free 2.2 pg/mL (2.0-4.4)
[2023-07-11 16:14] LABS: Thyroglobulin Level 30.5 IU/mL (0.0-0.9)
[2023-07-15 10:37] LABS: Triiodothyronine (T3) Reverse 22.8
== END 2023-07-08 23:59 ==
LOC: LAB.DROPOF 14:53
PROVIDERS: PCP Nurse Practitioner Family; Visit Provider Nurse Practitioner Family
DX: E06.3 Autoimmune thyroiditis (principal); E03.9 Hypothyroidism, unspecified
CPT/HCPCS: 84436; 84439; 84443; 84481; 84482; 86376; 86800

== ENCOUNTER 2023-07-14 08:34 | Outpatient (CLI) | payer BC, SELFPAY ==
--- NOTE | 2023-07-14 08:40 | US_ITS ---
FINAL REPORT CLINICAL HISTORY: thyroiditis FINDINGS: Limited sonographic images of the thyroid were obtained. The right lobe of the thyroid measures 4.7 x 2.0 x 1.9 cm. The left lobe of the thyroid measures 4.9 x 1.9 x 1.6 cm. The thyroid demonstrates heterogeneous echotexture, may represent thyroiditis. The isthmus measures 5 mm. IMPRESSION: Findings may represent thyroiditis Reviewed, Interpreted and Dictated by Adama Austin III, MD Transcribed by Nati Sands Authenticated and [facility]
== END 2023-07-14 23:59 ==
LOC: RAD 08:35
PROVIDERS: PCP Nurse Practitioner Family; Visit Provider Nurse Practitioner Family
DX: E06.3 Autoimmune thyroiditis (principal)
CPT/HCPCS: 76536

== ENCOUNTER 2023-08-12 12:27 | Outpatient (CLI) | payer BC, SELFPAY ==
[2023-08-12 13:44] LABS: Thyroid Stimulating Hormone 2.13 uIU/mL (0.465-4.68)
== END 2023-08-12 23:59 ==
LOC: LAB 12:29
PROVIDERS: PCP Nurse Practitioner Family; Visit Provider Internal Medicine
DX: E06.3 Autoimmune thyroiditis (principal); E03.8 Other specified hypothyroidism
CPT/HCPCS: 36415; 84443

== ENCOUNTER 2023-10-07 18:00 | Outpatient (CLI) | payer BC, SELFPAY | END 2023-10-07 23:59 | disposition home or self-care (01) | LOC: LAB.DROPOF 10-10 08:25 | PROVIDERS: PCP Nurse Practitioner Family; Visit Provider Nurse Practitioner Family | DX: R35.0 Frequency of micturition (principal) | CPT/HCPCS: 87086 ==

== ENCOUNTER 2023-10-17 14:27 | Outpatient (CLI) | payer BC, SELFPAY ==
[2023-10-17 13:53] LABS: Coronavirus 19, PCR Not Detected (NotDetected); Influenza A, PCR Not Detected (NotDetected); Influenza B, PCR Not Detected (NotDetected)
== END 2023-10-17 23:59 | disposition home or self-care (01) ==
LOC: LAB.DROPOF 14:28
PROVIDERS: PCP Nurse Practitioner Family; Visit Provider Nurse Practitioner Family
DX: R51.9 Headache, unspecified (principal); R09.81 Nasal congestion; R07.0 Pain in throat
CPT/HCPCS: 87636

== ENCOUNTER 2024-03-04 10:16 | Emergency (ER) | payer BC, SELFPAY ==
[2024-03-04 10:25] VITALS: BP 141/81; PULSE 77; RESP 18; TEMP 36.8; O2SAT 98; BMI 30.7
[2024-03-04] MEDS: TETRACAINE 0.5% OPTH SOL 15ML OP (10:40)
[2024-03-04] MEDS: FLUORESCEIN SODIUM 1MG STRIP 1 MG OP (10:40)
[2024-03-04] MEDS: EYE WASH IRRIGATION SOLN 118ML BOTTLE 120 ML OP (10:40)
--- NOTE | 2024-03-04 10:44 | ED_ITS ---
Discharge Plan Disposition Patient Disposition: Home, Self-Care Condition: Good Prescriptions Prescriptions: New moxifloxacin 0.5 % drops 2 drp ophthalmic (eye) DIRECTED 7 Days Qty: 3 0RF Rx Instructions: 2 drops every 2 hours today, then tomorrow apply 2 drops every 6 hours No Action vitamin [id number] B1 1,000-100 mg/mL solution 1 ml IM .every 2 weeks albuterol sulfate 90 mcg/actuation HFA aerosol inhaler 2 puff inhalation Q6H PRN (Reason: shortness of breath or wheezing) Qty: 8.5 0RF levothyroxine [Synthroid] 112 mcg tablet 112 mcg PO DAILY venlafaxine [Effexor XR] 150 mg capsule,extended release 24hr 150 mg PO DAILY Qty: 90 1RF Referrals Follow up/Referrals: Janna Gomez APRN [Primary Care Provider] - See instructions Activity Restrictions/Add. Instructions Additional Instructions/Restrictions: Use Moxifloxin drops as directed 2 drops every two hours today while awake and then tomorrow use 2 drops every 6 hours Follow up with with your Eye Doctor if no improvement or any worsening of symptoms Return if needed DO not wear your Contacts Clinical Impressions Clinical Impression: Corneal abrasion Instructions Patient Instructions: Corneal Abrasion, DI for Corneal Abrasion, Moxifloxacin Ophthalmic Print Language Print Language: Citizen Of [place] Discharge ED Provider: Christine Almeida [facility] [place] HPI General Stated complaint: poss scratch on left eye Mode of Arrival: Ambulatory Source of Information: Patient Limitations: No Limitations Time Seen by Provider: 03/04/24 10:30 Description of Symptoms (Recalled from Triage Doc. by RN): PATIENT C/O REDNESS, SORENESS, AND WATERY LEFT EYE THAT STARTED YESTERDAY MORNING HEENT Symptoms (Recalled from RN notes): Yes Resp Symptoms (Recalled from RN notes): No Skin Symptoms (Recalled from RN notes): No MS Symptoms (Recalled from RN notes): No Functional Status (Recalled from RN notes): WNL History of Present Illness Provider Complaint: Patient states that she woke up yesterday with her left eye watering, burning and feeling like she may have scratched it States that she wears contacts but has been wearing her glasses since this started Related Data Home Medications ?Medication ?Instructions ?Recorded ?Confirmed vitamin [id number] B1 1,000 1 ml IM .every 2 weeks 02/04/23 12/23/23 mcg-100 mg/mL injection solution levothyroxine 112 mcg tablet 112 mcg PO DAILY 07/08/23 12/23/23 (Synthroid) Previous Rx's ?Medication ?Instructions ?Recorded albuterol sulfate 90 mcg/actuation 2 puff inhalation Q6H PRN 02/04/23 aerosol inhaler shortness of breath or wheezing #8.5 grams venlafaxine 150 mg 150 mg PO DAILY #90 caps 03/02/24 capsule,extended release 24 hr (Effexor XR) moxifloxacin 0.5 % eye drops 2 drp ophthalmic (eye) DIRECTED 03/04/24 7 days #3 mL Allergies Allergy/AdvReac Type Severity Reaction Status Date / Time No Known Allergies Allergy Verified 02/22/24 11:48 Worker's Comp Is this a Worker's Comp case?: [facility] Dis[facility]: The information contained in this section may have been updated after the patient was seen, as this information can be updated by other users. Medical History Urinary tract infection Kidney stone Anxiety Generalized anxiety disorder Gastroesophageal reflux disease Dizziness Lightheaded Abnormal electrocardiography Surgical History History of hysterectomy History of appendectomy History of partial hysterectomy Social History Smoking Status: Former smoker (she quit about 4-5 years ago) tobacco type: cigarettes packs per day: 1 second hand exposure: No alcohol intake: never substance use type: denies use current occupational status: employed Travel in the last 8 weeks: Inside the [place] household members: spouse housing: house number of children: 4 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 current occupational exposures/hazards: No caffeine: Yes ROS Obtained: Yes All systems reviewed & no additional complaints except as documented and Yes Systems reviewed as appropriate & no additional complaints except as documented Constitutional Constitutional: Reports system reviewed and no additional complaints, except as documented and Reports as per HPI Eyes Eyes: Reports system reviewed and no additional complaints, except as documented, Reports as per HPI, Reports eye discharge, Reports irritation and Reports eye pain ENT Ears, Nose, Mouth, and Throat: Reports system reviewed and no additional complaints, except as documented and Reports as per HPI Cardiovascular Cardiovascular: Reports system reviewed and no additional complaints, except as documented and Reports as per HPI Respiratory Respiratory: Reports system reviewed and no additional complaints, except as documented and Reports as per HPI Gastrointestinal Gastrointestingal: Reports system reviewed and no additional complaints, except as documented and as per HPI Physical Exam General General appearance: alert and in no apparent distress Eye Eye exam: Present normal appearance, PERRL, EOMI and discharge (clear watery discharge and sensative to light) ENT ENT exam: Present mucous membranes moist Respiratory Respiratory exam: Present normal lung sounds bilaterally; Absent respiratory distress or wheezes Cardiovascular Cardiovascular exam: Present regular rate, normal rhythm and normal heart sounds Neurological Exam Neurological exam: Present alert, oriented X3 and normal gait Medical Decision Making Medical Records Screening: Per USPSTF and CDC recommendations, given the prevalence of disease in our region, it is our hospital?s policy to screen for HIV and viral Hepatitis for all patients aged 18 and over and those with ongoing risk factors. Klever Inquiry Pt receiving controlled substance: No Klever was queried for this patient: No Vital Signs: 03/04/24 10:25 Temperature 98.2 F Temperature Source Oral Pulse Rate [Left Brachial] 77 Respiratory Rate 18 Blood Pressure [Left Arm] 141/81 H Blood Pressure Mean [Left Arm] 101 Blood Pressure Source [Left Arm] Automatic Cuff Blood Pressure Position [Left Arm] Sitting 02 Sat by Pulse Oximetry 98 Oxygen Delivery Method Room Air Procedures Eye Exam/FB Removal Location: eye (L) Topical anesthetic used: tetracaine Fluorescein Stick(s) used: Yes Time Out performed: Yes Procedure performed under: direct visualization with magnification Evidence of corneal penetration: No Technique: irrigation Eye irrigated w/saline (#ccs): 30 Patient tolerated procedure: well and no complications Complications: other (small abrasion noted)
[2024-03-04 10:57] VITALS: BP 141/81; PULSE 77; RESP 18; TEMP 36.8; O2SAT 98
== END 2024-03-04 10:59 | disposition home or self-care (01) ==
PROVIDERS: Emergency Provider Nurse Practitioner; PCP Nurse Practitioner Family
DX: S05.02XA Injury of conjunctiva and corneal abrasion without foreign body, left eye, initial encounter (principal); W44.9XXA Unspecified foreign body entering into or through a natural orifice, initial encounter
CPT/HCPCS: 99212; 99214; G0463

== ENCOUNTER 2024-03-23 09:28 | Outpatient (CLI) | payer BC, SELFPAY ==
[2024-03-23 10:42] LABS: T4 (Thyroxine) 11.2 ug/dl (5.53-11.0)
[2024-03-23 10:56] LABS: Thyroid Stimulating Hormone 4.94 uIU/mL (0.465-4.68)
[2024-03-23 11:00] LABS: Ferritin 14.7 ng/ml (6.24-137)
[2024-03-23 12:06] LABS: Vitamin B12 888 pg/mL (239-931)
[2024-03-24 08:28] LABS: Triiodothyronine (T3) Free 2.4 pg/mL (2.0-4.4)
[2024-04-03 19:19] LABS: 1,25 Dihydroxy Vitamin D 70 pg/mL (.); 1,25-Dihydroxy, Vitamin D-2 <10 pg/mL (.); 1,25-Dihydroxy, Vitamin D-3 70 pg/mL (.)
== END 2024-03-23 23:59 | disposition home or self-care (01) ==
LOC: LAB 09:29
PROVIDERS: PCP Nurse Practitioner Family; Visit Provider Nurse Practitioner Family
DX: E06.3 Autoimmune thyroiditis (principal); R00.0 Tachycardia, unspecified; E53.8 Deficiency of other specified B group vitamins; R79.89 Other specified abnormal findings of blood chemistry
CPT/HCPCS: 36415; 82607; 82652; 82728; 84436; 84439; 84443; 84481

== ENCOUNTER 2024-04-13 14:36 | Outpatient (CLI) | payer BC, SELFPAY ==
--- NOTE | 2024-04-13 14:41 | MM_ITS ---
PROCEDURE INFORMATION: Exam: MG Bilateral Screening 3D Mammography Exam date and time: 04/13/2024 2:34 PM Age: 44 years old Clinical indication: Screening examination TECHNIQUE: Imaging protocol: Bilateral Screening tomosynthesis and 2D mammography including computer-aided detection (CAD) when performed. COMPARISON: MG MM DIG MAMM BI DX W/CAD 06/25/2022 9:12 AM FINDINGS: MAMMOGRAPHY: Breast composition: The breasts are heterogeneously dense, which may obscure small masses. Mass: None. Architectural distortion: None. Calcifications: No suspicious calcifications. Asymmetric density: None. Skin thickening: None. Axillary adenopathy: None. IMPRESSION: No mammographic evidence of malignancy. Annual screening is recommended unless otherwise clinically indicated. ASSESSMENT: BI-RADS Category 1: Negative.
== END 2024-04-13 23:59 | disposition home or self-care (01) ==
LOC: RAD 14:37
PROVIDERS: PCP Nurse Practitioner Family; Visit Provider Nurse Practitioner Obstetrics & Gynecology
DX: Z12.31 Encounter for screening mammogram for malignant neoplasm of breast (principal)
CPT/HCPCS: 77063; 77067

== ENCOUNTER 2024-04-23 12:01 | Emergency (ER) | payer BC, SELFPAY ==
[2024-04-23 13:18] VITALS: BP 124/88; PULSE 73; RESP 19; TEMP 36.6; O2SAT 99; BMI 31.3
--- NOTE | 2024-04-23 13:23 | ED_ITS ---
Discharge Plan Prescriptions Prescriptions: No Action vitamin A99-[id number] B1 1,000-100 mg/mL solution 1 ml IM .every 2 weeks levothyroxine [Synthroid] 112 mcg tablet 125 mcg PO DAILY venlafaxine [Effexor XR] 150 mg capsule,extended release 24hr 150 mg PO DAILY Qty: 90 1RF Referrals Follow up/Referrals: Janna Gomez APRN [Primary Care Provider] - See instructions Activity Restrictions/Add. Instructions Additional Instructions/Restrictions: *Monitor Temp, Over the counter Motrin or Tylenol as directed/as needed Tylenol every 4 hours and Motrin every 6 hours (as long as your family doctor has told you that you can take it) for fever or pain. and straight to ER if unable to lower temp less than 101.0 after medication given *Warm salt water gargles may help to soothe the throat *Throat Lozenges? *Warm fluids like tea with honey may help to soothe the throat? *Sleep elevated *Humidifier/Vaporizer *Your throat swab was sent for culture. Those results are typically sent to your primary care. Be sure to follow up in 2-3 days with your family doctor/primary care physician if no improvement so they can review those result and treat if necessary. If you don?t have a primary care doctor, I recommend you get one but in the mean time, you will have to return to a walk in clinic Follow up IMMEDIATELY for new or worsening symptoms or no Noticeable improvement over the next 48-72 hours. 911 for difficulty breathing or swallowing Clinical Impressions Clinical Impression: Viral upper respiratory infection Instructions Patient Instructions: DI for Viral Upper Respiratory Infection -- Adult, Sore Throat Print Language Print Language: Russian Discharge ED Provider: Christine Almeida [facility] HPI General Stated complaint: h/a, body aches, sore throat, runny nose Mode of Arrival: Ambulatory Source of Information: Patient Time Seen by Provider: 04/23/24 13:24 Description of Symptoms (Recalled from Triage Doc. by RN): SORE THROAT, JARRETT, BODY ACHES, STUFFY NOSE HEENT Symptoms (Recalled from RN notes): Yes Resp Symptoms (Recalled from RN notes): Yes Skin Symptoms (Recalled from RN notes): No MS Symptoms (Recalled from RN notes): No Functional Status (Recalled from RN notes): WNL History of Present Illness Provider Complaint: Patient states that she started feeling bad on Tuesday with sore throat, runny nose, body aches, chills and over all not feeing well States today she wasnt feeling any better so she came in to get checked feels like she may have a sinus infection Related Data Home Medications ?Medication ?Instructions ?Recorded ?Confirmed vitamin T03-fhsqcfh B1 1,000 1 ml IM .every 2 weeks 02/04/23 04/23/24 mcg-100 mg/mL injection solution levothyroxine 112 mcg tablet 125 mcg PO DAILY 04/20/24 04/23/24 (Synthroid) Previous Rx's ?Medication ?Instructions ?Recorded venlafaxine 150 mg 150 mg PO DAILY #90 caps 03/02/24 capsule,extended release 24 hr (Effexor XR) Allergies Allergy/AdvReac Type Severity Reaction Status Date / Time No Known Allergies Allergy Verified 04/20/24 11:35 Worker's Comp Is this a Worker's Comp case?: [facility] Disclaimer: The information contained in this section may have been updated after the patient was seen, as this information can be updated by other users. Medical History Urinary tract infection Kidney stone Anxiety Generalized anxiety disorder Gastroesophageal reflux disease Dizziness Lightheaded Abnormal electrocardiography Surgical History History of hysterectomy History of appendectomy History of partial hysterectomy Social History Smoking Status: Former smoker (she quit about 4-5 years ago) tobacco type: cigarettes packs per day: 1 second hand exposure: No alcohol intake: never substance use type: denies use current occupational status: employed Travel in the last 8 weeks: Inside the [place] household members: spouse housing: house number of children: 4 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 [employer] current occupational exposures/hazards: No caffeine: Yes ROS Obtained: Yes All systems reviewed & no additional complaints except as documented and Yes Systems reviewed as appropriate & no additional complaints except as documented Constitutional Constitutional: Reports system reviewed and no additional complaints, except as documented, Reports as per HPI and Reports headache(s) ENT Ears, Nose, Mouth, and Throat: Reports system reviewed and no additional comp laints, except as documented, Reports as per HPI, Reports headache(s), Reports nasal congestion, Reports nasal discharge and Reports sore throat Cardiovascular Cardiovascular: Reports system reviewed and no additional complaints, except as documented and Reports as per HPI Respiratory Respiratory: Reports system reviewed and no additional complaints, except as documented and Reports as per HPI Gastrointestinal Gastrointestingal: Reports system reviewed and no additional complaints, except as documented and as per HPI Neurologic Neurologic: Reports headache(s) Physical Exam General General appearance: alert and in no apparent distress ENT ENT exam: Present mucous membranes moist Expanded ENT Exam Nose exam: Present other (reports greenish colored drainage); Absent sinus tenderness Throat exam: Present other (pharyngeal erythema noted with PND) Respiratory Respiratory exam: Present normal lung sounds bilaterally; Absent respiratory distress or wheezes Cardiovascular Cardiovascular exam: Present regular rate, normal rhythm and normal heart sounds Abdominal Exam Abdominal exam: Present soft and normal bowel sounds; Absent distention or tenderness Neurological Exam Neurological exam: Present alert, oriented X3 and normal gait Medical Decision Making Medical Records Screening: Per USPSTF and CDC recommendations, given the prevalence of disease in our region, it is our hospital?s policy to screen for HIV and viral Hepatitis for all patients aged 18 and over and those with ongoing risk factors. Klever Inquiry Pt receiving controlled substance: No Klever was queried for this patient: No Vital Signs: 04/23/24 13:18 Temperature 97.8 F Temperature Source Oral Pulse Rate [Left Radial] 73 Respiratory Rate 19 Blood Pressure [Left Arm] 124/88 Blood Pressure Mean [Left Arm] 100 02 Sat by Pulse Oximetry 99 Lab Data Lab results reviewed: Yes I reviewed the patient's lab results.
[2024-04-23 13:33] LABS: UTC Strep Screen (Rapid) Negative (Negative)
[2024-04-23 13:33] LABS: UTC Influenza A Antigen Negative (Negative)
[2024-04-23 13:34] LABS: UTC Influenza B Antigen Negative (Negative)
[2024-04-23 13:44] VITALS: BP 124/88; PULSE 73; RESP 19; TEMP 36.6
== END 2024-04-23 13:45 | disposition home or self-care (01) ==
LOC: UTC 12:03
PROVIDERS: Emergency Provider Nurse Practitioner; PCP Nurse Practitioner Family
DX: J06.9 Acute upper respiratory infection, unspecified (principal)
CPT/HCPCS: 87635; 87804; 87880; 99213; G0381

== ENCOUNTER 2024-04-26 13:46 | Emergency (ER) | payer BC, SELFPAY ==
[2024-04-26 13:50] VITALS: BP 135/87; PULSE 69; RESP 20; TEMP 36.8; O2SAT 100; BMI 32.0
--- NOTE | 2024-04-26 14:54 | EXP.UTC ---
Discharge Plan Disposition Patient Disposition: Home, Self-Care Condition: Good Prescriptions Prescriptions: New azithromycin [Zithromax] 250 mg tablet 250 mg PO UD DOSE PK Qty: 6 0RF Rx Instructions: Take two (2) tablets today, then one (1) tablet days #2 thru #5 benzonatate 100 mg capsule 100 mg PO TIDP PRN (Reason: Cough) Qty: 30 0RF methylprednisolone 4 mg Tablets,Dose Pack 4 mg PO DIRECTED 6 Days Qty: 21 0RF Rx Instructions: Take 1 pack as directed for 6 days No Action vitamin E16-uyoswkw B1 1,000-100 mg/mL solution 1 ml IM .every 2 weeks levothyroxine [Synthroid] 112 mcg tablet 125 mcg PO DAILY venlafaxine [Effexor XR] 150 mg capsule,extended release 24hr 150 mg PO DAILY Qty: 90 1RF Referrals Follow up/Referrals: Janna Gomez APRN [Primary Care Provider] - See instructions Activity Restrictions/Add. Instructions Additional Instructions/Restrictions: Drink plenty of fluids. Take tylenol or ibuprofen for pain or fever. Take the medications as directed. Follow up with your regular doctor. GO TO THE ER FOR ANY WORSENING SYMPTOMS Clinical Impressions Clinical Impression: Acute bronchitis, Acute sinusitis Instructions Patient Instructions: Sinusitis, DI for Sinusitis Print Language Print Language: Citizen Of [place] Discharge ED Provider: Cliff Glover [facility] General Stated complaint: headache, nausea, stuffy nose, cough Mode of Arrival: Ambulatory Source of Information: Patient Limitations: No Limitations Time Seen by Provider: 04/26/24 14:49 Description of Symptoms (Recalled from Triage Doc. by RN): PATIENT C/O HEADACHE, COUGH, NASAL CONGESTION, NAUSEA, AND WEAKNESS THAT STARTED TUESDAY. SHE STATES SHE WAS SEEN ON TUESDAY, BUT SHE IS NOT FEELING ANY BETTER HEENT Symptoms (Recalled from RN notes): Yes Resp Symptoms (Recalled from RN notes): Yes Skin Symptoms (Recalled from RN notes): No MS Symptoms (Recalled from RN notes): No Functional Status (Recalled from RN notes): WNL Related Data Home Medications ?Medication ?Instructions ?Recorded ?Confirmed vitamin Y68-nnktdyt B1 1,000 1 ml IM .every 2 weeks 02/04/23 04/23/24 mcg-100 mg/mL injection solution levothyroxine 112 mcg tablet 125 mcg PO DAILY 04/20/24 04/23/24 (Synthroid) Previous Rx's ?Medication ?Instructions ?Recorded venlafaxine 150 mg 150 mg PO DAILY #90 caps 03/02/24 capsule,extended release 24 hr (Effexor XR) azithromycin 250 mg tablet 250 mg PO UD DOSE PK #6 tabs 04/26/24 (Zithromax) benzonatate 100 mg capsule 100 mg PO TIDP PRN Cough #30 caps 04/26/24 methylprednisolone 4 mg tablets in 4 mg PO DIRECTED 6 days #21 tabs 04/26/24 a dose pack Allergies Allergy/AdvReac Type Severity Reaction Status Date / Time No Known Allergies Allergy Verified 04/20/24 11:35 Worker's Comp Is this a Worker's Comp case?: No [facility] Disclaimer: The information contained in this section may have been updated after the patient was seen, as this information can be updated by other users. Medical History Urinary tract infection Kidney stone Anxiety Generalized anxiety disorder Gastroesophageal reflux disease Dizziness Lightheaded Abnormal electrocardiography Surgical History History of hysterectomy History of appendectomy History of partial hysterectomy Social History Smoking Status: Former smoker (she quit about 4-5 years ago) tobacco type: cigarettes packs per day: 1 second hand exposure: No alcohol intake: never substance use type: denies use current occupational status: employed household members: spouse housing: house number of children: 4 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 current occupational exposures/hazards: No caffeine: Yes ROS Obtained: Yes All systems reviewed & no additional complaints except as documented Constitutional Constitutional: Reports poor appetite Eyes Eyes: Reports system reviewed and no additional complaints, except as documented ENT Ears, Nose, Mouth, and Throat: Reports as per HPI Cardiovascular Cardiovascular: Reports system reviewed and no additional complaints, except as documented and Denies chest pain Respiratory Respiratory: Denies shortness of breath, Reports chest congestion, Reports cough, Denies stridor and Denies wheezing Gastrointestinal Gastrointestingal: Reports system reviewed and no additional complaints, except as documented; Denies abdominal pain, diarrhea or vomiting Musculoskeletal Musculoskeletal: Reports system reviewed and no additional complaints, except as documented and Denies arthralgias Integumentary/Breasts Skin/Breast: Reports system reviewed and no additional complaints, except as documented and Denies rash Neurologic Neurologic: Denies paresthesias Allergic/Immunologic Allergic/Immunologic: Denies wheezing Physical Exam General General appearance: alert and in no apparent distress Head Head exam: atraumatic, normocephalic and normal inspection Eye Eye exam: Present normal appearance, PERRL and EOMI ENT ENT exam: Present normal exam, normal oropharynx, mucous membranes moist, TM's normal bilaterally and normal external ear exam Neck Neck exam: Present normal inspection, full ROM and trachea midline; Absent meningismus or lymphadenopathy Chest Chest inspection: Present normal inspection and symmetric chest wall rise; Absent tenderness Respiratory Respiratory exam: Present normal lung sounds bilaterally; Absent respiratory distress Cardiovascular Cardiovascular exam: Present regular rate and normal rhythm; Absent JVD Abdominal Exam Abdominal exam: Present soft and normal bowel sounds; Absent distention, tenderness or guarding Extremities Exam Extremities exam: Present normal inspection, full ROM and normal capillary refill; Absent calf tenderness Back Exam Back exam: Present normal inspection; Absent tenderness Neurological Exam Neurological exam: Present alert and oriented X3 Psychiatric Psychiatric exam: Present normal affect and normal mood Skin Skin exam: Present warm, dry, intact and normal color Lymphatic Lymphatic Findings: no adenopathy Medical Decision Making Medical Records Medical records reviewed: No I reviewed the patient's medical records. Screening: Per USPSTF and CDC recommendations, given the prevalence of disease in our region, it is our hospital?s policy to screen for HIV and viral Hepatitis for all patients aged 18 and over and those with ongoing risk factors. Klever Inquiry Pt receiving controlled substance: No Vital Signs: 04/26/24 13:50 Temperature 98.3 F Temperature Source Oral Pulse Rate [Left Brachial] 69 Respiratory Rate 20 Blood Pressure [Left Arm] 135/87 Blood Pressure Mean [Left Arm] 103 Blood Pressure Source [Left Arm] Automatic Cuff Blood Pressure Position [Left Arm] Sitting 02 Sat by Pulse Oximetry 100 Oxygen Delivery Method Room Air
[2024-04-26 15:07] VITALS: BP 135/87; PULSE 69; RESP 20; TEMP 36.8; O2SAT 100
== END 2024-04-26 15:10 | disposition home or self-care (01) ==
PROVIDERS: Emergency Provider Nurse Practitioner Family; PCP Nurse Practitioner Family
DX: J20.9 Acute bronchitis, unspecified (principal); J01.80 Other acute sinusitis
CPT/HCPCS: 99213; G0381

== ENCOUNTER 2024-05-11 11:46 | Outpatient (CLI) | payer BC, SELFPAY ==
[2024-05-11 12:31] LABS: Basophils # 0.1 K/mm3 (0-0.2); Eosinophils # 0.2 K/mm3 (0.0-0.4); Eosinophils % 2.8 % (0.1-12.0); Hematocrit 39.1 % (37.0-47.0); Lymphocytes # 1.5 K/mm3 (0.7-4.5); Mean Corpuscular HGB Conc 33.2 g/dL (31.8-35.4); Mean Corpuscular Hemoglobin 29.1 pg (27.0-31.2); Mean Corpuscular Volume 87.8 fl (81-99); Mean Platelet Volume 8.4 fl (7.4-10.4); Monocytes # 0.4 K/mm3 (0.1-1.0); Monocytes % 5.2 % (1.7-9.3); Neutrophils # 4.8 K/mm3 (1.8-7.8); Platelet Count 241 K/mm3 (142-424); Red Blood Count 4.45 M/mm3 (4.20-5.40); Red Cell Distribution Width 14.5 % (11.5-17.5); White Blood Count 6.9 K/mm3 (4.8-10.8)
[2024-05-11 12:59] LABS: Alanine Aminotransferase 18 U/L (12-78); Albumin/Globulin Ratio 1.5 (1.1-1.8); Alkaline Phosphatase 65 U/L (38-126); Aspartate Amino Transferase 25 U/L (14-36); Bilirubin,Total 0.4 mg/dl (0.2-1.3); Blood Urea Nitrogen 9 mg/dl (7-17); Calcium 9.2 mg/dl (8.4-10.2); Carbon Dioxide 27 mmol/L (22.0-30.0); Chloride 107 mmol/L (98-107); Estimated Glomerular Filt Rate 68 ml/min (>60); GFR (African American) 83 ML/MIN (>60); Globulin 2.6 g/dL (1.3-3.2); Glucose 81 mg/dl (74-100); Sodium 140 mmol/L (136-145); Total Protein,Serum 6.6 g/dl (6.3-8.2)
[2024-05-11 13:13] LABS: 25-OH Vitamin D, Total 32.4 ng/mL (30-100)
[2024-05-11 13:52] LABS: Vitamin B12 > 1000 pg/mL (239-931)
[2024-05-12 09:20] LABS: Progesterone 0.2 ng/mL (.)
[2024-05-18 00:14] LABS: Testosterone, Total, LC/MS 25.1 ng/dL (.)
== END 2024-05-11 23:59 | disposition home or self-care (01) ==
LOC: LAB 11:47
PROVIDERS: PCP Nurse Practitioner Family; Visit Provider Nurse Practitioner Family
DX: E53.8 Deficiency of other specified B group vitamins (principal); L75.0 Bromhidrosis; R79.89 Other specified abnormal findings of blood chemistry
CPT/HCPCS: 36415; 80053; 82306; 82607; 82670; 84144; 85025

== ENCOUNTER 2024-05-24 12:05 | Outpatient (CLI) | payer BC, SELFPAY ==
[2024-05-24 13:23] LABS: Free T4 (Free Thyroxine) 1.13 ng/dl (0.78-2.19)
[2024-05-24 13:38] LABS: Thyroid Stimulating Hormone 3.38 uIU/mL (0.465-4.68)
== END 2024-05-24 23:59 | disposition home or self-care (01) ==
LOC: LAB 12:05
PROVIDERS: PCP Nurse Practitioner Family; Visit Provider Internal Medicine
DX: E06.3 Autoimmune thyroiditis (principal); E03.8 Other specified hypothyroidism
CPT/HCPCS: 84439; 84443

== ENCOUNTER 2024-07-09 10:31 | Outpatient (CLI) | payer BC, SELFPAY ==
[2024-07-09 10:57] LABS: Basophils # 0.1 K/mm3 (0-0.2); Basophils % 1.1 % (0.1-2.0); Eosinophils # 0.2 K/mm3 (0.0-0.4); Hematocrit 39.4 % (37.0-47.0); Lymphocytes # 1.3 K/mm3 (0.7-4.5); Lymphocytes % 23.8 % (10-50); Mean Corpuscular Hemoglobin 28.7 pg (27.0-31.2); Monocytes # 0.3 K/mm3 (0.1-1.0); Monocytes % 4.6 % (1.7-9.3); Neutrophils # 3.6 K/mm3 (1.8-7.8); Neutrophils % 67.3 % (37.0-80.0); Platelet Count 273 K/mm3 (142-424); Red Blood Count 4.53 M/mm3 (4.20-5.40); Red Cell Distribution Width 13.1 % (11.5-17.5); White Blood Count 5.4 K/mm3 (4.8-10.8)
[2024-07-09 11:30] LABS: Alanine Aminotransferase 16 U/L (12-78); Albumin Level 4.3 g/dl (3.5-5.0); Albumin/Globulin Ratio 1.8 (1.1-1.8); Alkaline Phosphatase 76 U/L (38-126); Anion Gap 12.8 mEq/L (5-15); Aspartate Amino Transferase 23 U/L (14-36); Bilirubin,Total 0.2 mg/dl (0.2-1.3); Blood Urea Nitrogen 8 mg/dl (7-17); Calcium 8.7 mg/dl (8.4-10.2); Carbon Dioxide 25 mmol/L (22.0-30.0); Chloride 105 mmol/L (98-107); Chol/HDL Ratio 4.7 (1-3.5); Cholesterol 230 mg/dl (140-200); Estimated Glomerular Filt Rate 78 ml/min (>60); GFR (African American) 95 ML/MIN (>60); Globulin 2.4 g/dL (1.3-3.2); Glucose 103 mg/dl (74-100); HDL Cholesterol 49 mg/dl (40-60); Potassium 3.8 mmoL/L (3.5-5.1); Sodium 139 mmol/L (136-145); Total Protein,Serum 6.7 g/dl (6.3-8.2); Triglycerides 131 mg/dl (30-150); VLDL Cholesterol 26 mg/dL (0-40)
[2024-07-09 11:44] LABS: Direct LDL Cholesterol 142.87 mg/dL (100-129)
[2024-07-09 11:48] LABS: 25-OH Vitamin D, Total 36.9 ng/mL (30-100)
[2024-07-09 11:50] LABS: Free Thyroxine Index 2.7 ug/dL (5.93-13.13); T4 (Thyroxine) 9.6 ug/dl (5.53-11.0); Triiodothryronine (T3) Uptake 28 % (23.5-40.5)
[2024-07-09 12:04] LABS: Thyroid Stimulating Hormone 3.41 uIU/mL (0.465-4.68)
[2024-07-09 15:47] LABS: HIV Combo NEGATIVE (Negative)
[2024-07-09 15:57] LABS: Hepatitis C Ab Qual. W/ RFX NEGATIVE (Negative)
[2024-07-10 12:35] LABS: FSH 13.3 mIU/mL (.); LH 11.1 mIU/mL (.)
== END 2024-07-09 23:59 | disposition home or self-care (01) ==
LOC: LAB 10:32
PROVIDERS: PCP Nurse Practitioner Family; Visit Provider Nurse Practitioner Obstetrics & Gynecology
DX: Z01.419 Encounter for gynecological examination (general) (routine) without abnormal findings (principal); Z90.710 Acquired absence of both cervix and uterus
CPT/HCPCS: 36415; 80053; 80061; 82306; 83001; 83002; 84436; 84443; 84479; 85025; 86803; 87389

== ENCOUNTER 2024-12-31 07:14 | Outpatient (CLI) | payer BC, SELFPAY ==
--- OUTSIDE RECORDS SUMMARY | 2018-09-11 07:52 | XMS_ITS | Encounter Summary ---
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 Procedures US Thyroid Deepthi Lozano MD [address] [place] [address] Phone: tel: fax: [facility] [address] [place] [address] Phone: tel: fax: Referral ID Status Reason Start Date Expiration Date Visits Re quested Visits Authorized [id number] Closed 09/11/2018 09/11/2019 1 1 Encounter Details Date Type Department Care Team (Late st Contact Info) Description 09/11/2018 7:52 AM EDT Hospital Encounter [facility] [address] [place] [address] Social History Tobacco Use Types [...] Care Team (Late st Contact Info) Description 01/01/2025 12:15 PM EDT Office Visit [facility] [address] [place] [address] Deepthi Lozano MD [address] [place], [place] [id number] 02/11/2025 11:00 AM EDT Office Visit [facility] [address] [place] [address] Deepthi Lozano MD [address] [place], [place] [id number] documented as of this encounter Procedures Procedure Name Priority Date/Time Associated Diagnosis Comments US THYROID Routine 09/11/2018 7:52 AM EDT 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 Deepthi Lozano MD IMG US ORDERABLES Final Result documented in this encounter Visit Diagnoses Not on filedocumented in this encounter Additional Health Concerns Infection Onset Date Last Indicated Resolved Time COVID Screen (preop/placement) 03/10/2021 03/10/2021 03/10/2021 11:37 PM EDT documented as of this encounter Care Teams Block Making Machine Operator Relationship Specialty Start Date End Date Provider, [place] [address] PCP - General 09/11/18 09/22/18 documented as of this encounter
--- OUTSIDE RECORDS SUMMARY | 2024-12-31 07:17 | XMS_ITS | Clinical Summary ---
Author Organization [facility] Address [address] [place] [id number] Phone [email or web address] Care Team Providers Care Laborer Cutting Tool Name Role Phone Unavailable Primary Care Provider Unavailabl e Medications Synthroid 75 MCG tablet Take 75 mcg by mouth 1 (one) time each day. 01/27/2022 Active omeprazole (PriLOSEC) [address] capsule Take 40 mg by mouth once daily as needed. 09/04/2021 Active venlafaxine XR (EFFEXOR-XR) 150 MG 24 hr capsule Take 150 mg by mouth 1 (one) time each day. 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 Lower abdominal pain, unspecified 10/20/2017 Overview (02/18/2021): Otalgia, left ear 07/29/2017 Overview (02/18/2021): Left temporomandibular joint disorder, unspecifi ed 07/29/2017 Overview (02/18/2021): Low back pain 06/13/2017 Overview (02/18/2021): Other somatoform disorders 06/10/2017 Overview (02/18/2021): Anemia, unspecified 05/11/2017 Overview (02/18/2021): Allergic rhinitis, unspecified 05/10/2017 Overview (02/18/2021): Tobacco use 05/10/2017 Overview (02/18/2021): Unspecified abdominal pain 01/10/2017 Overview (02/18/2021): Anxiety disorder, unspecified 06/21/2016 Overview (02/18/2021): Hypothyroidism, unspecified 05/10/2016 Overview (02/18/2021): Amenorrhea, unspecified 04/05/2016 Overview (02/18/2021): Major depressive disorder, recurrent, mild 12/04 Overview (02/18/2021): Frequency of micturition 12/05/2015 Overview (02/18/2021): Ingrowing nail 10/01/2015 Overview (02/18/2021): Encounter for screening for malignant neoplasm o f cervix 06/30/2015 Overview (02/18/2021): Need for prophylactic vaccin ation and inoculation against influenza 03/28/2014 Overview (02/18/2021): Immunizations Immunization Administration Dates Next Due Influenza (Afluria Fluzone) quad (CVX-158) 03/28 Influenza (Flucelvax) MDCK, PF, quad (CVX-171) 1 06/12/2018,04/14/2018 Influenza multi-dose VIAL (A fluria,Fluzone) trivalent (CVX-141) 04/11/2015 Influenza single-dose SYRING E (Afluria, Fluarix, Fluzone, Flulaval) trivalent (CVX-140) 04/15/2016 Social History Tobacco Use Types Packs/Day Years Used Date Smoking Tobacco: Former Cigarettes Q uit: 04/12/2017 Comments:Smoking History Pac ks/day: 0 cigarettes Intimate Partner Violence Answer Date R ecorded Insults You Not on file 02/22/2021 Threatens You Not on file 02/22/2021 Screams at You Not on file 02/22/2021 Physically Hurt Not on file 02/22/2021 Intimate Partner Violence Score Not on file 02/22/2021 Stress Answer Date Recorded Stress in your Life Not on file 04/11/2024 Dealing with Stress 3 04/11/2024 Comments Unknown Sex and Gender Information Value Date Recorded Sex Assigned at Not on file Legal Sex Female 12:56 PM CDT Gender Identity Not on file Sexual Orientation Not on file Last Filed Vital Signs Vital Sign Reading Time Taken Comments Blood Pressure 128/82 03/11/2022 6:41 PM EDT Pulse 90 03/11/2022 6:41 PM EDT Temperature - - Respiratory Rate - - Oxygen Saturation - - Inhaled Oxygen Concentration - - Weight 68 kg (150 lb) 03/11/2022 6:41 PM EDT Height 157.5 cm (5' 2 ) 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 Body Mass Index 27.44 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 Plan of Treatment Health Maintenance Due Date Last Done Comments Dental Cleaning/Exam 1981 HIV Screening 1981 Hepatitis C Screening 1981 Cervical Cancer Screening 1997 Annual Preventive Exam 1999 Hep B Infection Screening - Triple Screen 1999 Hepatitis B Immunization (1 of 3 - 19+ 3-dose series) 02/29/2000 Tetanus Diphtheria and Pertussis Immunization (1 - Tdap) 02/29/2000 Breast Cancer Screening 2011 Covid-19 Immunization ( - 2023-25 season) 2024 Influenza Immunization (#1) 2025 11/0 12/2018, 04/14/2018, 04/15/2016, Additional history exists HIB Immunization Aged Out No longer e ligible based on patient's age to complete this topic HPV Immunization Aged Out No longer e ligible based on patient's age to complete this topic Hepatitis A Immunization Aged Out No longer eligible based on patient's age to complete this topic Pneumococcal: Ped (0 to 5 Yrs) and At-Risk Member (6 to 64 Yrs) Aged Out No longer eligible based on patient's age to complete this topic Polio Immunization Aged Out No longer eligible based on patient's age to complete this topic Varicella Immunization Aged Out No lo nger eligible based on patient's age to complete this topic
--- OUTSIDE RECORDS SUMMARY | 2024-12-31 07:17 | XMS_ITS | Data Portability ---
Author Organization [facility] Jimbo parekh, [facility] CLOSED Address [address] [place] [address] Care Team Providers Care Retail Special Event Associate Name Role Phone GERHARD LUCITA Primary Care Provider [phone] ROSMERY RETANA Airborne Weapons Technical Manager Assessment Encounter Date Assessment Date Assessment LastModified by Organization Details LastModified Time 04/17/2020 04/17/2020 Assessment: 1. Chronic pain 2. Chronic headache and posterior facial pain 3. Dental exam identified poorly fitting dentures Plan: 1. Dentist thinks poor denture fit causing pain 2. Patient plans new dentures with hope to stop head/jaw pain 3. I have not scheduled any follow up [email or web address] Not available 04/27/2020 11:32:22 12/04/2020 12/04/2020 1. Chronic pain 2. Paresthesia, face and right and left arms and hands 3. Good candidate for gabapentin 100 mg x 1 or 2 tid prn 4. Headaches have been much better 5. Chronic face pain, bilateral 6. Chronic arm pain, bilateral 7. Face and arm pain is constant 8. Dental exam identified poorly fitting dentures Plan: 1. Dentist thinks poor denture fit causing pain 2. Patient plans new dentures with hope to stop head/jaw pain 3. Continued gabapentin 100 mg x 1 or 2 tid prn face pain 4. Follow up in Jun 2021 [email or web address] Not available 01/16/2021 09:03:42 Plan of Treatment Reminders Order Date Submit Date Provider Last Modified By Organization Details Last Modified Time Details Appointments None recorded. Lab None recorded. Referral None recorded. Procedures None recorded. Surgeries None recorded. Imaging None recorded. Medication Orders gabapentin 100 mg capsule 2020 021 [facility], [address], [address], 15:46:58 Patient TargetsNo targets recorded. Patient Instructions Encounter Date Encounter Id Patient Instructions Last Modified By Organization Details Last Modified Time 04/17/2020 [id number] headache: care instructions [email or web address] Not available 04/17/2020 15:25:56 temporomandibula r disorder: care instructions [email or web address] Not available 04/17/2020 15:25:56 head or face swetha n: care instructions [email or web address] Not available 04/17/2020 15:25:56 Reason for Referral None Reported. Results Created Date Observation Date Name Description Value Unit Range Abnormal Flag Note LastModifiedBy Organization Detail LastModifiedTime 03/25/2003/25/2020 CBC w/ auto diff white blood cells 5.3 K/uL 3.8-10 .8 normal Not Available [facility] [address] [place] [address], [phone], 03/25/2020 10:32:44 03/25/2003/25/2020 CBC w/ auto diff red blood cells 4.69 M/uL 3.80-5 .20 normal Not Available [facility] [address] [place] [address], [phone], 03/25/2020 10:32:44 03/25/2003/25/2020 CBC w/ auto diff hemoglobin 14.5 g/dL 12.0-1 6.0 normal Not Available [facility] [address] [place] [address], [phone], 03/25/2020 10:32:44 03/25/2003/25/2020 CBC w/ auto diff hematocrit 41.2 % 35.0-4 7.0 normal Not Available [facility] [address] [place] [address], [address], 03/25/2020 10:32:44 03/25/2003/2503/25/2020 CBC w/ auto diff MCV 88 fL 80-100 normal Not Available [facility] [address] [place] [address], [address], 03/25/2020 10:32:44 03/25/2003/25/2020 CBC w/ auto diff MCH 31 pg 26-35 normal Not Available [facility] [address] [place] [address], [address], 03/25/2020 10:32:44 03/25/2003/25/2020 CBC w/ auto diff MCHC 35 g/dL 32-36 normal Not Available [facility] [address] [place] [address], [address], 03/25/2020 10:32:44 03/25/2003/25/2020 CBC w/ auto diff RDW 12.8 % 11.0-1 5.0 normal Not Available [facility] [address] [place] [address], [address], 03/25/2020 10:32:44 03/25/2003/25/2020 CBC w/ auto diff MPV 8.4 fL 6.2-10 .5 normal Not Available [facility] [address] [place] [address], [address], 03/25/2020 10:32:44 03/25/2003/25/2020 CBC w/ auto diff platelet count 202 K/uL 130-40 0 normal Not Available [facility] [address] [place] [address], [phone], 03/25/2020 10:32:44 03/25/2003/25/2020 CBC w/ auto diff neutrophil,a bsolute 3.8 K/uL 1.6-8. 4 normal Not Available [facility] [address] [place] [address], [address], 03/25/2020 10:32:44 03/25/2003/25/2020 CBC w/ auto diff lymphocyte,a bsolute 1.1 K/uL 0.4-5. 1 normal Not Available [facility] [address] [place] [address], [address], 03/25/2020 10:32:44 03/25/20 20 03/25/2020 CBC w/ auto diff monocyte,abs olute 0.3 K/uL 0.0-1. 2 normal Not Available [facility] [address] [place] [address], [address], 03/25/2020 10:32:44 03/25/20 20 03/25/2020 CBC w/ auto diff eosinophil,a bsolute 0.1 K/uL 0.0-0. 8 normal Not Available [facility] [address] [place] [address], [address], 03/25/2020 10:32:44 03/25/2003/25/2020 CBC w/ auto diff basophil,abs olute 0.0 K/uL 0.0-0. 3 normal Not Available [facility] [address] [place] [address], [address], 03/25/2020 10:32:44 03/25/2003/25/2020 CBC w/ auto diff % neutrophils 71.4 % 42.0-7 8.0 normal Not Available [facility] [address] [place] [address], [address], 03/25/2020 10:32:44 03/25/20 20 03/25/2020 CBC w/ auto diff % lymphocytes 21.1 % 11.0-4 7.0 normal Not Available [facility] [address] [place] [address], [address], 03/25/2020 10:32:44 03/25/20 20 03/25/2020 CBC w/ auto diff % monocytes 5.1 % 0.0-11 .0 normal Not Available [facility] [address] [place] [address], [address], 03/25/2020 10:32:44 03/25/2003/25/2020 CBC w/ auto diff % eosinophils 1.5 % 0.0-7. 0 normal Not Available [facility] [address] [place] [address], [address], 03/25/2020 10:32:44 03/25/2003/25/2020 CBC w/ auto diff % basophils 0.9 % 0.0-3. 0 normal Not Available [facility] [address] [place] [address], [address], 03/25/2020 10:32:44 03/25/2003/25/2020 CBC w/ auto diff nucleated red cells 0.0 % 0.0-0. 9 normal Not Available [facility] [address] [place] [address], [address], 03/25/2020 10:32:44 03/25/2003/25/2020 CBC w/ auto diff nucleated RBCs, absolute 0.00 K/uL not estab. normal Not Available [facility] [address] [place] [address], [address], 03/25/2020 10:32:44 03/25/2003/25/2020 CMP, serum or plasm a glucose 102 mg/dL 74-100 high Not Available [facility] [address] [place] [address], [address], 03/25/2020 10:54:21 03/25/2003/25/2020 CMP, serum or plasm a blood urea nitrogen 7 mg/dL 6-20 normal Not Available [facility] [address] [place] [address], [address], 03/25/2020 10:54:21 03/25/2003/25/2020 CMP, serum or plasm a creatinine 0.87 mg/dL 0.50-0 .95 normal Not Available [facility] [address] [place] [address], [address], 03/25/2020 10:54:21 03/25/202020 CMP, serum or plasm a BUN/creatini ne ratio 8 (calc ) 10-20 low Not Available [facility] [address] [place] [address], [address], 03/25/2020 10:54:21 03/25/2003/25/2020 CMP, serum or plasm a sodium 140 mmol/ L 136-14 5 normal Not Available [facility] [address] [place] [address], [address], 03/25/2020 10:54:21 03/25/2003/25/2020 CMP, serum or plasm a potassium 3.9 mmol/ L 3.4-5. 0 normal Not Available [facility] [address] [place] [address], [address], 03/25/2020 10:54:21 03/25/2003/25/2020 CMP, serum or plasm a chloride 103 mmol/ L 98-107 normal Not Available [facility] [address] [place] [address], [address], 03/25/2020 10:54:21 03/25/2003/25/2020 CMP, serum or plasm a carbon dioxide 26 mmol/ L 20-32 normal Not Available [facility] [address] [place] [address], [address], 03/25/2020 10:54:21 03/25/2003/25/2020 CMP, serum or plasm a anion gap 11 (calc ) 7-25 normal Not Available [facility] [address] [place] [address], [address], 03/25/2020 10:54:21 03/25/2003/25/2020 CMP, serum or plasm a calcium 9.4 mg/dL 8.6-10 .2 normal Not Available [facility] [address] [place] [address], [address], 03/25/2020 10:54:21 03/25/2003/25/2020 CMP, serum or plasm a total protein 7.6 g/dL 6.4-8. 3 normal Not Available [facility] [address] [place] [address], [address], 03/25/2020 10:54:21 03/25/2003/25/2020 CMP, serum or plasm a albumin 4.7 g/dL 3.5-5. 2 normal Not Available [facility] [address] [place] [address], [address], 03/25/2020 10:54:21 03/25/2003/25/2020 CMP, serum or plasm a globulin 2.9 g/dL_ (calc ) 1.5-4. 5 normal Not Available [facility] [address] [place] [address], [address], 03/25/2020 10:54:21 03/25/2003/25/2020 CMP, serum or plasm a albumin/glob ulin ratio 1.6 (calc ) 1.1-2. 5 normal Not Available [facility] [address] [place] [address], [address], 03/25/2020 10:54:21 03/25/2003/25/2020 CMP, serum or plasm a bilirubin, total 0.5 mg/dL 0.1-1. 2 normal Not Available [facility] [address] [place] [address], [address], 03/25/2020 10:54:21 03/25/2003/25/2020 CMP, serum or plasm a alkaline phosphatase 58 U/L 35-105 normal Not Available [facility] [address] [place] [address], [address], 03/25/2020 10:54:21 03/25/2003/25/2020 CMP, serum or plasm a AST 11 U/L 0-32 normal Not Available [facility] [address] [place] [address], [address], 03/25/2020 10:54:21 03/25/2025 0303/25/2020 CMP, serum or plasm a ALT 6 U/L 0-33 normal Not Available [facility] [address] [place], [address], 03/25/2020 10:54:21 03/25/20 20 03/25/2020 CMP, serum or plasm a GFR 97 >= 60 normal Not Available [facility] [address] [place] [address], [address], 03/25/2020 10:54:21 03/25/20 20 03/25/2020 CMP, serum or plasm a GFR non- 84 >= 60 normal NOT E NEW calcu latio n for GFR is based on the Natio nal Kidne y Found ation CKD-E PI equat ion and allow s for repor ting GFR value s great er than 60 mL/mi n/1.7 3 m2. This calcu latio n has not been valid ated for patie nts less than 18 yrs., pregn ant women and Hispa nics. Chron ic kidne y disea se is defin ed as kidne y damag e or GFR less than 60 mL/mi n/1.7 3 m2 for 3 month s or longe r. Not Available [facility] [address] [place] [address], [address], 03/25/2020 10:54:21 03/25/20 20 03/25/2020 ESR (eryt hrocy te sedim entat ion rate) , blood ESR, automated 9 mm/HR 0-19 normal Not Available [facility] [address] [place] [address], [address], 03/25/2020 11:41:39 04/17/2003/28/2020 MRI, brain , w/wo contr ast No observ ation record ed. BARCODE Not Available 2019 16:08:23 06/03/20 21 06/03/2021 MR brain and IAC w/wo contr ast [address] [place] [address] [facility] castle Name: YESENIAYAHAIRA castle : [address] Orderi ng Provid er: BONNIE Castle MAZIN EXAM DATE: 2020 EXAM: MR BRAIN AND IAC W/WO CONTRA ST HISTOR Y: 41-yea r-old female with dizzin ess and hearin g loss in the left ear. COMPAR RENÉE: None. The henry castle did not requir e sedati on for this exam. No POC testin g for eGFR was perfor med due to absenc e of risk factor s. FINDIN GS: The ventri cles are symmet henrique, and normal in size. There is no mass, mass effect , or midlin e shift. There is no abnorm al extra- axial fluid, intrac ranial hemorr aileen, or infarc tion. The diffus ion weight ed sequen agnieszka are normal . There are mild perive ntricu lar white matter change s. After intrav enous admini strati on of 7.[address] ([facility] [address]-0 1), there is no abnorm al enhanc ement in the brain. There is no mass or abnorm al enhanc ement along the crania l nerves or in the digital intern al audito ry canals . The digital intern al caroti d and basila r flow-v oids are normal . There is no mucosa l thicke se in the parana dyan sinuse s. The mastoi d air cells are clear. IMPRES ELLIE: 1. The brain is normal in appear ance. Interp reted By: Kerri staton MD Electr onical ly Signed By: Kerri staton MD on 2020 9:01 AM [facility] Radiology [facility] [address] [facility], [place], [address], 06/03/2021 11:03:31 Result Notes None recorded. Problems Name Problem SNOMED Code Status Onset Date Resolution Date Notes Provider Name and Address Organization Details Recorded Time Headache 02363421 Active 2019 Mercedes jorge [facility] 0 15:04:35 Pain in face 42932348 Active 2019 Mercedes jorge [facility] 0 10:14:04 Excessive caffeine intake 1457037887617 09 Active 2019 Mercedes Maguire [facility] 0 10:14:05 Jaw pain 817412000 Active 2019 Mercedes Maguire [facility] 0 10:14:06 Medication overuse headache 235091180 Active 2019 Mercedes Maguire [facility] 0 08:11:17 Chronic pain syndrome 708859793 Active 2019 Mercedesarthur Maguire [facility] 0 08:11:30 Muscle pain 44385124 Active 2019 Mercedesarthur Maguire [facility] 0 08:11:40 Temporomand ibular joint disorder 78954971 Active 2019 Mercedesarthur Maguire [facility] 0 08:11:52 Anxiety 70460255 Active 2019 Mercedesarthur Maguire [facility] 0 08:12:01 Not getting enough sleep 290588520 Active 2019 Mercedesarthur Maguire [facility] 0 08:12:11 Problem Notes None recorded. Procedures Surgical History Date Name Laterality Status Provider Name and Address Organization Details Recorded Time 05/20/20 Tympanogram completed [facility] 05/20/2021 14:14:21 05/20/20 21 Audiogram completed [facility] 05/20/2021 14:14:19 03/21/20 20 Endoscopy Nasal; Diagnostic completed ROSMERY RETANA MD [address] [place] [address], [phone], [facility] 03/21/2020 12:48:45 Appendectomy completed [facility] 03/21/2020 10:33:23 Partial hysterectomy completed [facility] 03/21/2020 10:33:34 Imaging Results None recorded. Procedure Notes None recorded. Medical Equipment None Reported. Allergies No known drug allergies Medications Name Sig Start Date Stop Date Status Note LastModified by Organization Details LastModified Time eq 12 hr muc tab 600 active Not Available Not Available Not Available fluconazol e 100 mg tablet active Not Available Not Available Not Available prednisone 10 mg tablet TAKE 1 TABLET BY MOUTH TWICE DAILY FOR 5 DAYS active Not Available Not Available No t Available azithromyc in 250 mg tablet active Not Available Not Available Not Available clarithrom ycin 500 mg tablet TAKE 1 TABLET BY MOUTH EVERY 12 HOURS FOR 10 DAYS active Not Available Not Available No t Available phenazopyr idine 200 mg tablet active Not Available Not Available No t Available prednisone 20 mg tablet TAKE 1 TABLET BY MOUTH TWICE DAILY FOR 5 DAYS 03/21 completed Not Available Not Available Not Available propranolo l ER 60 mg capsule,24 hr,extende d release TAKE 1 CAPSULE BY MOUTH ONCE DAILY active Not Available Not Available No t Available sulfametho xazole 800 mg-trimeth oprim 160 mg tablet TAKE 1 TABLET BY MOUTH EVERY 12 HOURS FOR 10 DAYS FOR CYSTITIS active Not Available Not Available No t Available ciclopirox 8 % topical solution APPLY SOLUTION TOPICALL Y ONCE DAILY active Not Available Not Available No t Available amoxicilli n 875 mg tablet active Not Available Not Available Not Available meclizine 25 mg tablet active Not Available Not Available Not Available benzonatat e 100 mg capsule TAKE 1 CAPSULE BY MOUTH THREE TIMES DAILY NEEDED FOR 14 DAYS active Not Available Not Available No t Available cephalexin 500 mg capsule TAKE 2 CAPSULES BY MOUTH EVERY 12 HOURS FOR 10 DAYS active Not Available Not Available No t Available tobramycin 0.3 % eye drops INSTILL 1 DROP INTO AFFECTED EYE EVERY 4 HOURS FOR 7 DAYS active Not Available Not Available No t Available Synthroid 88 mcg tablet TAKE 1 TABLET BY MOUTH ONCE DAILY active Not Available Not Available No t Available Synthroid 75 mcg tablet active Not Available Not Available Not Available Synthroid 50 mcg tablet Daily 03/21 completed Frequen cy: daily;M edicati on Descrip tion: levothy roxine; Dosage: 1; Route:o ral; refills :0; Quantit y:30 tablet Not Available Not Available Not Available sertraline 25 mg tablet TAKE 1 TABLET BY MOUTH ONCE DAILY FOR 30 DAYS active Not Available Not Available No t Available montelukas t 10 mg tablet TAKE 1 TABLET BY MOUTH ONCE DAILY FOR 30 DAYS 03/21 completed Not Available Not Available Not Available hydroxyzin e HCl 25 mg tablet TAKE 1 TABLET BY MOUTH EVERY 8 HOURS NEEDED active Not Available Not Available No t Available mupirocin 2 % topical ointment APPLY OINTMENT TOPICALL Y THREE TIMES DAILY FOR 7 DAYS active Not Available Not Available No t Available gabapentin 100 mg capsule TAKE 1 TO 2 CAPSULES BY MOUTH THREE TIMES DAILY AT MEALS; NOTE FOOD IS OPTIONAL NEEDED FOR FACE AND ARM TINGLING PARESTHE STEPHEN active Not Available Not Available No t Available methylpred nisolone 4 mg tablets in a dose pack TAKE BY MOUTH DIRECTED ON INSIDE OF PACKAGE active Not Available Not Available No t Available ondansetro n 4 mg disintegra ting tablet active Not Available Not Available Not Available cefdinir 300 mg capsule TAKE 1 CAPSULE BY MOUTH TWICE DAILY active Not Available Not Available No t Available fluticason e propionate 50 mcg/actuat ion nasal spray,susp ension USE 1 SPRAY(S) IN EACH NOSTRIL ONCE DAILY active Not Available Not Available No t Available sertraline 50 mg tablet TAKE 1 TABLET BY MOUTH ONCE DAILY 03/21 completed Not Available Not Available Not Available Sudogest 60 mg tablet TAKE 1 TABLET BY MOUTH EVERY 6 HOURS NEEDED FOR 14 DAYS 03/21 completed Not Available Not Available Not Available amoxicilli n 875 mg-potassi um clavulanat e 125 mg tablet TAKE 1 TABLET BY MOUTH EVERY 12 HOURS FOR 7 DAYS active Not Available Not Available No t Available Vitamin B-12 1,000 mcg tablet TAKE 1 TABLET BY MOUTH ONCE DAILY active Not Available Not Available No t Available tobramycin 0.3 %-dexameth asone 0.1 % eye drops,susp ension INSTILL 1 DROP INTO LEFT EYE 4 TIMES DAILY active Not Available Not Available No t Available nitrofuran toin monohydrat e/macrocry stals 100 mg capsule TAKE 1 CAPSULE BY MOUTH TWICE DAILY WITH FOOD FOR 10 DAYS active Not Available Not Available No t Available duloxetine 30 mg capsule,de layed release active Not Available Not Available Not Available Sharri-D 24 Hour 180 mg-240 mg tablet,ext ended release TAKE 1 TABLET BY MOUTH ONCE DAILY FOR 30 DAYS active Not Available Not Available No t Available Vitals Date Recorded Body height Body mass index (BMI) Body weight Provider Name and Address Organization Details Last Updated DateTime 06/09/2021 157.48 cm 24.5 kg/m2 67336.38 g [facility] 06/09/2021 16:44:39 Date Recorded Body height Body mass index (BMI) Body weight Systolic And Diastolic Provider Name and Address Organization Details Last Updated DateTime 12/04/2020 157.48 cm 24.5 kg/m2 18552.38 g 114/70 mm[Hg] Shaila Hunt [facility] 12/04/2020 15:19:49 Date Recorded Body height Body mass index (BMI) Body weight Systolic And Diastolic Provider Name and Address Organization Details Last Updated DateTime 04/17/2020 157.48 cm 25.2 kg/m2 29433.75 g 114/74 mm[Hg] Melissa Bhat [facility] 04/17/2020 15:20:31 Date Recorded Body height Body mass index (BMI) Body weight Heart rate Systolic And Diastolic Provider Name and Address Organization Details Last Updated DateTime 05/20/2021 157.48 cm 24.5 kg/m2 92292.38 g 72 /min 124/81 mm[Hg] Ute Kennedyluis [facility] 05/20/2021 14:00:19 Social History Question Answer Notes LastModified by Omnikles Details LastModified Time Tobacco Smoking Status Former Smoker Melissa Bhat [facility] 03/25/2020 09:05:07 How Much Tobacco Do You Chew? None [email or web address] Information not available 03/25/2020 Live Alone Or With Others? With Others Information not available 03/25/2020 Marital Status Elijah [email or web address] Informatio n not available 03/25/2020 What Was The Date Of Your Most Recent Tobacco Screening? 03/25/2020 [email or web address] Information not available 03/25/2020 How Much Tobacco Do You Smoke? 1 PPD [email or web address] Information not available 03/25/2020 On What Date Was Tobacco Cessation Counseling Provided? 03/25/2020 Information not available 03/25/2020 How Many Years Have You Smoked Tobacco? 20 [email or web address] Information not available 03/25/2020 Sex: Unknown Functional Status Question Answer Note LastModified by Calabrioizat ion Details LastModified Time What is your level of alcohol consumption? Occasional [email or web address] Information not available 03/25/2020 Do you or have you ever used smokeless tobacco? 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 Never used electronic cigarettes [email or web address] Information not available 03/25/2020 Mental Status None recorded. Family History Nothing Reported. Medical History Condition Response Parkinson's Disease N Alzheimer's N Migraines N Glaucoma N Depression N Neurological Problems N Anxiety Disorder Y Diabetes N Arthritis N Tuberculosis N Cancer N Stroke N High Cholesterol N Heart Disease N Hypertension N Gynecological HistoryNo gynecological history recorded. Obstetrics History GPAL:G 0 P 0 0 0 0 Immunizations Vaccine Type Date Status Note Provider Nam e and Address Organization Details Recorded Time SARS-COV-2 (COVID-19) vaccine, UNSPECIFIED 1 completed Shaila Hunt [facility] 12/04/2020 15:14:40 SARS-COV-2 (COVID-19) vaccine, UNSPECIFIED 1 completed Shaila Hunt [facility] 12/04/2020 15:14:44 Influenza, split virus, quadrivalent, preservative 0 completed Shailacarlito Hunt [facility] 12/04/2020 15:14:55 Past Encounters Encounter ID Performer Location Encounter Start Date Encounter Closed Date Diagnosis/Indication Diagnosis SNOMED-CT Code Diagnosis ICD10 Code Diagnosis Note [id number] [place] [address] [place] [phone] 03/21/2020 10:09:34 03/21/2020 13:01:01 Headache 10347272 R51.9 has had a negative sinus CT and negative allergy testing. Has not responded to antibiotic therapy or antihistam nae. Nasal endoscopy is normal. I don't think this is related to her sinuses. I would like an opinion from Dr Ortiz. She has a severe left nasal septal deviation which could cause rhinogenic headaches. She will follow-up with me if not improved after Dr Ortiz's evaluation and treatment Deviated nasal septum 12 0672881 J34.2 [id number] TRENT ORTIZ MD NEUROLOGY [facility] [address] [place] [id number] 03/25/2020 08:34:08 03/25/2020 10:03:19 Headache 48741579 R51.9 Pain in face 00870000 R5 1.9 Excessive caffeine intake 3473887155 55368 R63.8 Jaw pain 811684223 R68.8 4 Medication overuse headache 941421820 G44.40 Chronic pain syndrome 37 0967171 G89.4 Muscle pain 97088003 M79 .10 Temporoman dibular joint disorder 20986291 M26.609 Anxiety 94037051 F41.9 Not gettin g enough sleep 817480481 F51.12 [id number] TRENT ORTIZ MD NEUROLOGY [facility] [address] [place] [address] 04/17/2020 15:01:29 04/17/2020 15:51:10 Headache [id number] R51.9 Pain in face 10005756 R5 1.9 Excessive caffeine intake [id number] 45892 R63.8 Jaw pain 704987457 R68.8 4 Medication overuse headache 431265529 G44.40 Chronic pain syndrome 37 4116074 G89.4 Muscle pain 11396599 M79 .10 Temporoman dibular joint disorder 06471582 M26.609 Anxiety 49387811 F41.9 Not gettin g enough sleep 822837420 F51.12 Chronic he adache disorder 304214661 G44.89 Denture loose 819971932 K08.59 [id number] TRENT ORTIZ MD NEUROLOGY SB CLOSED [address] [place] [address] 12/04/2020 14:33:54 12/04/2020 15:48:33 Chronic pain syndrome 370400759 G89.4 Paresthesi a of upper limb 77007615 R20.2 Headache 88841249 R51.9 Chronic pain in face 432 303576 R51.9 Paresthesia 87576613 R20 .2 Long-term current use of drug therapy 654401259 Z79.621 [id number] ROSMERY RETANA MD ENT SB [address] [place] [address] 05/20/2021 13:47:29 05/20/2021 15:22:28 Dizziness 463321198 R42 Audiogram performed and interprete d. Hearing is within normal limits but slightly lower on the left. MRI to rule out an acoustic neuroma. Etiology is not likely related to the ears however given the asymmetry of acoustic neuroma is in the differenti al. Potentiall y could be an unusual reaction to her covid vaccinatio n.. f/u after imaging. Sensorineu ral hearing loss in left ear [id number] 9109 H90.42 [id number] NA QUINN ENT [address] [place] [address] 05/20/2021 14:13:22 05/20/2021 16:52:27 Hearing examination 152746485 Z01.10 [id number] ROSMERY RETANA MD ENT [address] [place] [address] 06/09/2021 16:43:44 06/09/2021 17:22:50 Dizziness 148174572 R42 MRI reviewed. No acoustic neuroma. Will set her up for vestibular rehab. Sensorineu ral hearing loss in left ear [id number] 9109 H90.42 Previous audiogram again reviewed Health Concerns Section Related Observation LastModified by Organization Detai ls LastModified Time None Recorded Concern Status LastModified by Organization Details LastModified Time None Recorded Advance Directives Directive None Recorded Payers Insurance Date Sequence Insurance Name Policy Number Policy Cross Covered Member ID Cross Member ID Guarantor Name 08/09/2018 1 *SELF PAY* Ron Choudhary 06/06/2021 1 [place] [id number] Yesenia Choudhary [id number] Yesenia Choudhary OBGyn Episode No OBEpisode recorded.
--- OUTSIDE RECORDS SUMMARY | 2024-12-31 07:17 | XMS_ITS | Clinical Summary ---
Author Organization [facility] Address [address] [place] [address] Care Team Providers Care Pillar Worker Name Role Phone Janna Gomez LIZ Primary Care Provider [phone] Allergies No known active allergies Social History Tobacco Use Types Packs/Day Years Used Date Smoking Tobacco: Former Smokeless Tobacco: Never Alcohol Use Standard Drinks/Week Comments Not Currently 0 (1 standard drink = 0.6 oz pur e alcohol) Socially Comments Unknown Sex and Gender Information Value Date Recorded Sex Assigned at Not on file Legal Sex Female 8:34 PM EDT Gender Identity Not on file Sexual Orientation Not on file Last Filed Vital Signs Vital Sign Reading Time Taken Comments Blood Pressure 134/88 02/09/2021 6:09 PM EDT Pulse 67 02/09/2021 9:45 PM EDT Temperature 36.8 C (98.3 F) 02/09/2021 6:09 PM EDT Respiratory Rate 16 02/09/2021 9:45 PM EDT Oxygen Saturation 98% 02/09/2021 9:45 PM EDT Inhaled Oxygen Concentration - - Weight 59.4 kg (131 lb) 02/09/2021 6:26 PM EDT Height 157.5 cm (5' 2 ) 02/09/2021 6:26 PM EDT Body Mass Index 23.96 02/09/2021 6:26 PM EDT Plan of Treatment Health Maintenance Due Date Last Done Comments [facility]-Depression Screening 1981 [facility]-Infant/Child/Adol SDOH Screenings 1981 [facility]-Varicella Vaccines (1 of 2 - 13+ 2-dose series) 1994 HPV Vaccines (1 - 3-dose series) 02/29/1996 [facility]- SDOH Screenings 1999 [facility]-Adult SDOH Screenings 1999 [facility]-Hepatitis B Vaccines (1 of 3 - 19+ 3-dose series) 02/29/2000 [facility]-Pap Smear 2002 [facility]-Cervical Cancer Screening 2011 [facility]-HPV/Cotest 2011 [facility]-DTaP,Tdap,and Td Vaccines (2 - Td or Tdap) 04/07/2016 04/07/2006 [id number] Vaccine (3 - 2023- season) 2024 10/01/2020, 09/03/2020 [facility]-Influenza Vaccine (#1) 2025 02/05/2020 [facility]-Zoster Vaccines (1 of 2) 2031 [facility]-HIB Vaccines Aged Out No longer e ligible based on patient's age to complete this topic [facility]-Hepatitis A Vaccines Aged Out No longer eligible based on patient's age to complete this topic [facility]-IPV Vaccines Aged Out No longer e ligible based on patient's age to complete this topic [facility]-Pneumococcal Vaccine: Pediatrics (0 to 5 Years) and At-Risk Patients (6 to 49 Years) Aged Out No longer eligible b ased on patient's age to complete this topic [facility]-Rotavirus Vaccines Aged Out No lo nger eligible based on patient's age to complete this topic Insurance ANTH Care Teams Pillar Worker Relationship Specialty Start Date End Date Janna Gomez LIZ [address] [place] [address] PCP - General 02/09/21
--- OUTSIDE RECORDS SUMMARY | 2024-12-31 07:17 | XMS_ITS | Clinical Summary ---
Author Organization [facility] y[facility] Address [address] [place] [address] Care Team Providers Care Centrifuge Operator Name Role Phone Jason Janna HILL Primary Care Provider [phone] Allergies No known active allergies Medications Cyanocobalamin (B-12 COMPLIANCE INJECTION IJ) Inject as directed Every 14 (Fourteen) Days. Active venlafaxine XR (EFFEXOR-XR) 150 MG 24 hr capsule 1 capsule Daily. 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 Overview (08/19/2021): Tobacco use 05/10/2017 Overview (08/19/2021): Allergic rhinitis, unspecified 05/10/2017 Overview (08/19/2021): Anxiety disorder, unspecified 06/21/2016 Overview (08/19/2021): Major depressive disorder, recurrent, mild 12/04 Overview (08/19/2021): Resolved Problems Problem Noted Date Diagnosed Date Resolved Date Simple goiter 09/24/2018 03/12/2019 Family History Medical History Relation Name Comments Hypertension Father Cancer Maternal Grandmother Diabetes Mother Hypothyroidism Mother Relation Name Status Comments Father Alive Maternal Grandmother Mother Alive Social History Tobacco Use Types Packs/Day Years Used Date Smoking Tobacco: Former Cigarettes Q uit: 2016 Smokeless Tobacco: Never Tobacco Cessation:Counseling Given: Not Answered Alcohol Use Standard Drinks/Week Comments No 0 [...] Sign Reading Time Taken Comments Blood Pressure 120/74 04/11/2023 2:50 PM EST Pulse 68 04/11/2023 2:50 PM EST Temperature 36.5 C (97.7 F) 08/19/2021 2:19 PM EDT Respiratory Rate - - Oxygen Saturation 95% 04/11/2023 2:50 PM EST Inhaled Oxygen Concentration - - Weight 78.5 kg (173 lb) 04/11/2023 2:50 PM EST Height 157.5 cm (5' 2 ) 04/11/2023 2:50 PM EST Body Mass Index 31.64 04/11/2023 2:50 PM EST Plan of Treatment Upcoming Encounters Date Type Department Care Team (Late st Contact Info) Description 01/01/2025 12:15 PM EDT Office Visit [facility] ENDOCRINOLOGY [address] [place] [id number] Deepthi Lozano MD [address] [facility] [address] [place], [place] [id number] 02/11/2025 11:00 AM EDT Office Visit [facility] ENDOCRINOLOGY [address] [place] [address] Deepthi Lozano MD [address] [place], [place] [id number] Health Maintenance Due Date Last Done Comments Annual Gynecologic Pelvic and Breast Exam 1981 TDAP/TD VACCINES (2 - Td or Tdap) 04/07/2016 04/07/2006 ANNUAL PHYSICAL 09/11/2018 HEPATITIS C SCREENING 09/11/2018 MAMMOGRAM 2021 COVID-19 Vaccine ( season) 2024 10/01/2020, 09/03/2020, 08/04/2020 INFLUENZA VACCINE 03/06/2025 02/05/2020, , 04/14/2018, Additional history exists Pneumococcal Vaccine 0-49 Aged Out No longer eligible based on patient's age to complete this topic Insurance [facility] PPO Care Teams Centrifuge Operator Relationship Specialty Start Date End Date Janna Gomez APRN PCP - General Internal Medicine 09/23/18
--- OUTSIDE RECORDS SUMMARY | 2024-12-31 07:17 | XMS_ITS | Encounter Summary ---
Author Organization [facility] y[facility] Address [address] [id number] Care Team Providers Care Morning Show Newscast Producer Name Role Phone Janna Gomez APRN Primary Care Provider [phone] Encounter Details Date Type Department Care Team (Late st Contact Info) Description 09/07/2024 Results Follow-Up [facility] ENDOCRINOLOGY [address] [place] [address] Deepthi Lozano MD [address] [place] [address] Social History Tobacco Use Types Packs/Day Years [...] on file documented as of this encounter Plan of Treatment Upcoming Encounters Date Type Department Care Team (Late st Contact Info) Description 01/01/2025 12:15 PM EDT Office Visit [facility] ENDOCRINOLOGY [address] [place] [address] Deepthi Lozano MD [address] [place] [address] 02/11/2025 11:00 AM EDT Office Visit [facility] ENDOCRINOLOG[facility] [address] [address] Deepthi Lozano MD [address] [address] documented as of this encounter Visit Diagnoses Diagnosis 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
[2024-12-31 08:03] LABS: Hematocrit 37.3 % (37.0-47.0); Hemoglobin 12.1 g/dL (12.2-16.2); Immature Granulocytes % 0.5 %; Mean Corpuscular HGB Conc 32.4 g/dL (31.8-35.4); Mean Corpuscular Hemoglobin 28.5 pg (27.0-31.2); Mean Corpuscular Volume 87.8 fl (81-99); Nucleated Red Blood Cells % 0 %; Platelet Count 250 K/mm3 (142-424); Red Blood Count 4.25 M/mm3 (4.20-5.40); Red Cell Distribution Width-SD 42.7 fL; White Blood Count 6.3 K/mm3 (4.8-10.8)
[2024-12-31 10:04] LABS: Vitamin B12 759 pg/mL (239-931)
[2024-12-31 11:52] LABS: Ferritin 12.1 ng/ml (6.24-137)
== END 2024-12-31 23:59 | disposition home or self-care (01) ==
LOC: LAB 07:15
PROVIDERS: PCP Nurse Practitioner Family; Visit Provider Nurse Practitioner Family
DX: D64.9 Anemia, unspecified (principal); E53.8 Deficiency of other specified B group vitamins
CPT/HCPCS: 36415; 82607; 82728; 85025

== ENCOUNTER 2025-01-17 07:54 | Outpatient (CLI) | payer BC, SELFPAY ==
--- OUTSIDE RECORDS SUMMARY | 2018-09-11 07:52 | XMS_ITS | Encounter Summary ---
[facility] Address [address] [place] [address] Care Team Providers Care Sr. 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 Procedures US Thyroid Deepthi Lozano MD [address] [place] [address] Phone: tel: fax: [facility] [address] [place] [address] Phone: tel: fax: Referral ID Status Reason Start Date Expiration Date Visits Re quested Visits Authorized [id number] Closed 09/11/2018 09/11/2019 1 1 Encounter Details Date Type Department Care Team (Late st Contact Info) Description 09/11/2018 7:52 AM EDT Hospital Encounter [facility] [address] [place] [address] Social History Tobacco Use Types [...] Description 07/08/2025 11:30 AM EST Office Visit [facility] [address] [place] [address] Deepthi Lozano MD [address] [place] [address] documented as of this encounter Procedures Procedure [...] documented as of this encounter Care Teams Sr. Director Relationship Specialty Start Date End Date Provider, [place] [address] PCP - General 09/11/18 09/22/18 documented as of this encounter
--- OUTSIDE RECORDS SUMMARY | 2025-01-01 12:15 | XMS_ITS | Encounter Summary ---
[facility] Organization [facility] Address [address] [place] [address] Care Team Providers Care Physician Practice Market Manager Name Role Phone Jason Janna LIZ Primary Care Provider [phone] Reason for Visit * Reason Comments Hypothyroidism due to Adalid's thyroi ditis Follow up Encounter Details Date Type Department Care Team (Late st Contact Info) Description 01/01/2025 12:15 PM EDT Office Visit [facility] ENDOCRINOLOGY [address] [place] [address] Deepthi Lozano MD [address] [place] [address] 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 [...] 12:09 PM EDT documented in this encounter Plan of Treatment Upcoming Encounters Date Type Department Care Team (Late st Contact Info) Description 07/08/2025 11:30 AM EST Office Visit [facility]CR[facility] [address] [place] [address] Deepthi Lozano MD [address] [place] [address] Scheduled Orders Name Type Priority Associated Diagnoses [...] - 1.68 ng/dL 01/01/2025 11:50 PM EDT [facility] Blood Structure of left upper limb / Unknown Venipuncture / Unknown 01/01/2025 12:38 PM EDT 01/01/2025 12:38 PM EDT us Deepthi Lozano MD LAB BLOOD ORDERABLES Final Resul t [facility]
[address] [place] [address], [place] [phone] * (ABNORMAL) TSH (01/01/2025 12:38 PM EDT) TSH 11.000(H) 0.270 - 4.200 uIU/mL 01/01/2025 11:51 PM EDT [facility] Blood Structure of left upper limb / Unknown Venipuncture / Unknown 01/01/2025 12:38 PM EDT 01/01/2025 12:38 PM EDT us Deepthi Lozano MD LAB BLOOD ORDERABLES Final Resul t [facility]
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
--- OUTSIDE RECORDS SUMMARY | 2025-01-17 07:57 | XMS_ITS | Clinical Summary ---
Author Organization [facility] ystem Address [address] [place] [address] Care Team Providers Care Staker Surveying Name Role Phone Jason Janna HILL Primary Care Provider [phone] Allergies No known active allergies Medications Cyanocobalamin (B-12 COMPLIANCE INJECTION IJ) Inject as directed Every 14 (Fourteen) Days. Active venlafaxine XR (EFFEXOR-XR) 150 MG 24 hr capsule 1 capsule Daily. 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 New dose. 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 30 tablet 5 5 01/03/20 25 Discontinu ed(Dose adjustment ) Active Problems Problem Noted Date Diagnosed Date [...] Date Resolved Date Simple goiter 09/24/2018 03/12/2019 Encounters Date Type Department Care Team Description 01/03/2025 Telephone [facility] ENDOCRINOLOGY [address] [place] [address] Deepthi Lozano MD 01/02/2025 Results Follow-Up [facility] ENDOCRINOLOGY [address] [place] [address] Deepthi Lozano MD 01/01/2025 12:15 PM EDT Office Visit [facility] ENDOCRINOLOGY [address] [place] [address] Deepthi Lozano MD 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 (Primary Dx) 01/01/2025 Travel from Last 3 Months Family History Medical History Relation Name Comments Hypertension Father Cancer Maternal Grandmother Diabetes Mother Hypothyroidism Mother Relation Name Status Comments Father Alive Maternal Grandmother Mother Alive Social History Tobacco Use Types Packs/Day Years Used Date Smoking Tobacco: Former Cigarettes Q uit: 2017 Smokeless Tobacco: Never Tobacco Cessation:Counseling Given: Not [...] Pulse 91 01/01/2025 12:09 PM EDT Temperature 36.5 C (97.7 F) 08/19/2021 2:19 PM EDT Respiratory Rate - - Oxygen Saturation 99% 01/01/2025 12:09 PM EDT Inhaled Oxygen Concentration - - Weight 83.1 kg (183 lb 3.2 oz) 01/01/2025 12:09 PM EDT Height 157.5 cm (5' 2 ) 01/01/2025 12:09 PM EDT Body Mass Index 33.51 01/01/2025 12:09 PM EDT Plan of Treatment Upcoming Encounters Date Type Department Care Team (Late st Contact Info) Description 07/08/2025 11:30 AM EST Office Visit [facility] ENDOCRINOLOGY [address] [facility] [address] [place] [address] Deepthi Lozano MD [address] [facility] [address] [place] [address] Health Maintenance Due Date Last Done Comments Annual Gynecologic Pelvic and Breast Exam 1981 TDAP/TD VACCINES (2 - Td or Tdap) 04/07/2016 04/07/2006 ANNUAL PHYSICAL 09/11/2018 HEPATITIS C SCREENING 09/11/2018 COVID-19 Vaccine ( season) 2024 10/01/2020, 09/03/2020, 08/04/2020 MAMMOGRAM 06/03/2024 06/03/2022, 06/03/2022 INFLUENZA VACCINE 03/06/2025 02/05/2020, , 04/14/2018, Additional history exists Pneumococcal Vaccine 0-49 Aged Out No longer eligible based on patient's age to complete this topic Procedures Procedure Name Priority Date/Time Associated Diagnosis Comments T4, FREE Routine 01/01/2025 12:38 PM EDT 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 TSH Routine 01/01/2025 12:38 PM EDT 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
[address] [place] [address], * (ABNORMAL) T4, Free (01/01/2025 12:38 PM EDT) Free T4 0.87(L) 0.92 - 1.68 ng/dL 01/01/2025 11:50 PM EDT [facility] Blood Structure of left upper limb / Unknown Venipuncture / Unknown 01/01/2025 12:38 PM EDT 01/01/2025 12:38 PM EDT us Deepthi Lozano MD LAB BLOOD ORDERABLES Final Resul t [facility]
[address] [place] [address], * MAMMO Outside Films (06/03/2022 10:09 AM EST) Narrative SYSTEMGENERATED, DOCUMENTATION - 06/03/2022 10:09 AM EST This procedure was auto-finalized with no dictation required. Janna Gomez APRN IMG MAMMOGRAPHY ORDERABLES F inal Result from Last 3 Months or Most Recently Relevant to Health Maintenance Insurance [employer] [facility] PPO Care Teams Staker Surveying Relationship Specialty Start Date End Date Janna Gomez APRN PCP - General Internal Medicine 09/23/18
--- OUTSIDE RECORDS SUMMARY | 2025-01-17 07:57 | XMS_ITS | Encounter Summary ---
Author Organization [facility] ystem Address [address] [place] [id number] Care Team Providers Care Center Aisle Cashier Name Role Phone Janna Gomez APRN Primary Care Provider [phone] Encounter Details Date Type Department Care Team (Late st Contact Info) Description 01/03/2025 Telephone [facility] ENDOCR[facility] [address] [place] [address] Deepthi Lozano MD [address] [place] [address] Social History Tobacco Use Types Packs/Day Years [...] on file documented as of this encounter Miscellaneous Notes * Telephone Encounter - Halima More) - 01/03/2025 10:56 AM EDT Mailed order to pt * Telephone Encounter - Halima More) - 01/03/2025 10:56 AM EDT ----- Message from Deepthi Lozano sent at 01/02/2025 5:04 PM EDT ----- Regarding: mail lab order Please mail lab order for TSH to patient. Printed to [id number]. Thanks MD documented in this encounter Plan of Treatment Upcoming Encounters Date Type Department Care Team (Late st Contact Info) Description 07/08/2025 11:30 AM EST Office Visit [facility] END[facility] [address] [facility] [address] [place] [phone] Deepthi Lozano MD [address] [facility] [address] [place] [address] documented as of this encounter Visit Diagnoses Not on filedocumented in this encounter Care Teams Center Aisle Cashier Relationship Specialty Start Date End Date Janna Gomez APRN PCP - General Internal Medicine 09/23/18 documented as of this encounter
--- OUTSIDE RECORDS SUMMARY | 2025-01-17 07:57 | XMS_ITS | Encounter Summary ---
[facility] Address [address] [place] [id number] Care Team Providers Care Loom Repairer Name Role Phone Janna Gomez APRN Primary Care Provider [phone] Encounter Details Date Type Department Care Team (Latest Contact Info) Description 01/01/2025 Travel Social History Tobacco Use Types Packs/Day Years [...] Description 07/08/2025 11:30 AM EST Office Visit [facility] ENDOCRINOLOGY [address] [place] [address] Deepthi Lozano MD [address] [place] [address] documented as of this encounter Visit Diagnoses Not on filedocumented in this encounter Care Teams Loom Repairer Relationship Specialty Start Date End Date Janna Gomez APRN [phone] (work) PCP - General Internal Medicine 09/23/18 documented as of this encounter
--- OUTSIDE RECORDS SUMMARY | 2025-01-17 07:57 | XMS_ITS | Encounter Summary ---
Author Organization [facility] ystem Address [address] [place] [address] Care Team Providers Care Motor And Generator Brush Maker Name Role Phone Janna Gomez APRN Primary Care Provider [phone] Encounter Details Date Type Department Care Team (Late st Contact Info) Description 01/02/2025 Results Follow-Up [facility] ENDOCRINOLOGY [address] [place] [address] Deepthi Lozano MD [address] [place] [address] Social History Tobacco Use Types [...] Visit [facility] ENDOCRIN[facility] [address] [place] [address] Deepthi Lozano MD [address] [place] [address] documented as of this encounter Visit Diagnoses Not on filedocumented in this encounter Care Teams Motor And Generator Brush Maker Relationship Specialty Start Date End Date Janna Gomez APRN PCP - General Internal Medicine 09/23/18 documented as of this encounter
--- OUTSIDE RECORDS SUMMARY | 2025-01-17 07:57 | XMS_ITS | Clinical Summary ---
Author Organization [employer] [facility] Address [address] [place] [id number] Phone [email or web address] Care Team Providers Care Art Sales Consultant Name Role Phone Unavailable Primary Care Provider [...] cm (5' 2 ) 06/08/2019 12:00 AM PROGRAM MANAGER ENVIRONMENTAL PLANNING Body Mass Index 27.44 06/08/2019 12:00 AM PROGRAM MANAGER ENVIRONMENTAL PLANNING Plan of Treatment Health Maintenance Due Date Last Done Comments Cervical Cancer Screening Combo 1981 Dental Cleaning/Exam 1981 HIV Screening 1981 HPV / Cotest 1981 Hepatitis C Screening 1981 Pap Testing 1981 HPV Immunization (1 - 2-dose series) 02/29/1992 Annual Preventive Exam 1999 Hep B Infection Screening - Triple Screen 1999 Hepatitis B Immunization (1 of 3 - 19+ 3-dose series) 02/29/2000 Tetanus Diphtheria and Pertussis Immunization (1 - Tdap) 02/29/2000 Breast Cancer Screening 2011 Covid-19 Immunization ( season) 2024 Influenza Immunization (#1) 02/04/202512/2018, 04/14/2018, 04/15/2016, Additional history exists HIB Immunization [...]
--- OUTSIDE RECORDS SUMMARY | 2025-01-17 07:57 | XMS_ITS | Encounter Summary ---
Author Organization [facility] ystem Address [address] [place] [phone] Care Team Providers Care Security Messenger Name Role Phone Janna Gomez APRN Primary Care Provider [phone] Encounter Details Date Type Department Care Team (Late st Contact Info) Description 09/07/2024 Results Follow-Up [facility] ENDOCRINOLOGY [address] [place] [address] Deepthi Lozano MD [address] [place] [address] Social History Tobacco Use Types [...] Description 07/08/2025 11:30 AM EST Office Visit [facility] ENDOCRINOLOGY [address] [place] [address] Deepthi Lozano MD [address] [place] [address] documented as of this encounter Visit Diagnoses Diagnosis 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
--- OUTSIDE RECORDS SUMMARY | 2025-01-17 07:57 | XMS_ITS | Clinical Summary ---
Author Organization [facility] Address [address] [place] [address] Care Team Providers Care Nutritionist Name Role Phone Janna Gomez LIZ Primary Care Provider [phone] Allergies No known active allergies Social History [...] of 2 - 13+ 2-dose series) 1994 [facility]- SDOH Screenings 1999 [facility]-Adult SDOH Screenings 1999 [facility]-Hepatitis B Vaccines (1 of 3 - 19+ 3-dose series) 02/29/2000 [facility]-Pap Smear 2002 HPV Vaccines (1 - 3-dose SCDM series) 02/29/2008 [facility]-Cervical Cancer Screening 2011 [facility]-HPV/Cotest 2011 [facility]-DTaP,Tdap,and Td Vaccines (2 - Td or Tdap) 04/07/2016 04/07/2006 [id number] Vaccine (3 - season) 2024 10/01/2020, 09/03/2020 [facility]-Influenza Vaccine (#1) [...] patient's age to complete this topic Insurance [address] [place] [address] ANTH Care Teams Nutritionist Relationship Specialty Start Date End Date Janna Gomez, LIZ [address] [place] [address] PCP - General 02/09/21
[2025-01-17 08:19] LABS: Hematocrit 37.9 % (37.0-47.0); Hemoglobin 12.7 g/dL (12.2-16.2); Immature Granulocytes % 0.4 %; Mean Corpuscular HGB Conc 33.5 g/dL (31.8-35.4); Mean Corpuscular Hemoglobin 29.2 pg (27.0-31.2); Mean Corpuscular Volume 87.1 fl (81-99); Nucleated Red Blood Cells % 0 %; Platelet Count 283 K/mm3 (142-424); Red Blood Count 4.35 M/mm3 (4.20-5.40); Red Cell Distribution Width-SD 41.5 fL; White Blood Count 5.4 K/mm3 (4.8-10.8)
[2025-01-17 08:54] LABS: Albumin Level 4.3 g/dl (3.5-5.0); Chloride 102 mmol/L (98-107); Potassium 4.0 mmoL/L (3.5-5.1); Sodium 138 mmol/L (136-145)
[2025-01-17 08:56] LABS: Alanine Aminotransferase 20 U/L (12-78); Aspartate Amino Transferase 25 U/L (14-36); Blood Urea Nitrogen 11 mg/dl (7-17); Creatinine,Serum 0.90 mg/dl (0.52-1.04); Estimated Glomerular Filt Rate 68 ml/min (>60); GFR (African American) 83 ML/MIN (>60)
[2025-01-17 08:57] LABS: Albumin/Globulin Ratio 1.4 (1.1-1.8); Alkaline Phosphatase 84 U/L (38-126); Anion Gap 13.0 mEq/L (5-15); Bilirubin,Total 0.5 mg/dl (0.2-1.3); Calcium 9.0 mg/dl (8.4-10.2); Carbon Dioxide 27 mmol/L (22.0-30.0); Cholesterol 230 mg/dl (140-200); Globulin 3.0 g/dL (1.3-3.2); Glucose 107 mg/dl (74-100); HDL Cholesterol 45 mg/dl (40-60); Total Protein,Serum 7.3 g/dl (6.3-8.2); Triglycerides 185 mg/dl (30-150)
[2025-01-17 09:13] LABS: Triiodothryronine (T3) Uptake 30 % (23.5-40.5)
[2025-01-17 09:14] LABS: 25-OH Vitamin D, Total 32.0 ng/mL (30-100); Free Thyroxine Index 3.5 ug/dL (5.93-13.13); T4 (Thyroxine) 11.8 ug/dl (5.53-11.0)
[2025-01-17 09:27] LABS: Thyroid Stimulating Hormone 1.05 uIU/mL (0.465-4.68)
[2025-01-18 13:28] LABS: FSH 22.1 mIU/mL (.); LH 10.1 mIU/mL (.)
== END 2025-01-17 23:59 | disposition home or self-care (01) ==
LOC: LAB 07:56
PROVIDERS: PCP Nurse Practitioner Family; Visit Provider Nurse Practitioner Obstetrics & Gynecology
DX: E06.3 Autoimmune thyroiditis (principal); D64.9 Anemia, unspecified; R79.89 Other specified abnormal findings of blood chemistry; E53.8 Deficiency of other specified B group vitamins; E05.90 Thyrotoxicosis, unspecified without thyrotoxic crisis or storm
CPT/HCPCS: 36415; 80053; 80061; 82306; 83001; 83002; 84436; 84443; 84479; 85025

== ENCOUNTER 2025-02-15 07:21 | Outpatient (CLI) | payer BC, SELFPAY ==
--- OUTSIDE RECORDS SUMMARY | 2018-09-11 07:52 | XMS_ITS | Encounter Summary ---
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 Procedures US Thyroid Deepthi Lozano MD [email or web address] [place] [address] Phone: tel: fax: [facility] [address] [place] [address] Phone: tel: fax: Referral ID Status Reason Start Date Expiration Date Visits Re quested Visits Authorized [id number] Closed 09/11/2018 09/11/2019 1 1 Encounter Details Date Type Department Care Team (Late st Contact Info) Description 09/11/2018 7:52 AM EDT Hospital Encounter [facility] [address] [place] [address] Social History Tobacco Use Types [...] Description 07/08/2025 11:30 AM EST Office Visit [facility] [address] [place] [address] Deepthi Lozano MD [address] [place] [address] documented as of this encounter Procedures Procedure [...] documented as of this encounter Care Teams Registered Radiation Therapist Relationship Specialty Start Date End Date Provider, [place] [address] PCP - General 09/11/18 09/22/18 documented as of this encounter
--- OUTSIDE RECORDS SUMMARY | 2025-01-01 12:15 | XMS_ITS | Encounter Summary ---
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 (Primary Dx) Social History Tobacco Use Types Packs/Day Years [...] on file documented as of this encounter Last Filed Vital Signs Vital Sign Reading Time Taken Comments Blood Pressure 116/62 01/01/2025 12:09 PM EDT Pulse 91 01/01/2025 12:09 PM EDT Temperature - - Respiratory Rate - - Oxygen Saturation 99% 01/01/2025 12:09 PM EDT Inhaled Oxygen Concentration - - Weight 83.1 kg (183 lb 3.2 oz) 01/01/2025 12:09 PM EDT Height 157.5 cm (5' 2 ) 01/01/2025 12:09 PM EDT Body Mass Index 33.51 01/01/2025 12:09 PM EDT documented in this encounter Progress Notes * Deepthi Lozano MD - 01/01/2025 12:15 PM EDT Chief Complaint Patient presents with 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 Last visit 04/11/2023. Her history is as follows: Interim Events: - pt had to cancel her 04/16/2024, 05/21/2024 appointments - Is receiving Vit B12 injections every 2 weeks - Patient reports more anxiety recently. Will be seeing her psychiatrist soon. 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 She was treated with methimazole for approx 1 yr by an outside provider and remained in remission. - in 08/2017 she developed hypothyroidism: (08/30/2017) TSH 5.820 (0.450 - 4.500), free T4 1.06, TPO Ab > 600 - Was initially seen by Dr Aravind Johnson who prescribed levothyroxine. Her dose was gradually increased to 75 mcg daily - In June 2018, her PCP switched her to SENIOR APPLICATION PROGRAMMER thyroid 30 mg daily - Initial Endocrine Visit (09/2018): reviewed the various forms of thyroid hormone available. Reviewed current [place] [employer] guidelines for hypothyroidism treatment and the limitationsof thyroid hormone extracts and T4/T3 preparations. Pt was not tolerating the SENIOR APPLICATION PROGRAMMER Thyroid. She had symptoms of jitteriness/tremor/anxiousness on the SENIOR APPLICATION PROGRAMMER thyroid due to the T3 content of the drug. Discontinued the SENIOR APPLICATION PROGRAMMER thyroid and Started Brand Synthroid 75 mcg daily. Dose of Synthroid has been titrated. Current Dose: Brand Synthroid 125 mcg daily - Takes in AM on an empty stomach and waits at least 25 - 30 min before eating/hot liquids - not on high dose biotin - no missed doses FMH: no known thyroid cancer, Pt's mother has hypothyroidism PMH: no h/o irradiation of head, neck, or chest 2) h/o goiter: - pt was noted to have a goiter on physical exam when first diagnosed with Graves disease in 2007 - she had a Thyroid US completed at [facility] on 06/22/2017. The report described a mildly enlarged gland with heterogeneous echogenicity. No discrete nodules. Thyroid US completed in clinic 09/2018 showed the thyroid gland was mildly enlarged in size by measured dimensions consistent with a simple goiter. No discrete nodules were noted in either lobe or the isthmus.The thyroid gland appeared overall hypoechoic with diffusely heterogeneous echotexture; fibrous stranding throughout the gland; and increased vascularity. Findings were suggestive of Adalid's thyroiditis and correlated clinically with the patient's history. RECOMMENDATIONS :Repeat Thyroid US recommended if changes in the gland/neck are noted on physical exam. - Her gland has decreased in size since starting thyroid hormone Other history: - diagnosed with pernicious anemia in 12/2020 - Testing completed on 03/11/2021, showed normal AM ACTH and cortisol levels. Cosyntropin stimulation test also showed appropriately stimulated as all levels at 30 minutes and 60 minutes after injection. No evidence of adrenal insufficiency - Patient has also had celiac antibody screening in December 2020 which was negative. Review of Systems Constitutional: Positive for fatigue (intermittent). Weight gain HENT: Negative for ear pain. Eyes: Negative. Respiratory: Negative. Cardiovascular: Negative for palpitations. Gastrointestinal: Negative for diarrhea and nausea. Endocrine: Negative. Genitourinary: Negative. Musculoskeletal: Negative. Skin: Negative. Allergic/Immunologic: Negative. Neurological: Negative. Negative for tremors and light-headedness. Hematological: Negative. Psychiatric/Behavioral: More Anxiety recently The following portions of the patient's history were reviewed and updated as appropriate: allergies, current medications, past family history, past medical history, past social history, past surgicalhistory and problem list. BP 116/62 (BP Location: Right arm, Patient Position: Sitting, Cuff Size: Adult) Pulse 91 Ht 157.5 cm (62 ) Wt 83.1 kg (183 lb 3.2 oz) SpO2 99% BMI 33.51 kg/m?? Physical Exam Constitutional: She is oriented to person, place, and time. She appears well- developed. No distress. HENT: Head: Normocephalic. Mouth/Throat: She has dentures. Eyes: Pupils are equal, round, and reactive to light. Conjunctivae are normal. Neck: No tracheal deviation present. No thyromegaly present. No palpable thyroid nodules Cardiovascular: Normal rate, regular rhythm and normal heart sounds. No murmur heard. Pulmonary/Chest: Effort normal and breath sounds normal. No respiratory distress. Lymphadenopathy: She has no cervical adenopathy. Neurological: She is alert and oriented to person, place, and time. No cranial nerve deficit. Skin: Skin is warm and dry. She is not diaphoretic. No erythema. Psychiatric: Her behavior is normal. Vitals reviewed. LABS/IMAGING: outside records reviewed and summarized in HPI Office Visit on 01/01/2025 Component Date Value Ref Range Status TSH 01/01/2025 11.000 (H) 0.270 - 4.200 uIU/mL Final Free T4 01/01/2025 0.87 (L) 0.92 - 1.68 ng/dL Final (07/09/2024) TSH 3.41 (0.465 - 4.68) (12/31/2024) CBC - Hgb 12.1 Ferritin 12.1 Vit B12 759 ASSESSMENT/PLAN: 1) Hypothyroidism due to Adalid's Thyroiditis: - clinically euthyroid on exam - TSH checked today elevated at 11.00, confirmed that patient is taking her medication as directed without interfering factors - increasing Brand Synthroid to 137 mcg qAM at this time. - mailing lab order for TSH to be checked locally in 2 months - Reviewed proper thyroid hormone administration, and factors to avoid that decrease medication potency and medication absorption. 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 Expected: 02/15/2025 (Approximate), Expires: 01/02/2026 documented as of this encounter Procedures Procedure Name Priority Date/Time Associated Diagnosis Comments TSH Routine 01/01/2025 12:38 PM EDT 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
[address] [place] [address], * (ABNORMAL) TSH (01/01/2025 12:38 PM EDT) TSH 11.000(H) 0.270 - 4.200 uIU/mL 01/01/2025 11:51 PM EDT [facility] Blood Structure of left upper limb / Unknown Venipuncture / Unknown 01/01/2025 12:38 PM EDT 01/01/2025 12:38 PM EDT us Deepthi Lozano MD LAB BLOOD ORDERABLES Final Resul t [facility]
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
--- OUTSIDE RECORDS SUMMARY | 2025-02-15 07:24 | XMS_ITS | Clinical Summary ---
Author Organization [employer] [facility] Address [address] [place] [address] Phone [email or web address] Care Team Providers Care Fish Technologist Name Role Phone Unavailable Primary Care Provider [...] cm (5' 2 ) 06/08/2019 12:00 AM DEVELOPMENTAL THERAPIST Body Mass Index 27.44 06/08/2019 12:00 AM DEVELOPMENTAL THERAPIST Plan of Treatment Health Maintenance Due Date [...] Cancer Screening 2011 Covid-19 Immunization ( season) 2025 Influenza Immunization (#1) 02/04/202512/2018, 04/14/2018, 04/15/2016, Additional [...]
--- OUTSIDE RECORDS SUMMARY | 2025-02-15 07:24 | XMS_ITS | Clinical Summary ---
Author Organization [facility] Address [address] [place] [address] Care Team Providers Care Litharge Mill Operator Name Role Phone Janna Gomez LIZ Primary Care Provider [phone] Allergies No known active allergies Social History [...] Date Last Done Comments [facility]-Depression Screening 1981 [facility]-/Child/Adol SDOH Screenings 1981 [facility]-Varicella Vaccines (1 of 2 - 13+ 2-dose series) 1994 [facility]- SDOH Screenings 1999 [facility]-Adult SDOH Screenings 1999 [facility]-Hepatitis B Vaccines (1 of 3 - 19+ 3-dose series) 02/29/2000 [facility]-Pap Smear 2002 HPV Vaccines (1 - 3-dose SCDM series) 02/29/2008 [facility]-Cervical Cancer Screening 2011 [facility]-HPV/Cotest 2011 [facility]-DTaP,Tdap,and Td Vaccines (2 - Td or Tdap) 04/07/2016 04/07/2006 [id number] Vaccine (3 - 2024- season) 2025 10/01/2020, 09/03/2020 [facility]-Influenza Vaccine (#1) 2025 02/05/2020 [...] age to complete this topic Insurance [address] [place] [address] ANTH Care Teams Litharge Mill Operator Relationship Specialty Start Date End Date Janna Gomez, LIZ [address] [place] [address] PCP - General 02/09/21
--- OUTSIDE RECORDS SUMMARY | 2025-02-15 07:24 | XMS_ITS | Encounter Summary ---
Author Organization [facility] ystem Address [address] [place] [phone] Care Team Providers Care Minister Of Religion Name Role Phone Janna Gomez APRN Primary Care Provider [phone] Encounter Details Date Type Department Care Team (Late st Contact Info) Description 01/03/2025 Telephone [facility] ENDOCRINOLOGY [address] [place] [address] Deepthi Lozano MD [address] [place] [address] Social History Tobacco Use Types Packs/Day Years [...] order for TSH to patient. Printed to [id number]. Thanks MD documented in this encounter Plan of Treatment Upcoming Encounters Date Type Department Care Team (Late st Contact Info) Description 07/08/2025 11:30 AM EST Office Visit [facility] ENDOCRINOLOGY [address] [facility] [address] [place] [phone] Deepthi Lozano MD [address] [facility] [address] [place] [address] documented as of this encounter Visit Diagnoses Not on filedocumented in this encounter Care Teams Minister Of Religion Relationship Specialty Start Date End Date Janna Gomez APRN PCP - General Internal Medicine 09/23/18 documented as of this encounter
--- OUTSIDE RECORDS SUMMARY | 2025-02-15 07:24 | XMS_ITS | Clinical Summary ---
Author Organization [facility] ystem Address [address] [place] [address] Care Team Providers Care Fraternity Adviser Name Role Phone Jason Janna HILL Primary Care Provider [phone] Allergies No known active allergies Medications Cyanocobalamin (B-12 COMPLIANCE INJECTION IJ) Inject as directed Every 14 (Fourteen) Days. Active venlafaxine XR (EFFEXOR-XR) 150 MG 24 hr capsule 1 capsule Daily. 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 New dose. Please D/C prior Rx for 125 mcg 30 tablet 5 5 Active Active Problems [...] Type Department Care Team Description 01/03/2025 Telephone [facility] ENDOCRINOLOGY [address] [facility] [address] [place] [address] Deetphi Lozano MD 01/02/2025 Results Follow-Up [facility] [address] [facility] [address] [place] [address] Deepthi Lozano MD 01/01/2025 12:15 PM EDT Office Visit [facility] ENDOCRIN[facility] [address] [facility] [address] [place] [address] Deepthi Lozano MD Hypothyroidism due to Adalid's [...] Description 07/08/2025 11:30 AM EST Office Visit [facility] ENDOCR[facility] [address] [place] [address] Deepthi Lozano MD [address] [place] [address] Health Maintenance Due Date Last Done Comments Annual Gynecologic Pelvic and Breast Exam 1981 TDAP/TD VACCINES (2 - Td or Tdap) 04/07/2016 04/07/2006 ANNUAL PHYSICAL 09/11/2018 HEPATITIS C SCREENING 09/11/2018 MAMMOGRAM 06/03/2024 06/03/2022, 06/03/2022 COVID-19 Vaccine ( season) 2025 10/01/2020, 09/03/2020, 08/04/2020 INFLUENZA VACCINE 03/06/2025 02/05/2020, [...] - 4.200 uIU/mL 01/01/2025 11:51 PM EDT [facility] Blood Structure of left upper limb / Unknown Venipuncture / Unknown 01/01/2025 12:38 PM EDT 01/01/2025 12:38 PM EDT Deepthi Lozano MD LAB BLOOD ORDERABLES Final Resul t Performing Organization Address City/[facility]/ZIP Co de Phone Number [facility]
[address] [place] [address], * (ABNORMAL) T4, Free (01/01/2025 12:38 PM EDT) Free T4 0.87(L) 0.92 - 1.68 ng/dL 01/01/2025 11:50 PM EDT [facility] Blood Structure of left upper limb / Unknown Venipuncture / Unknown 01/01/2025 12:38 PM EDT 01/01/2025 12:38 PM EDT Deepthi Lozano MD LAB BLOOD ORDERABLES Final Resul t [facility]
[address] [place] [address], * MAMMO Outside Films (06/03/2022 10:09 AM EST) Narrative SYSTEMGENERATED, DOCUMENTATION - 06/03/2022 10:09 AM EST This procedure was auto-finalized with no dictation required. Janna Gomez APRN IMG MAMMOGRAPHY ORDERABLES F inal Result from Last 3 Months or Most Recently Relevant to Health Maintenance Insurance [employer] PPO Care Teams Fraternity Adviser Relationship Specialty Start Date End Date Janna Gomez APRN PCP - General Internal Medicine 09/23/18
--- OUTSIDE RECORDS SUMMARY | 2025-02-15 07:24 | XMS_ITS | Encounter Summary ---
Author Organization [facility] ystem Address [address] [place] [address] Care Team Providers Care Pigment Furnace Tender Name Role Phone Janna Gomez APRN Primary Care Provider [phone] Encounter Details Date Type Department Care Team (Late st Contact Info) Description 09/07/2024 Results Follow-Up [facility] ENDOCR[facility]OLOG[facility] [address] [place] [address] Deepthi Lozano MD [address] [place] [address] Social History Tobacco Use Types [...] Description 07/08/2025 11:30 AM EST Office Visit [facility] [address] [place] [address] Deepthi Lozano MD [address] [place] [address] documented as of this encounter Visit Diagnoses Diagnosis 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
--- OUTSIDE RECORDS SUMMARY | 2025-02-15 07:24 | XMS_ITS | Encounter Summary ---
Author Organization [facility] ystem Address [address] [place] [address] Care Team Providers Care Accounts Receivable Coordinator Name Role Phone Janna Gomez APRN Primary Care Provider [phone] Encounter Details Date Type Department Care Team (Late st Contact Info) Description 01/02/2025 Results Follow-Up [facility] ENDOCRINOLOGY [address] [place] [address] Deepthi Lozano MD [address] [place] [address] Social History Tobacco Use Types [...] Description 07/08/2025 11:30 AM EST Office Visit [facility]CR[facility] [address] [place] [address] Deepthi Lozano MD [address] [place] [address] documented as of this encounter Visit Diagnoses Not on filedocumented in this encounter Care Teams Accounts Receivable Coordinator Relationship Specialty Start Date End Date Janna Gomez APRN PCP - General Internal Medicine 09/23/18 documented as of this encounter
--- OUTSIDE RECORDS SUMMARY | 2025-02-15 07:24 | XMS_ITS | Encounter Summary ---
[facility] Organization [facility] Address [address] [place] [id number] Care Team Providers Care Electron Beam Welder Name Role Phone Janna Gomez APRN Primary Care Provider [phone] Encounter Details Date Type Department Care Team [...] Description 07/08/2025 11:30 AM EST Office Visit [facility] ENDOCR[facility] [address] [place] [address] Deepthi Lozano MD [address] [place] [address] documented as of this encounter Visit Diagnoses Not on filedocumented in this encounter Care Teams Electron Beam Welder Relationship Specialty Start Date End Date Janna Gomez APRN [phone] (work) PCP - General Internal Medicine 09/23/18 documented as of this encounter
[2025-02-15 09:19] LABS: Thyroid Stimulating Hormone 1.90 uIU/mL (0.465-4.68)
== END 2025-02-15 23:59 | disposition home or self-care (01) ==
LOC: LAB 07:22
PROVIDERS: PCP Nurse Practitioner Family; Visit Provider Internal Medicine
DX: E06.3 Autoimmune thyroiditis (principal)
CPT/HCPCS: 36415; 84443

== ENCOUNTER 2025-04-30 07:03 | Outpatient (CLI) | payer BC, SELFPAY ==
--- OUTSIDE RECORDS SUMMARY | 2018-09-11 06:52 | XMS_ITS | Encounter Summary ---
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 Procedures US Thyroid Deepthi Lozano MD [address] [place] [address] Phone: tel: fax: [facility] [address] [place] [address] Phone: tel: fax: Referral ID Status Reason Start Date Expiration Date Visits Re quested Visits Authorized [id number] Closed 09/11/2018 09/11/2019 1 1 Encounter Details Date Type Department Care Team (Late st Contact Info) Description 09/11/2018 7:52 AM EDT Hospital Encounter [facility] [address] [place] [address] Social History Tobacco Use Types [...] Description 07/08/2025 11:30 AM EST Office Visit [facility] [address] [place] [address] Deepthi Lozano MD [address] [place] [address] documented as of this encounter Procedures Procedure [...] documented as of this encounter Care Teams Unemployment Insurance Hearing Officer Relationship Specialty Start Date End Date Provider, [place] [address] PCP - General 09/11/18 09/22/18 documented as of this encounter
--- OUTSIDE RECORDS SUMMARY | 2025-04-25 10:50 | XMS_ITS | Encounter Summary ---
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; Pernicious anemia Social History Tobacco Use Types Packs/Day Years [...] Description 07/08/2025 11:30 AM EST Office Visit [facility] ENDOCR[facility] [address] [place] [address] Deepthi Lozano MD [address] [place] [address] documented as of this encounter Procedures Procedure Name Priority Date/Time Associated Diagnosis Comments TSH Routine 04/25/2025 10:47 AM EST 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 us Deepthi Lozano MD LAB BLOOD ORDERABLES Final Resul t Performing Organization Address City/[facility]/ZIP Co de Phone Number [facility]
[address] [place] [address], * TSH (04/25/2025 10:47 AM EST) TSH 3.000 0.270 - 4.200 uIU/mL 04/25/2025 3:07 PM EST [facility] Blood Venipuncture / Unknown 04/25/2025 10:47 AM EST 04/25/2025 10:47 AM EST us Deepthi Lozano MD LAB BLOOD ORDERABLES Final Resul t Performing Organization Address City/[facility]/ZIP Co de Phone Number [facility]
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
--- OUTSIDE RECORDS SUMMARY | 2025-04-30 07:06 | XMS_ITS | Encounter Summary ---
[facility] Address [address] [id number] Care Team Providers Care Bottom Presser Name Role Phone Janna Gomez APRN Primary Care Provider [phone] Encounter Details Date Type Department Care Team (Latest Contact Info) Description 04/25/2025 Travel Social History Tobacco Use Types Packs/Day [...] Description 07/08/2025 11:30 AM EST Office Visit [facility] ENDOCRINOLOGY [address] [place] [address] Deepthi Lozano MD [address] [place] [address] documented as of this encounter Visit Diagnoses Not on filedocumented in this encounter Care Teams Bottom Presser Relationship Specialty Start Date End Date Janna Gomez APRN [phone] (work) PCP - General Internal Medicine 09/23/18 documented as of this encounter
--- OUTSIDE RECORDS SUMMARY | 2025-04-30 07:06 | XMS_ITS | Encounter Summary ---
Author Organization [facility] ystem Address [address] [place] [address] Care Team Providers Care Cake Mixer Name Role Phone Janna Gomez APRN Primary Care Provider [phone] Encounter Details Date Type Department Care Team (Late st Contact Info) Description 01/02/2025 Results Follow-Up [facility] ENDOCRINOLOGY [address] [place] [address] Deepthi Lozano MD [address] [place] [address] Social History Tobacco Use Types [...] 07/08/2025 11:30 AM EST Office Visit [facility] ENDOCRINOLOGY [address] [place] [address] Deepthi Lozano MD [address] [place] [address] documented as of this encounter Visit Diagnoses Not on filedocumented in this encounter Care Teams Cake Mixer Relationship Specialty Start Date End Date Janna Gomez APRN PCP - General Internal Medicine 09/23/18 documented as of this encounter
--- OUTSIDE RECORDS SUMMARY | 2025-04-30 07:06 | XMS_ITS | Clinical Summary ---
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; Pernicious anemia 04/25/2025 Results Follow-Up [facility] ENDOCRINOLOGY [address] [facility] [address] [place] [address] Deepthi Lozano MD 04/25/2025 Travel from Last 3 Months Family History [...] Description 07/08/2025 11:30 AM EST Office Visit [facility] ENDOCRINOLOGY [address] [place] [address] Deepthi Lozano MD [address] [place] [address] Health Maintenance Due Date Last Done Comments Annual Gynecologic Pelvic and Breast Exam 1981 TDAP/TD VACCINES (2 - Td or Tdap) 04/07/2016 04/07/2006 ANNUAL PHYSICAL 09/11/2018 HEPATITIS C SCREENING 09/11/2018 MAMMOGRAM 06/03/2024 06/03/2022, 06/03/2022 INFLUENZA VACCINE 01/04/2025 02/05/2020, , 04/14/2018, Additional history exists Pneumococcal Vaccine 0-49 Aged Out No longer eligible based on patient's age to complete this topic Procedures Procedure Name Priority Date/Time Associated Diagnosis Comments VITAMIN B12 Routine 04/25/2025 10:47 AM EST Pernicious anemia TSH Routine 04/25/2025 10:47 AM EST 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
[address] [place] [address], * Vitamin B12 (04/25/2025 10:47 AM EST) Vitamin B-12 755 211 - 946 pg/mL 04/25/2025 3:07 PM EST [facility] Blood Venipuncture / Unknown 04/25/2025 10:47 AM EST 04/25/2025 10:47 AM EST Narrative [facility] - 04/25/2025 3:07 PM EST Results may be falsely increased if patient taking Biotin. Deepthi Lozano MD LAB BLOOD ORDERABLES Final Resul t Performing Organization Address [facility] de Phone Number [facility]
[address] [place] [address], * MAMMO Outside Films (06/03/2022 10:09 AM EST) Narrative SYSTEMGENERATED, DOCUMENTATION - 06/03/2022 10:09 AM EST This procedure was auto-finalized with no dictation required. Janna Gomez SHOE PARTS MOLDER IMG MAMMOGRAPHY ORDERABLES F inal Result from Last 3 Months or Most Recently Relevant to Health Maintenance Insurance [facility] PPO Care Teams Network Operations Center Technician Relationship Specialty Start Date End Date Janna Gomez APRN PCP - General Internal Medicine 09/23/18
--- OUTSIDE RECORDS SUMMARY | 2025-04-30 07:06 | XMS_ITS | Encounter Summary ---
Author Organization [facility] ystem Address [address] [place] [address] Care Team Providers Care City Manager Name Role Phone Janna Gomez APRN Primary Care Provider [phone] Encounter Details Date Type Department Care Team (Late st Contact Info) Description 04/25/2025 Results Follow-Up [facility] ENDOCRINOLOGY [address] [place] [address] Deepthi Lozano MD [address] [place] [address] Social History Tobacco Use Types [...] Description 07/08/2025 11:30 AM EST Office Visit [facility] ENDOCRINOLOGY [address] [place] [address] Deepthi Lozano MD [address] [place] [address] documented as of this encounter Visit Diagnoses Not on filedocumented in this encounter Care Teams City Manager Relationship Specialty Start Date End Date Janna Gomez APRN PCP - General Internal Medicine 09/23/18 documented as of this encounter
--- OUTSIDE RECORDS SUMMARY | 2025-04-30 07:06 | XMS_ITS | Clinical Summary ---
Author Organization [facility] Address [address] [place] [address] Care Team Providers Care Respiratory Therapy Director Name Role Phone Janna Gomez LIZ Primary Care Provider [phone] Allergies No known active allergies Social History [...] (2 - Td or Tdap) 04/07/2016 04/07/2006 [id number] Vaccine (3 - 2024- season) 2025 10/01/2020, [...] age to complete this topic Insurance [address] [place] [address] ANTH Care Teams Respiratory Therapy Director Relationship Specialty Start Date End Date Janna Gomez, LIZ [address] [place] [address] PCP - General 02/09/21
--- OUTSIDE RECORDS SUMMARY | 2025-04-30 07:06 | XMS_ITS | Encounter Summary ---
Author Organization [facility] ystem Address [address] [place] [address] Care Team Providers Care Aircraft Hydraulic Equipment Mechanic Name Role Phone Janna Gomez APRN Primary Care Provider [phone] Encounter Details Date Type Department Care Team (Late st Contact Info) Description 09/07/2024 Results Follow-Up [facility] ENDOCRINOLOGY [address] [place] [address] Deepthi Lozano MD [address] [place] [address] Social History Tobacco Use Types [...] Description 07/08/2025 11:30 AM EST Office Visit [facility] ENDOCRINOLOGY [address] [place] [address] Deepthi Lozano MD [address] [place] [address] documented as of this encounter Visit Diagnoses Diagnosis 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
[2025-04-30 07:21] LABS: Hematocrit 37.3 % (37.0-47.0); Hemoglobin 12.5 g/dL (12.2-16.2); Immature Granulocytes % 0.3 %; Mean Corpuscular HGB Conc 33.5 g/dL (31.8-35.4); Mean Corpuscular Hemoglobin 29.1 pg (27.0-31.2); Mean Corpuscular Volume 86.7 fl (81-99); Nucleated Red Blood Cells % 0 %; Platelet Count 236 K/mm3 (142-424); Red Blood Count 4.30 M/mm3 (4.20-5.40); Red Cell Distribution Width-SD 41.1 fL; White Blood Count 6.6 K/mm3 (4.8-10.8)
[2025-04-30 07:59] LABS: Alanine Aminotransferase 18 U/L (12-78); Albumin Level 4.2 g/dl (3.5-5.0); Albumin/Globulin Ratio 1.4 (1.1-1.8); Alkaline Phosphatase 87 U/L (38-126); Anion Gap 8.5 mEq/L (5-15); Aspartate Amino Transferase 22 U/L (14-36); Bilirubin,Total 0.5 mg/dl (0.2-1.3); Blood Urea Nitrogen 8 mg/dl (7-17); Calcium 9.1 mg/dl (8.4-10.2); Carbon Dioxide 24 mmol/L (22.0-30.0); Chloride 104 mmol/L (98-107); Creatinine,Serum 0.90 mg/dl (0.52-1.04); Estimated Glomerular Filt Rate 68 ml/min (>60); GFR (African American) 82 ML/MIN (>60); Globulin 2.9 g/dL (1.3-3.2); Glucose 112 mg/dl (74-100); Magnesium 2.0 mg/dl (1.6-2.3); Potassium 3.5 mmoL/L (3.5-5.1); Sodium 133 mmol/L (136-145); Total Protein,Serum 7.1 g/dl (6.3-8.2)
[2025-04-30 08:15] LABS: 25-OH Vitamin D, Total 44.6 ng/mL (30-100)
== END 2025-04-30 23:59 | disposition home or self-care (01) ==
LOC: LAB 07:04
PROVIDERS: PCP Nurse Practitioner Family; Visit Provider Nurse Practitioner Family
DX: D64.9 Anemia, unspecified (principal); R45.0 Nervousness; E03.9 Hypothyroidism, unspecified; E06.3 Autoimmune thyroiditis; R00.0 Tachycardia, unspecified; E05.90 Thyrotoxicosis, unspecified without thyrotoxic crisis or storm; R79.89 Other specified abnormal findings of blood chemistry
CPT/HCPCS: 36415; 80053; 82180; 82306; 82525; 83735; 84630; 85025

== ENCOUNTER 2025-05-07 14:21 | Outpatient (CLI) | payer BC, SELFPAY ==
--- OUTSIDE RECORDS SUMMARY | 2018-09-11 06:52 | XMS_ITS | Encounter Summary ---
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 Procedures US Thyroid Deepthi Lozano MD [address] [place] [address] Phone: tel: fax: [facility] [address] [place] [address] Phone: tel: fax: Referral ID Status Reason Start Date Expiration Date Visits Re quested Visits Authorized [id number] Closed 09/11/2018 09/11/2019 1 1 Encounter Details Date Type Department Care Team (Late st Contact Info) Description 09/11/2018 7:52 AM EDT Hospital Encounter [facility] [address] [place] [address] Social History Tobacco Use Types Packs/Day Years Used Date Smoking Tobacco: Former Cigarettes Q uit: 2017 Smokeless Tobacco: Never Alcohol Use Standard Drinks/Week Comments No 0 (1 standard drink = 0.6 oz pur e alcohol) AUDIT-C Answer Date Recorded Frequency of Alcohol Consumption Never 09/11/2018 Average Number of Drinks Not on file 019 Frequency of Binge Drinking Not on file 01/2019 Comments No Sex and Gender Information Value Date Recorded Sex Assigned at Not on file Legal Sex Female 12:31 PM EDT Gender Identity Not on file Sexual Orientation Not on file documented as of this encounter Functional Status documented as of this encounter Plan of Treatment Upcoming Encounters Date Type Department Care Team (Late st Contact Info) Description 07/08/2025 11:30 AM EST Office Visit [facility] [address] [place] [address] Deepthi Lozano MD [address] [place] [address] documented as of this encounter Procedures Procedure Name Priority Date/Time Associated Diagnosis Comments US THYROID Routine 09/11/2018 7:52 AM EDT 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 us Deepthi Lozano MD IMG US ORDERABLES Final Result documented in this encounter Visit Diagnoses Not on filedocumented in this encounter Additional Health Concerns Infection Onset Date Last Indicated Resolved Time COVID Screen (preop/placement) 03/10/2021 03/10/2021 03/10/2021 11:37 PM EDT documented as of this encounter Care Teams Biometrics Analyst Relationship Specialty Start Date End Date Provider, [place] [address] PCP - General 09/11/18 09/22/18 documented as of this encounter
--- OUTSIDE RECORDS SUMMARY | 2025-04-25 10:50 | XMS_ITS | Encounter Summary ---
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; Pernicious [...] Description 07/08/2025 11:30 AM EST Office Visit [facility] ENDOCRINOLOGY [address] [place] [id number] Deepthi Lozano MD [address] [place] [address] documented as of this encounter Procedures Procedure Name Priority Date/Time Associated Diagnosis Comments TSH Routine 04/25/2025 10:47 AM EST 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 us Deepthi Lozano MD LAB BLOOD ORDERABLES Final Resul t Performing Organization Address City/[facility]/ZIP Co de Phone Number [facility]
[address] [place] [address], * TSH (04/25/2025 10:47 AM EST) TSH 3.000 0.270 - 4.200 uIU/mL 04/25/2025 3:07 PM EST [facility] Blood Venipuncture / Unknown 04/25/2025 10:47 AM EST 04/25/2025 10:47 AM EST us Deepthi Lozano MD LAB BLOOD ORDERABLES Final Resul t Performing Organization Address City/[facility]/ZIP Co de Phone Number [facility]
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
--- NOTE | 2025-05-07 14:30 | MM_ITS ---
PROCEDURE INFORMATION: Exam: MG Bilateral Screening 3D Mammography Exam date and time: 05/07/2025 2:28 PM Age: 45 years old Clinical indication: Screening mammogram. TECHNIQUE: Imaging protocol: Bilateral Screening tomosynthesis and 2D mammography including computer-aided detection (CAD) when performed. COMPARISON: MG MM DIG SCREENING MAMM BI W/CAD 03/29/2022 10:35 AM FINDINGS: MAMMOGRAPHY: Breast composition: The breast is heterogeneously dense, which may obscure small masses. Mass: None. Architectural distortion: No new or suspicious architectural distortion. Calcifications: No new or suspicious calcifications are present Asymmetric density: No new or suspicious asymmetric density is present Skin thickening: None. Axillary adenopathy: None. IMPRESSION: No mammographic evidence of malignancy. Recommend annual screening mammography unless otherwise clinically indicated. ASSESSMENT: BI-RADS category 1: Negative.
--- OUTSIDE RECORDS SUMMARY | 2025-05-07 14:33 | XMS_ITS | Encounter Summary ---
Author Organization [facility] ystem Address [address] [id number] Care Team Providers Care Nursing Home Social Worker Name Role Phone Janna Gomez APRN Primary Care Provider [phone] Encounter Details Date Type Department Care Team (Late st Contact Info) Description 09/07/2024 Results Follow-Up [facility] ENDOCRINOLOGY [address] [place] [address] Deepthi Lozano MD [address] [place] [address] Social History Tobacco Use Types [...] Description 07/08/2025 11:30 AM EST Office Visit [facility] ENDOCRINOLOGY [address] [place] [address] Deepthi Lozano MD [address] [place] [address] documented as of this encounter Visit Diagnoses Diagnosis 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
--- OUTSIDE RECORDS SUMMARY | 2025-05-07 14:33 | XMS_ITS | Clinical Summary ---
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; Pernicious anemia 04/25/2025 Results Follow-Up [facility] END[facility] [address] [facility] [address] [place] [address] Deepthi Lozano MD 04/25/2025 Travel from Last [...] Description 07/08/2025 11:30 AM EST Office Visit [facility] ENDOCRINOLOGY [address] [place] [address] Deepthi Lozano MD [address] [place] [address] Health Maintenance Due Date Last [...] - 4.200 uIU/mL 04/25/2025 3:07 PM EST [facility] Blood Venipuncture / Unknown 04/25/2025 10:47 AM EST 04/25/2025 10:47 AM EST Deepthi Lozano MD LAB BLOOD ORDERABLES Final Resul t Performing Organization Address City/[facility]/ZIP Co de Phone Number [facility]
[address] [place] [address], * Vitamin B12 (04/25/2025 10:47 AM EST) Vitamin B-12 755 211 - 946 pg/mL 04/25/2025 3:07 PM EST [facility] Blood Venipuncture / Unknown 04/25/2025 10:47 AM EST 04/25/2025 10:47 AM EST Narrative [facility] - 04/25/2025 3:07 PM EST Results may be falsely increased if patient taking Biotin. Deepthi Lozano MD LAB BLOOD ORDERABLES Final Resul t Performing Organization Address [facility] de Phone Number [facility]
[address] [place] [address], * MAMMO Outside Films (06/03/2022 10:09 AM EST) Narrative SYSTEMGENERATED, DOCUMENTATION - 06/03/2022 10:09 AM EST This procedure was auto-finalized with no dictation required. Janna Gomez PILOT MANAGER IMG MAMMOGRAPHY ORDERABLES F inal Result from Last 3 Months or Most Recently Relevant to Health Maintenance Insurance [facility] [facility] PPO Care Teams Anodiser Relationship Specialty Start Date End Date Janna Gomez APRN PCP - General Internal Medicine 09/23/18
--- OUTSIDE RECORDS SUMMARY | 2025-05-07 14:33 | XMS_ITS | Clinical Summary ---
Author Organization [employer] [facility] Address [address] [place] [id number] Phone [email or web address] Care Team Providers Care Special Trackwork Blacksmith Name Role Phone Unavailable Primary Care Provider [...] cm (5' 2 ) 06/08/2019 12:00 AM STEERSMAN Body Mass Index 27.44 06/08/2019 12:00 AM STEERSMAN Plan of Treatment Health Maintenance Due Date Last Done Comments Cervical Cancer Screening Combo 1981 Dental Cleaning/Exam 1981 HIV Screening 1981 HPV only / HPV + Pap 1981 Hepatitis C Screening 1981 Pap only testing 1981 HPV Immunization (1 - 2-dose series) 02/29/1992 Annual Preventive Exam 1999 Hep B Infection Screening - Triple Screen 1999 Hepatitis B Immunization (1 of 3 - 19+ 3-dose series) 02/29/2000 Tetanus Diphtheria and Pertussis Immunization (1 - Tdap) 02/29/2000 Breast Cancer Screening 2011 Covid-19 Immunization ( - 2024- season) 2025 Influenza Immunization (#1) 02/04/202512/2018, 04/14/2018, 04/15/2016, Additional history exists HIB Immunization Aged Out No longer e ligible based on patient's age to complete this topic Hepatitis A Immunization Aged Out No longer eligible based on patient's age to complete this topic Pneumococcal Immunization Aged Out No longer eligible based on patient's age to complete this topic Polio Immunization Aged Out No longer eligible based on patient's age to complete this topic Varicella Immunization Aged Out No lo nger eligible based on patient's age to complete this topic
--- OUTSIDE RECORDS SUMMARY | 2025-05-07 14:33 | XMS_ITS | Encounter Summary ---
Author Organization [facility] ystem Address [address] [place] [address] Care Team Providers Care Soil Science Teacher Name Role Phone Janna Gomez APRN Primary Care Provider [phone] Encounter Details Date Type Department Care Team (Late st Contact Info) Description 04/25/2025 Results Follow-Up [facility] ENDOCRINOLOGY [address] [place] [address] Deepthi Lozano MD [address] [place] [address] Social History Tobacco Use Types [...] Visit [facility] ENDOCRINOLOGY [address] [place] [address] Deepthi Lozano MD [address] [place] [address] documented as of this encounter Visit Diagnoses Not on filedocumented in this encounter Care Teams Soil Science Teacher Relationship Specialty Start Date End Date Janna Gomez APRN PCP - General Internal Medicine 09/23/18 documented as of this encounter
--- OUTSIDE RECORDS SUMMARY | 2025-05-07 14:33 | XMS_ITS | Clinical Summary ---
Author Organization [facility] Address [address] [place] [address] Care Team Providers Care Long Goods Drier Name Role Phone Janna Gomez LIZ Primary Care Provider [phone] Allergies No known active allergies Social History [...] (2 - Td or Tdap) 04/07/2016 04/07/2006 [id number] Vaccine (3 - 2024- season) 2025 10/01/2020, [...] age to complete this topic Insurance [address] [place] [address] ANTH Care Teams Long Goods Drier Relationship Specialty Start Date End Date Janna Gomez, LIZ [address] [place] [address] PCP - General 02/09/21
--- OUTSIDE RECORDS SUMMARY | 2025-05-07 14:33 | XMS_ITS | Encounter Summary ---
Author Organization [facility] ystem Address [address] [place] [address] Care Team Providers Care Pot Room Tapper Name Role Phone Janna Gmoez APRN Primary Care Provider [phone] Encounter Details Date Type Department Care Team (Late st Contact Info) Description 01/02/2025 Results Follow-Up [facility] ENDOCRINOLOGY [address] [place] [address] Deepthi Lozano MD [address] [place] [address] Social History Tobacco Use Types [...] [facility] [address] [place] [address] Deepthi Lozano MD [address] [place] [address] documented as of this encounter Visit Diagnoses Not on filedocumented in this encounter Care Teams Pot Room Tapper Relationship Specialty Start Date End Date Janna Gomez APRN PCP - General Internal Medicine 09/23/18 documented as of this encounter
--- OUTSIDE RECORDS SUMMARY | 2025-05-07 14:33 | XMS_ITS | Encounter Summary ---
[facility] Address [address] [id number] Care Team Providers Care Airbrush Artist Name Role Phone Janna Gomez APRN Primary Care Provider [phone] Encounter Details Date Type Department Care Team [...] AM EST Office Visit [facility] ENDOCRINOLOGY [address] [place] [address] Deepthi Lozano MD [address] [place] [address] documented as of this encounter Visit Diagnoses Not on filedocumented in this encounter Care Teams Airbrush Artist Relationship Specialty Start Date End Date Janna Gomez APRN [phone] (work) PCP - General Internal Medicine 09/23/18 documented as of this encounter
== END 2025-05-07 23:59 | disposition home or self-care (01) ==
LOC: RAD 14:21
PROVIDERS: PCP Nurse Practitioner Family; Visit Provider Nurse Practitioner Obstetrics & Gynecology
DX: Z12.31 Encounter for screening mammogram for malignant neoplasm of breast (principal); R92.333 Mammographic heterogeneous density, bilateral breasts
CPT/HCPCS: 77063; 77067